=== PATIENT | female | born 1945 | race Caucasian/White ===

== ENCOUNTER 2020-08-10 08:19 | Outpatient (REF) | payer MEDICARE, SELFPAY ==
[2020-08-10 11:44] LABS: Estimated Average Glucose 143 mg/dL; Hemoglobin A1C 151.4454 umol/L; Hemoglobin A1c % 6.6 %
[2020-08-10 11:47] LABS: Hematocrit 39.2 % (37-47); Hemoglobin 12.2 g/dl (12.0-16.0); Mean Corpuscular HGB Conc 31.1 g/dl (31.0-35.0); Mean Corpuscular Hemoglobin 26.2 pg (27.0-33.0); Mean Corpuscular Volume 84.3 fL (80-98); Mean Platelet Volume 9.3 fL (9.4-12.3); Platelet Count 243 X10*3/uL (160-400); Red Blood Count 4.65 X10*6/uL (4.20-5.50); Red Cell Distribution Width 14.1 % (11.0-16.0); White Blood Count 6.3 X10*3/uL (4.8-10.8)
[2020-08-10 12:22] LABS: Alanine Aminotransferase 12 U/L (0-31); Albumin Level 4.5 g/dL (3.5-5.0); Alkaline Phosphatase 64 U/L (39-117); Anion Gap 14 (12-20); Aspartate Amino Transferase 16 U/L (5-31); Bilirubin Total 0.8 mg/dL (0.0-1.0); Blood Urea Nitrogen 15 mg/dL (9-16); Calcium 9.4 mg/dL (8.4-10.2); Carbon Dioxide 29 mmol/L (22-29); Chloride 104 mmol/L (96-108); Cholesterol 172 mg/dL; Estimated Glomerular Filt Rate 54; Glucose Fasting 119 mg/dL (60-99); HDL Cholesterol 60 mg/dL; LDL Cholesterol Calculated 86 mg/dl; Potassium 4.6 mmol/L (3.3-5.1); Sodium 142 mmol/L (135-145); Total Protein 7.4 g/dL (6.5-8.0); Triglycerides 131 mg/dL
[2020-08-10 12:34] LABS: Creatinine Urine 98.26 mg/dL; Microalbum/Creatinine Ratio Ur 7.1 ug/mg cr
== END 2020-08-10 08:20 | disposition home or self-care (01) ==
LOC: HO.HMGCLDS 08:19
PROVIDERS: PCP Internal Medicine; Visit Provider Internal Medicine
DX: R13.12 Dysphagia, oropharyngeal phase (principal); I10 Essential (primary) hypertension; E11.9 Type 2 diabetes mellitus without complications; E78.2 Mixed hyperlipidemia
CPT/HCPCS: 36415; 80053; 80061; 82043; 83036; 85027

== ENCOUNTER → 2020-10-05 12:46 | Outpatient (BNVA) | payer MEDICARE, SELFPAY | PROVIDERS: PCP Internal Medicine; Visit Provider Physician Assistant ==

== ENCOUNTER → 2020-11-16 08:50 | Outpatient (BNVA) | payer MEDICARE, SELFPAY | PROVIDERS: PCP Internal Medicine; Referring Provider Internal Medicine; Visit Provider Nurse Practitioner Family | DX: K59.00 Constipation, unspecified (principal); Z12.11 Encounter for screening for malignant neoplasm of colon | CPT/HCPCS: Q3014 ==

== ENCOUNTER 2020-11-30 12:18 | Outpatient (REF) | payer MEDICARE, SELFPAY ==
[2020-11-30 13:57] LABS: Hematocrit 36.6 % (37-47); Hemoglobin 11.4 g/dl (12.0-16.0); Mean Corpuscular HGB Conc 31.1 g/dl (31.0-35.0); Mean Corpuscular Hemoglobin 25.8 pg (27.0-33.0); Mean Corpuscular Volume 82.8 fL (80-98); Platelet Count 267 X10*3/uL (160-400); Red Blood Count 4.42 X10*6/uL (4.20-5.50); White Blood Count 8.7 X10*3/uL (4.8-10.8)
[2020-11-30 14:30] LABS: Alanine Aminotransferase 14 U/L (0-31); Albumin Level 4.4 g/dL (3.5-5.0); Alkaline Phosphatase 69 U/L (39-117); Anion Gap 12 (12-20); Aspartate Amino Transferase 17 U/L (5-31); Bilirubin Total 0.3 mg/dL (0.0-1.0); Blood Urea Nitrogen 13 mg/dL (9-16); Calcium 9.7 mg/dL (8.4-10.2); Carbon Dioxide 27 mmol/L (22-29); Chloride 106 mmol/L (96-108); Estimated Glomerular Filt Rate 55; Glucose Random 104 mg/dL (60-115); Potassium 4.1 mmol/L (3.3-5.1); Sodium 141 mmol/L (135-145); Total Protein 7.2 g/dL (6.5-8.0)
== END 2020-11-30 12:19 | disposition home or self-care (01) ==
LOC: HO.HMGCLDS 12:18
PROVIDERS: PCP Internal Medicine; Visit Provider Internal Medicine
DX: R53.83 Other fatigue (principal)
CPT/HCPCS: 36415; 80053; 85027

== ENCOUNTER → 2020-12-18 09:06 | Outpatient (BNVA) | payer MEDICARE, SELFPAY | PROVIDERS: PCP Internal Medicine; Visit Provider Nurse Practitioner Family | DX: Z13.89 Encounter for screening for other disorder (principal) | CPT/HCPCS: Q3014 ==

== ENCOUNTER 2021-01-01 08:56 | Outpatient (REF) | payer MEDICARE, SELFPAY ==
[2021-01-01 11:40] LABS: Hematocrit 39.5 % (37-47); Hemoglobin 12.4 g/dl (12.0-16.0); Mean Corpuscular HGB Conc 31.4 g/dl (31.0-35.0); Mean Corpuscular Hemoglobin 26.3 pg (27.0-33.0); Mean Corpuscular Volume 83.7 fL (80-98); Mean Platelet Volume 9.1 fL (9.4-12.3); Platelet Count 258 X10*3/uL (160-400); Red Blood Count 4.72 X10*6/uL (4.20-5.50); Red Cell Distribution Width 14.2 % (11.0-16.0); White Blood Count 6.7 X10*3/uL (4.8-10.8)
[2021-01-01 12:15] LABS: Iron 57 mcg/dL (30-160); Percent Iron Saturation 17 % (15-50); Total Iron Binding Capacity 341 mcg/dL (228-428); Unsaturated Iron Binding 284 ug/dL
[2021-01-01 12:44] LABS: Vitamin B12 986 pg/mL (200-900)
== END 2021-01-01 08:57 | disposition home or self-care (01) ==
LOC: HO.HMGCLDS 08:56
PROVIDERS: PCP Internal Medicine; Visit Provider Internal Medicine
DX: R53.83 Other fatigue (principal); D64.9 Anemia, unspecified
CPT/HCPCS: 36415; 82607; 83540; 85027

== ENCOUNTER 2021-01-18 10:50 | Day surgery (SDC) | payer MEDICARE, SELFPAY ==
[2021-01-11 14:44] VITALS: BMI 29.9
--- NOTE | 2021-01-15 08:32 | P.CONAN_ITS ---
Documented by User: Trudi Graciela 01/15/21 08:33 HPI - Anesthesia Eval Consult details Narrative: 75yo F for Colonoscopy PMFSH Active Problems Active Problems: All Active Problems (Updated 12/01/20 @ 15:09 by Kayla Diego MD) Anemia (Acute) Fatigue (Acute) Type 2 diabetes mellitus (Acute) Hyperlipidemia (Acute) HTN (hypertension) (Acute) GERD (gastroesophageal reflux disease) (Acute) Normal colonoscopy (Acute) Past Medical History Medical History Anemia Chronic lower back pain Fatigue GERD (gastroesophageal reflux disease) HTN (hypertension) Hyperlipidemia Left shoulder tendinitis Normal colonoscopy Type 2 diabetes mellitus Family History Family History Father No problems noted. 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 Meds Allergies Allergy/AdvReac Type Severity Reaction Status Date / Time Erythromycin Allergy Intermediate abd pain Verified 01/11/21 14:31 Home Medications Medication Instructions Recorded Confirmed Last Taken Type cholecalciferol (vitamin D3) 50 50 mcg PO DAILY 10/05/20 01/11/21 Unknown History mcg (2,000 unit) capsule Exam Exam Date and Time: January 15, 2021 0832 Height,Weight and Vital Signs: Height 5 ft 2 in Weight 74.389 kg Pertinent Lab Results Pertinent Lab Results: Laboratory Tests 11/30/20 01/01/21 12:25 09:02 WBC 6.7 Hgb 12.4 Hct 39.5 Plt Count 258 Sodium 141 Potassium 4.1 Chloride 106 Carbon Dioxide 27 BUN 13 Creatinine 0.99 Assessment and Plan Assessment Anesthesia Assessment: Chart Reviewed Documented by User: Gneesis Quiñones MD 01/18/21 12:36 PMFSH Past Medical History Medical History Anemia Chronic lower back pain Fatigue GERD (gastroesophageal reflux disease) HTN (hypertension) Hyperlipidemia Left shoulder tendinitis Normal colonoscopy Type 2 diabetes mellitus Family History Family History Father No problems noted. 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 Meds Allergies Allergy/AdvReac Type Severity Reaction Status Date / Time Erythromycin Allergy Intermediate abd pain Verified 01/11/21 14:31 Home Medications Medication Instructions Recorded Confirmed Last Taken Type cholecalciferol (vitamin D3) 50 50 mcg PO DAILY 10/05/20 01/11/21 Unknown History mcg (2,000 unit) capsule Exam Airway Mallampati Class: II Neck ROM: Full Loose/Missing/Broken Teeth: No Heart: RRR Lungs: CTA Assessment and Plan Assessment Anesthesia Assessment: Anesthesia Plan Discussed Final Anesthetic Review History of Problems with Anesthesia: No NPO: Yes ASA Class: II Final Preanesthetic Review: Meds/Allgs Chart Reviewed, Consent Obtained/Reviewed and Anes Risks/Benef Reviewed Patient Risk: Low Procedure Risk: Low Anesthetic Plan Anesthetic Plan: MAC: Disposition: Standard PACU
[2021-01-18 11:06] VITALS: BP 150/72; PULSE 69; RESP 16; TEMP 36.5; O2SAT 96
[2021-01-18 11:12] LABS: Glucose, Whole Blood 107 mg/dL (60-115)
[2021-01-18] MEDS: Lactated Ringers 1,000 ML 100 ML IVCONT (11:21)
--- NOTE | 2021-01-18 12:16 | MHC.SHP ---
Pre-Procedural Eval Section A Date of Service: 01/18/21 The patient is an INPATIENT: No The History & Physical has been completed within 30 days and I have reviewed it.: No Section B Chief Complaint: Screening, Constipation Details of Present Illness: Colon cancer screening, family history of colon cancer Relevant Family History (Specify if Yes): Yes Relevant Social History: None Present Medications: see Short Stay Collaborative assessment Medical History: Significant History (Anemia Chronic lower back pain Fatigue GERD (gastroesophageal reflux disease) HTN (hypertension) Hyperlipidemia Left shoulder tendinitis Normal colonoscopy Type 2 diabetes mellitus) History of Previous Operations: Relevant previous surgery/procedure and date(s) (hx of colonoscopy) Allergies: Allergies Allergy/AdvReac Type Severity Reaction Status Date / Time Erythromycin Allergy Intermediate abd pain Verified 01/11/21 14:31 Review of Systems Sugical H&P ROS: Negative: Constitution, Cardiovascular, Respiratory and Gastrointestinal Exam Surgical H&P Exam: Normal: Heart, Normal: Lungs, Normal: Extremities and Normal: Abdomen Plan Diagnosis/Plan: Unchanged I have reviewed the history and physical and performed a pertinent physical examination on my patient. No changes have occurred unless specified.
--- NOTE | 2021-01-18 12:21 | P.BOP_ITS ---
Brief Operative Note Date of Service: 01/18/21 Pre-op diagnosis: Colon cancer screening, chronic constipation, family history of colon cancer (sister at age 58 yrs) Post-op diagnosis: other (Colon polyp, diverticulosis) Procedure: COLONOSCOPY TILL CECUM WITH THE SNARE POLYPECTOMY Consent: Indications for the procedure and potential complications of bleeding, perforation, reaction to medications and missed diagnosis were discussed with the patient and informed consent was obtained. Instrument: Olympus PCF H 190 L variable stiffness pediatric colonoscope Monitoring: Vital signs and clinical assessment, intermittent blood pressure monitoring, continuous EKG monitoring, Pulse oximetry and Carbon Dioxide monitoring were done throughout the procedure. Colon withdrawl time was 15 minutes. Procedure: The patient was placed in the left lateral decubitis position and pre-procedure medications were administered. After a digital rectal examination of the ano-rectum, the video colonoscope was inserted into the rectum and advanced through the colon to the cecum. The colonoscope was slowly withdrawn in a retrograde panoramic fashion and the colon mucosa was carefully examined including a retroflexed view of the rectum. Findings and interventions are described below. Procedure Difficulty: Without difficulty Findings: Terminal Ileum: Not evaluated Cecum: Normal Ascending Colon: Moderate diverticulosis Transverse Colon: Moderate diverticulosis Descending Colon: Moderate diverticulosis Sigmoid Colon: Moderate diverticulosis Rectum: A 10 mm sessile polyp removed with a cold snare Ano-rectum: Normal Colon preparation: Good after some irrigation Impression and Post Procedure Diagnosis: Colonoscopy Findings: One medium sized polyp removed Moderate diverticulosis seen in the entire colon Moderate hemorrhoids on retroflexed exam. Plan: Await pathology results Patient has an appointment on 02/09/21 in the [facility] with Althea Meredith FNP-BC . Repeat Colonoscopy interval based on path results - in 3-5 years if polyp is adenomatous and due to positive FH of colon cancer. Above findings were reviewed with the patient and colon polyps and diverticulosis handouts were given in the discharge area Surgeon: Abbi Reyes MD Anesthesia: MAC (Dr Quiñones) Was an Negative Developer used for this Procedure?: Yes Negative Developer: Jignesh Ellis Estimated blood loss (mL): 0 Pathology: other (A. RECTAL POLYP) Condition: stable Disposition: PACU
[2021-01-18 12:56] VITALS: BP 105/44; PULSE 69; RESP 18; TEMP 36.4; O2SAT 99
[2021-01-18 13:11] VITALS: BP 125/58; PULSE 60; RESP 16; O2SAT 97
--- NOTE | 2021-01-24 18:08 | P.OP_ITS ---
Operative Note Operative Note Date of Service: 01/18/21 Narrative: Pre-op diagnosis:?Colon cancer screening, chronic constipation, family history of colon cancer (sister at age 58 yrs) Post-op diagnosis:?other (Colon polyp, diverticulosis) Procedure:? COLONOSCOPY TILL CECUM WITH THE SNARE POLYPECTOMY Consent: Indications for the procedure and potential complications of bleeding, perforation, reaction to medications and missed diagnosis were discussed with the patient and informed consent was obtained. Instrument: Olympus PCF H 190 L variable stiffness pediatric colonoscope Monitoring: Vital signs and clinical assessment, intermittent blood pressure monitoring, continuous EKG monitoring, Pulse oximetry and Carbon Dioxide monitoring were done throughout the procedure. Colon withdrawl time was 15 minutes. Procedure: The patient was placed in the left lateral decubitis position and pre-procedure medications were administered. After a digital rectal examination of the ano-rectum, the video colonoscope was inserted into the rectum and advanced through the colon to the cecum. The colonoscope was slowly withdrawn in a retrograde panoramic fashion and the colon mucosa was carefully examined including a retroflexed view of the rectum. Findings and interventions are described below. Procedure Difficulty: Without difficulty Findings: Terminal Ileum: Not evaluated Cecum:? Normal Ascending Colon:? Moderate diverticulosis Transverse Colon:? Moderate diverticulosis Descending Colon:? Moderate diverticulosis Sigmoid Colon:? Moderate diverticulosis Rectum:? A 10 mm sessile polyp removed with a cold snare Ano-rectum:? Normal Colon preparation:? Good? after some irrigation Impression and Post Procedure Diagnosis: Colonoscopy Findings: One medium sized polyp removed Moderate diverticulosis seen in the entire colon Moderate hemorrhoids on retroflexed exam. Plan: Await pathology results Patient has an appointment on 02/09/21 in the GI Clinic with Althea Meredith FNP- BC . Repeat Colonoscopy interval based on path results - in 3-5 years if polyp is adenomatous and due to positive FH of colon cancer. Above findings were reviewed with the patient and colon polyps and diverticulosis handouts were given in the discharge area Surgeon:?Abbi Reyes MD Anesthesia:?MAC (Dr Quiñones) Was an Lace Roller Operator used for this Procedure?:?Yes Lace Roller Operator:?Jignesh Ellis Estimated blood loss (mL):?0 Pathology:?other (A. RECTAL POLYP) Condition:?stable Disposition:?PACU
== END 2021-01-18 14:00 | disposition home or self-care (01) ==
PROVIDERS: PCP Internal Medicine; Visit Provider Internal Medicine Gastroenterology
PROC: 0DJD8ZZ Inspection of Lower Intestinal Tract, Via Natural or Artificial Opening Endoscopic (ICD-10-PCS; CPT 45378; principal; 2021-01-18 12:00)
DX: Z12.11 Encounter for screening for malignant neoplasm of colon (principal); Z80.0 Family history of malignant neoplasm of digestive organs; K62.1 Rectal polyp; K57.30 Diverticulosis of large intestine without perforation or abscess without bleeding; K59.09 Other constipation; K21.9 Gastro-esophageal reflux disease without esophagitis; D64.9 Anemia, unspecified; R53.83 Other fatigue; I10 Essential (primary) hypertension; E11.9 Type 2 diabetes mellitus without complications; Z79.84 Long term (current) use of oral hypoglycemic drugs; Z79.899 Other long term (current) drug therapy
CPT/HCPCS: 45385; 82947; 88305

== ENCOUNTER → 2021-02-09 12:14 | Outpatient (BNVA) | payer MEDICARE, SELFPAY | PROVIDERS: PCP Internal Medicine; Visit Provider Nurse Practitioner Family | CPT/HCPCS: Q3014 ==

== ENCOUNTER 2021-02-22 09:28 | Outpatient (REF) | payer MEDICARE, SELFPAY ==
[2021-02-22 11:35] LABS: Hematocrit 37.2 % (37-47); Hemoglobin 11.7 g/dl (12.0-16.0); Mean Corpuscular HGB Conc 31.5 g/dl (31.0-35.0); Mean Corpuscular Hemoglobin 26.2 pg (27.0-33.0); Mean Corpuscular Volume 83.2 fL (80-98); Mean Platelet Volume 9.2 fL (9.4-12.3); Platelet Count 228 X10*3/uL (160-400); Red Blood Count 4.47 X10*6/uL (4.20-5.50); Red Cell Distribution Width 13.8 % (11.0-16.0); White Blood Count 6.6 X10*3/uL (4.8-10.8)
[2021-02-22 11:45] LABS: Alanine Aminotransferase 13 U/L (0-31); Albumin Level 4.4 g/dL (3.5-5.0); Alkaline Phosphatase 61 U/L (39-117); Anion Gap 14 (12-20); Aspartate Amino Transferase 19 U/L (5-31); Bilirubin Total 0.6 mg/dL (0.0-1.0); Blood Urea Nitrogen 11 mg/dL (9-16); Calcium 9.7 mg/dL (8.4-10.2); Carbon Dioxide 24 mmol/L (22-29); Chloride 107 mmol/L (96-108); Cholesterol 169 mg/dL; Estimated Glomerular Filt Rate 60; Glucose Fasting 107 mg/dL (60-99); HDL Cholesterol 55 mg/dL; LDL Cholesterol Calculated 88 mg/dl; Potassium 4.5 mmol/L (3.3-5.1); Sodium 140 mmol/L (135-145); Total Protein 7.4 g/dL (6.5-8.0); Triglycerides 133 mg/dL
[2021-02-22 11:54] LABS: Estimated Average Glucose 134 mg/dL; Hemoglobin A1c % 6.3 %
[2021-02-22 12:22] LABS: Microalbum/Creatinine Ratio Ur 10.9 ug/mg cr
== END 2021-02-22 09:29 | disposition home or self-care (01) ==
LOC: HO.HMGCLDS 09:28
PROVIDERS: PCP Internal Medicine; Visit Provider Internal Medicine
DX: E11.9 Type 2 diabetes mellitus without complications (principal); E78.5 Hyperlipidemia, unspecified; I10 Essential (primary) hypertension
CPT/HCPCS: 36415; 80053; 80061; 82043; 83036; 85027

== ENCOUNTER 2021-04-22 10:09 | Emergency (ER) | payer MEDICARE, SELFPAY ==
--- NOTE | ~2021-04-22 | US_ITS ---
EXAMINATION: US VENOUS ULTRASOUND WITH DOPPLER LOWER EXTREMITY, BILATERAL CLINICAL INFORMATION: Bilateral lower extremity edema/swelling. COMPARISON: None TECHNIQUE: Ultrasound of the deep veins is performed from the hip to the calf with compression sonography and color and pulse Doppler assessment. Spectral analysis with color-flow imaging is performed. FINDINGS: RIGHT: There is normal venous compression and respiratory variation and augmented flow. The visualized common femoral vein, superficial femoral vein, profunda femoral vein, popliteal vein, and the trifurcation region shows no evidence of deep venous thrombosis. There is no significant popliteal fossa cyst. LEFT: There is normal venous compression and respiratory variation and augmented flow. The visualized common femoral vein, superficial femoral vein, profunda femoral vein, popliteal vein, and the trifurcation region shows no evidence of deep venous thrombosis. There is no significant popliteal fossa cyst. If the patient's symptoms persist, followup ultrasound in 5 days 7 days might be of value to exclude proximal propagation from a non-visualized calf vein. US/US venous duplex LE BI IMPRESSION: No DVT demonstrated in the bilateral lower extremity.
[2021-04-22 10:17] VITALS: BP 176/67; PULSE 65; RESP 19; TEMP 36.1; O2SAT 99; BMI 29.2
[2021-04-22 12:00] LABS: Alanine Aminotransferase 16 U/L (0-31); Albumin Level 4.6 g/dL (3.5-5.0); Alkaline Phosphatase 71 U/L (39-117); Anion Gap 13 (12-20); Aspartate Amino Transferase 19 U/L (5-31); Bilirubin Total 0.6 mg/dL (0.0-1.0); Blood Urea Nitrogen 16 mg/dL (9-16); Calcium 9.6 mg/dL (8.4-10.2); Carbon Dioxide 24 mmol/L (22-29); Chloride 105 mmol/L (96-108); Estimated Glomerular Filt Rate 60; Glucose Random 107 mg/dL (60-115); Potassium 3.9 mmol/L (3.3-5.1); Sodium 138 mmol/L (135-145); Total Protein 7.7 g/dL (6.5-8.0)
--- NOTE | 2021-04-22 12:25 | ED_ITS ---
HPI - General Adult General Chief complaint: General Medical Stated complaint: swollen legs Time Seen by Provider: 04/22/21 12:25 Source: patient Mode of arrival: ambulatory Limitations: no limitations History of Present Illness HPI narrative: 5 days prior patient had right leg and left leg pain. New swelling since Monday to both legs, normally has no edema. No liver or kidney issues. Patient is a diabetic. There is a family history of blood clots. No new medications. No COVID, no recent travel Onset (ago): day(s) Associated symptoms: denies other symptoms Related Data Home Medications Medication Instructions Recorded Confirmed cholecalciferol (vitamin D3) 50 50 mcg PO DAILY 10/05/20 02/23/21 mcg (2,000 unit) capsule Previous Rx's Medication Instructions Recorded metformin 1,000 mg tablet 1,000 mg PO DAILY #90 tab 04/20/20 omeprazole 20 mg capsule,delayed 20 mg PO DAILY #90 cap 08/31/20 release irbesartan 150 mg tablet 150 mg PO DAILY #90 tab 10/01/20 methylcellulose (laxative) 500 mg 500 mg PO DAILY #30 tab 11/16/20 tablet (Citrucel) pravastatin 10 mg tablet 10 mg PO BEDTIME #90 tab 12/25/20 sertraline 50 mg tablet 50 mg PO DAILY #90 tab 02/23/21 furosemide 20 mg tablet (Lasix) 10 mg PO QAM #20 tab 04/22/21 Allergies Allergy/AdvReac Type Severity Reaction Status Date / Time Erythromycin Allergy Intermediate abd pain Verified 02/23/21 10:32 Review of Systems Constitutional: Constitutional: Reports no additional constitutional complaints Eyes: Eyes: Reports no additional eye complaints ENT: Denies dizziness Cardiovascular: Cardiovascular: Reports no additional cardiovascular complaints Respiratory: Respiratory: Reports as per HPI Gastrointestinal: Gastrointestinal: Reports no additional gastrointestinal complaints Genitourinary: Genitourinary: Reports no additional female genitourinary complaints Musculoskeletal: Musculoskeletal: Reports no additional musculoskeletal complaints Integumentary/Breasts: Skin/Breast: Denies rash Neurologic: Reports system reviewed and no additional complaints, except as documented, Denies dizziness and Denies Sensory deficit (Neuro) Psychiatric: Psychiatric: Denies anxiety [facility] Past Medical History Medical History (Updated 04/22/21 @ 13:46 by Angelo Lyons MD) Anemia Chronic lower back pain Diverticulosis Fatigue GERD (gastroesophageal reflux disease) HTN (hypertension) Hyperlipidemia Left shoulder tendinitis Normal colonoscopy Sciatica Type 2 diabetes mellitus Surgical History H/O colonoscopy Family History Family History Father No problems noted. 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 Physical Exam Vital Signs: Vital Signs: Last Vital Signs Temp 97 F 04/22/21 10:17 Pulse 65 04/22/21 10:17 Resp 19 04/22/21 10:17 BP 176/67 H 04/22/21 10:17 Pulse Ox 99 04/22/21 10:17 Body Mass Index 29.2 Const: General: healthy appearing Nutritional Appearance: average body habitus Orientation/consciousness: oriented to person and patient oriented x3 Limitations: no limitations HENMT: Head: Yes normal to inspection Ears: external ears normal General nose exam: Normal external nose present Mouth: Normal oral and palatal mucosa present and oropharynx normal Throat: Yes posterior oropharynx normal Eyes: General: appearance normal, both eyes and all related structures Neck: Other: supple Neck: Yes normal visual inspection Chest: Chest palpation & inspection: normal inspection of the chest Resp: Auscultation: clear to auscultation bilaterally Cardio: Jugular venous distension: no JVD Rate: regular rate Rhythm: regular rhythm Heart sounds: S1 normal heart sound present and S2 normal heart sound present GI: Inspection: Yes normal to inspection Palpation (GI): Soft to palpation, nontender and No hepatosplenomegaly present Auscultation: normal bowel sounds : General: Yes no CVA tenderness Back/Spine/Pelvis: Back: no CVA tenderness Skin: General skin exam: no rashes or lesions noted Neuro: General: oriented to person and patient oriented x3 Cranial nerves: Yes CN's II-XII intact bilaterally Motor exam (neuro): 5/5 motor strength present throughout Sensory Exam: No Sensory deficit (Neuro) Extrem: Other: Bilateral 2+ edema Psych: Appearance: grossly normal Course Reevaluation(s) Reevaluation #1: labs and duplex normal will dc on low dose lasix Time: 13:45 Medical Decision Making Lab Data Result diagrams: 04/22/21 13:30 04/22/21 11:38 Labs: Lab Results 04/22/21 04/22/21 Range/Units 11:38 13:30 WBC 7.7 (4.8-10.8) X10*3/uL RBC 4.50 (4.20-5.50) X10*6/uL Hgb 11.9 L (12.0-16.0) g/dl Hct 38.0 (37.0-47.0) % MCV 84.4 (80.0-98.0) fL MCH 26.4 L (27.0-33.0) pg MCHC 31.3 (31.0-35.0) g/dl RDW 13.9 (11.0-16.0) % Plt Count 229 (160-400) X10*3/uL MPV 8.7 L (9.4-12.3) fL Immature Gran % (Auto) 0.4 (0.0-0.4) % Neut % (Auto) 58.2 (45-73) % Lymph % (Auto) 33.1 (20-40) % Cole % (Auto) 6.1 (2-11) % Eos % (Auto) 1.8 (0-4) % Baso % (Auto) 0.4 (0-2) % Lymph # (Auto) 2.6 (1.2-4.9) X10*3/uL Cole # (Auto) 0.5 (0.1-1.2) X10*3/uL Eos # (Auto) 0.1 (0.0-0.4) X10*3/uL Baso # (Auto) 0.0 (0.0-0.2) X10*3/uL Abs Immat Gran (auto) 0.03 (0.00-0.03) X10*3/uL Absolute Neuts (auto) 4.5 (2.0-8.3) x10*3/uL Absolute Nucleated RBC 0.000 (0.0-0.012) X10*3/uL Nucleated RBC % (auto) 0.0 (0.0-0.2) /100WBC Sodium 138 (135-145) mmol/L Potassium 3.9 (3.3-5.1) mmol/L Chloride 105 (96-108) mmol/L Carbon Dioxide 24 (22-29) mmol/L Anion Gap 13 (12-20) BUN 16 (9-16) mg/dL Creatinine 0.92 (0.5-1.4) mg/dL Estim Creat Clear Calc 50.0 Estimated GFR 60 Random Glucose 107 (60-115) mg/dL Calcium 9.6 (8.4-10.2) mg/dL Total Bilirubin 0.6 (0.0-1.0) mg/dL AST 19 (5-31) U/L ALT 16 (0-31) U/L Alkaline Phosphatase 71 (39-117) U/L Total Protein 7.7 (6.5-8.0) g/dL Albumin 4.6 (3.5-5.0) g/dL Imaging Data bilateral duplex: Radiologist's impression: IMPRESSION: No DVT demonstrated in the bilateral lower extremity. Discharge Plan Discharge Clinical Impression: Edema leg Patient Disposition: Home, Self-Care Instructions: Leg Edema (ED) Additional Instructions: wear compression socks when legs are not elevated Prescriptions: New furosemide [Lasix] 20 mg tablet 10 mg PO QAM Qty: 20 RF: 0 No Action metformin 1,000 mg tablet 1,000 mg PO DAILY Qty: 90 RF: 3 omeprazole 20 mg capsule,delayed release(DR/EC) 20 mg PO DAILY Qty: 90 RF: 3 irbesartan 150 mg tablet 150 mg PO DAILY Qty: 90 RF: 3 pravastatin 10 mg tablet 10 mg PO BEDTIME Qty: 90 RF: 3 sertraline 50 mg tablet 50 mg PO DAILY Qty: 90 RF: 3 cholecalciferol (vitamin D3) 50 mcg (2,000 unit) capsule 50 mcg PO DAILY RF: 0 Citrucel 500 mg tablet 500 mg PO DAILY Qty: 30 RF: 2 Referrals: Kayla Diego MD [Primary Care Provider] - 1 week
[2021-04-22 13:39] LABS: MANUAL DIFF FLAG NO
[2021-04-22 13:41] LABS: Basophils Percent Auto 0.4 % (0-2); Eosinophils Absolute Auto 0.1 X10*3/uL (0.0-0.4); Eosinophils Percent Auto 1.8 % (0-4); Hemoglobin 11.9 g/dl (12.0-16.0); Imm Gran Abs Auto 0.03 X10*3/uL (0.00-0.03); Imm Gran Pct Auto 0.4 % (0.0-0.4); Lymphocytes Absolute Auto 2.6 X10*3/uL (1.2-4.9); Lymphocytes Percent Auto 33.1 % (20-40); Mean Corpuscular HGB Conc 31.3 g/dl (31.0-35.0); Mean Corpuscular Hemoglobin 26.4 pg (27.0-33.0); Mean Corpuscular Volume 84.4 fL (80.0-98.0); Mean Platelet Volume 8.7 fL (9.4-12.3); Monocytes Absolute Auto 0.5 X10*3/uL (0.1-1.2); Monocytes Percent Auto 6.1 % (2-11); Neutrophils Absolute Auto 4.5 x10*3/uL (2.0-8.3); Neutrophils Percent Auto 58.2 % (45-73); Platelet Count 229 X10*3/uL (160-400); Red Cell Distribution Width 13.9 % (11.0-16.0); White Blood Count 7.7 X10*3/uL (4.8-10.8)
[2021-04-22 14:06] LABS: B Type Natriuretic Peptide 66 pg/mL (<100)
== END 2021-04-22 14:05 | disposition home or self-care (01) ==
PROVIDERS: Emergency Provider Emergency Medicine; PCP Internal Medicine
DX: R60.0 Localized edema (principal); I10 Essential (primary) hypertension; E11.9 Type 2 diabetes mellitus without complications
CPT/HCPCS: 36415; 80053; 83880; 85025; 93970; 99282; 99284

== ENCOUNTER 2021-05-07 11:11 | Emergency (ER) | payer MEDICARE, SELFPAY ==
--- NOTE | ~2021-05-07 | XR_ITS ---
EXAMINATION: XR CHEST CLINICAL INFORMATION: Shortness of breath COMPARISON: Chest radiographs 03/05/2019 TECHNIQUE: Portable upright AP view of the chest was obtained. FINDINGS: The heart is normal in size and the vascularity is normal. There is no vascular congestion. No lobar or segmental airspace consolidation. Fine linear scar again suggested lateral left base. There is borderline blunting right costophrenic angle which may suggest small effusion or subsegmental atelectasis. The hilar and mediastinal contours are normal. No visible acute bony abnormality. XR/XR chest 1V IMPRESSION: 1. Blunting right lateral costophrenic angle which may suggest small effusion or subsegmental atelectasis. 2. No vascular congestion or airspace consolidation.
--- NOTE | ~2021-05-07 | US_ITS ---
EXAMINATION: BILATERAL LOWER EXTREMITY DEEP VENOUS ULTRASOUND CLINICAL INFORMATION: Bilateral lower extremity pain and swelling. COMPARISON: Bilateral lower extremity DVT study 04/22/2021 TECHNIQUE: Duplex Doppler imaging with compression maneuvers were performed of the bilateral lower extremity deep venous systems. FINDINGS: The bilateral visualized common femoral, femoral and popliteal veins demonstrate normal compressibility and color flow without evidence of venous thrombosis. Visualized portions of the bilateral calf veins demonstrate normal color fill-in suggesting patency. There is no evidence of a Skinner's cyst. US/US venous duplex LE BI IMPRESSION: No evidence of deep venous thrombosis involving the bilateral lower extremities.
[2021-05-07 11:13] VITALS: BP 117/60; PULSE 64; RESP 18; TEMP 36.6; O2SAT 100; BMI 30.2
--- NOTE | 2021-05-07 16:08 | ECG_ITS ---
Test Reason : EDEMA Blood Pressure : / mmHG Vent. Rate : 063 BPM Atrial Rate : 063 BPM P-R Int : 144 ms QRS Dur : 072 ms QT Int : 406 ms P-R-T Axes : 008 018 021 degrees QTc Int : 415 ms Normal sinus rhythm Normal ECG No previous ECGs available Referred By: Elza Cook Electronically Signed By:RISHI CARDENAS MD
--- NOTE | 2021-05-07 16:12 | ED_ITS ---
HPI - General Adult General Chief complaint: General Medical Stated complaint: swollen legs Time Seen by Provider: 05/07/21 15:58 Source: patient Mode of arrival: ambulatory Limitations: no limitations History of Present Illness HPI narrative: 76-year-old female with a history of type 2 diabetes, HTN, HLD, GERD, sciatica presents to the ER with leg swelling for the last 2 and half weeks. Patient was seen here on April 22 for similar presentation. She had negative lower extremity Dopplers the normal BNP. She went back to an urgent care today for worsening edema, they advised her to come to the emergency room for further evaluation with concern of heart failure. Patient admits to some mild shortness of breath when she is lying flat. She has no shortness of breath at rest or with exertion. She admits to a high salt diet. She has not been wearing compression stockings and she rarely elevates her legs. She has known venous insufficiency and varicose veins of her bilateral lower extremities. She states while in the waiting room with her legs dependent her ?kankles? have gotten bigger. No fever, chills, calf pain, chest pain. MD complaint: Lower extremity edema Onset (ago): week(s) (2-3) Location: left, right and lower extremity Radiation: proximal Severity: moderate Severity scale (1-10): 5 Quality: aching Pain Consistency: constant Relieving factors: none Exacerbating factors: movement Associated symptoms: other (Mild orthopnea) Treatments prior to arrival: none Related Data Home Medications Medication Instructions Recorded Confirmed cholecalciferol (vitamin D3) 50 50 mcg PO DAILY 10/05/20 05/05/21 mcg (2,000 unit) capsule Previous Rx's Medication Instructions Recorded metformin 1,000 mg tablet 1,000 mg PO DAILY #90 tab 04/20/20 omeprazole 20 mg capsule,delayed 20 mg PO DAILY #90 cap 08/31/20 release irbesartan 150 mg tablet 150 mg PO DAILY #90 tab 10/01/20 methylcellulose (laxative) 500 mg 500 mg PO DAILY #30 tab 11/16/20 tablet (Citrucel) pravastatin 10 mg tablet 10 mg PO BEDTIME #90 tab 12/25/20 sertraline 50 mg tablet 50 mg PO DAILY #90 tab 02/23/21 furosemide 20 mg tablet (Lasix) 10 mg PO QAM #20 tab 04/22/21 doxycycline hyclate 100 mg capsule 200 mg PO ONCE #2 cap 05/01/21 permethrin 5 % topical cream 1 appl TOPICAL Q14D #60 g 05/01/21 furosemide 20 mg tablet (Lasix) 20 mg PO QAM #5 tab 05/07/21 Allergies Allergy/AdvReac Type Severity Reaction Status Date / Time Erythromycin Allergy Intermediate abd pain Verified 05/07/21 11:13 Review of Systems Review of Systems: Constitutional: No Fever, No Chills ENT/Mouth: No sore throat, No Rhinorrhea, No Swallowing Difficulty Cardiovascular: No Chest Pain, No SOB, + Orthopnea, + Edema Respiratory: No Cough, No Sputum, No Wheezing, No dyspnea Gastrointestinal: No Nausea, No Vomiting, No Diarrhea, No abdominal Pain Genitourinary: No Dysuria, No Urinary Frequency, No Hematuria Musculoskeletal: No joint pain, No Myalgias Skin: No Skin Lesions, No rash Neuro: No Weakness, No Numbness, No Dizziness, No Headache Psych: + Anxiety/Panic, No Depression Heme/Lymph: No Bruising, No Lymphadenopathy Endocrine: No Polyuria, No Polydipsia PMFSH Past Medical History Medical History Anemia Chronic lower back pain Diverticulosis Fatigue GERD (gastroesophageal reflux disease) HTN (hypertension) Hyperlipidemia Left shoulder tendinitis Normal colonoscopy Sciatica Type 2 diabetes mellitus Venous insufficiency Surgical History H/O colonoscopy Family History Family History Father No problems noted. 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 Oriented X3. No acute distress. Eyes: Pupils equal, round and reactive to light. ENT: Pharynx normal. Neck: Normal inspection. Neck supple. CVS: Normal heart rate and rhythm. Pulses normal. Respiratory: No respiratory distress. Breath sounds normal. Abdomen: Soft and nontender. +BS x4 Skin: Skin warm and dry. Normal skin color. Normal skin turgor. No rashes. Extremities: 2+ pitting lower extremity edema from feet to just below the knee. warm and well perfused. Superficial varicose veins present on the distal aspect of both lower extremities. Neuro: Oriented X 3. No motor deficit. No sensory deficit. Course Course Course Narrative: 76-year-old female presenting with worsening lower extremity edema for the last 2 or 3 weeks. She endorses some mild orthopnea and states the lower extremity swelling is getting worse. She has no history of CHF and is not on any diuretics. She admits to a high salt diet. She has not been weighing herself so does not know if she has gained weight. She had recent negative workup on 04/22. Will repeat workup including repeat lower extremity Dopplers to rule out distal DVT that may have propagated. Patient agreeable with plan. Her exam is reassuring with normal vital signs and clear lungs. Reevaluation(s) Reevaluation #1: May use more. Normal kidney function. Electrolytes are within normal limits. Troponin not concerning for ACS. EKG is normal. Chest x-ray s howed question of some atelectasis at the right lower lobe versus a trace pleural effusion. She is saturating 99% on room air and has no respiratory distress. Her lower extremity Dopplers are negative for DVT. At this time will give low-dose Lasix to help her excrete some extra water. We discussed the importance of restricting her salt and lifestyle modifications with leg elevation and compression stockings. Patient expressed understanding all follow-up with her primary care doctor. Medical Decision Making Lab Data Result diagrams: 05/07/21 16:32 05/07/21 16:32 Labs: Lab Results 05/07/21 05/07/21 05/07/21 Range/Units 16:32 16:32 16:32 WBC 9.0 (4.8-10.8) X10*3/uL RBC 4.23 (4.20-5.50) X10*6/uL Hgb 11.1 L (12.0-16.0) g/dl Hct 35.8 L (37.0-47.0) % MCV 84.6 (80.0-98.0) fL MCH 26.2 L (27.0-33.0) pg MCHC 31.0 (31.0-35.0) g/dl RDW 14.0 (11.0-16.0) % Plt Count TNP MPV 9.7 (9.4-12.3) fL Immature Gran % (Auto) 0.6 H (0.0-0.4) % Neut % (Auto) 56.3 (45-73) % Lymph % (Auto) 34.4 (20-40) % [place] % (Auto) 6.0 (2-11) % Eos % (Auto) 2.0 (0-4) % Baso % (Auto) 0.7 (0-2) % Lymph # (Auto) 3.1 (1.2-4.9) X10*3/uL [place] # (Auto) 0.5 (0.1-1.2) X10*3/uL Eos # (Auto) 0.2 (0.0-0.4) X10*3/uL Baso # (Auto) 0.1 (0.0-0.2) X10*3/uL Abs Immat Gran (auto) 0.05 H (0.00-0.03) X10*3/uL Absolute Neuts (auto) 5.1 (2.0-8.3) x10*3/uL Absolute Nucleated RBC 0.000 (0.0-0.012) X10*3/uL Nucleated RBC % (auto) 0.0 (0.0-0.2) /100WBC Smear Tech's Comments VERIFIED Sodium 139 (135-145) mmol/L Potassium 3.7 (3.3-5.1) mmol/L Chloride 104 (96-108) mmol/L Carbon Dioxide 23 (22-29) mmol/L Anion Gap 16 (12-20) BUN 13 (9-16) mg/dL Creatinine 0.94 (0.5-1.4) mg/dL Estim Creat Clear Calc 49.7 Estimated GFR 58 Random Glucose 108 (60-115) mg/dL Calcium 9.8 (8.4-10.2) mg/dL Magnesium 2.1 (1.6-2.6) mg/dL Total Bilirubin 0.4 (0.0-1.0) mg/dL Direct Bilirubin 0.2 (0.0-0.5) mg/dL AST 20 (5-31) U/L ALT 17 (0-31) U/L Alkaline Phosphatase 78 (39-117) U/L Troponin I High Sens 6.9 (<3.5-17.0) ng/L B-Natriuretic Peptide 52 (<100) pg/mL Total Protein 7.6 (6.5-8.0) g/dL Albumin 4.4 (3.5-5.0) g/dL Urine Color Urine Appearance Urine pH (5.0-8.0) Ur Specific [place] (1.005-1.025) Urine Protein (NEG-TRACE) MG/DL Urine Glucose (UA) (NEG) MG/DL Urine Ketones (NEG) MG/DL Urine Blood (NEG) Urine Nitrite (NEG) Ur Leukocyte Esterase (NEG) Urine RBC (0) /HPF Urine WBC (0-4) /HPF Ur Squamous Epith Cells /LPF Urine Bacteria /LPF 05/07/21 Range/Units 16:32 WBC (4.8-10.8) X10*3/uL RBC (4.20-5.50) X10*6/uL Hgb (12.0-16.0) g/dl Hct (37.0-47.0) % MCV (80.0-98.0) fL MCH (27.0-33.0) pg MCHC (31.0-35.0) g/dl RDW (11.0-16.0) % Plt Count MPV (9.4-12.3) fL Immature Gran % (Auto) (0.0-0.4) % Neut % (Auto) (45-73) % Lymph % (Auto) (20-40) % [place] % (Auto) (2-11) % Eos % (Auto) (0-4) % Baso % (Auto) (0-2) % Lymph # (Auto) (1.2-4.9) X10*3/uL [place] # (Auto) (0.1-1.2) X10*3/uL Eos # (Auto) (0.0-0.4) X10*3/uL Baso # (Auto) (0.0-0.2) X10*3/uL Abs Immat Gran (auto) (0.00-0.03) X10*3/uL Absolute Neuts (auto) (2.0-8.3) x10*3/uL Absolute Nucleated RBC (0.0-0.012) X10*3/uL Nucleated RBC % (auto) (0.0-0.2) /100WBC Smear Tech's Comments Sodium (135-145) mmol/L Potassium (3.3-5.1) mmol/L Chloride (96-108) mmol/L Carbon Dioxide (22-29) mmol/L Anion Gap (12-20) BUN (9-16) mg/dL Creatinine (0.5-1.4) mg/dL Estim Creat Clear Calc Estimated GFR Random Glucose (60-115) mg/dL Calcium (8.4-10.2) mg/dL Magnesium (1.6-2.6) mg/dL Total Bilirubin (0.0-1.0) mg/dL Direct Bilirubin (0.0-0.5) mg/dL AST (5-31) U/L ALT (0-31) U/L Alkaline Phosphatase (39-117) U/L Troponin I High Sens (<3.5-17.0) ng/L B-Natriuretic Peptide (<100) pg/mL Total Protein (6.5-8.0) g/dL Albumin (3.5-5.0) g/dL Urine Color YELLOW Urine Appearance CLEAR Urine pH 7.0 (5.0-8.0) Ur Specific [place] <= 1.005 (1.005-1.025) Urine Protein NEG (NEG-TRACE) MG/DL Urine Glucose (UA) NEG (NEG) MG/DL Urine Ketones NEG (NEG) MG/DL Urine Blood NEG (NEG) Urine Nitrite NEG (NEG) Ur Leukocyte Esterase TRACE H (NEG) Urine RBC 0-2 (0) /HPF Urine WBC 5-9 H (0-4) /HPF Ur Squamous Epith Cells TRACE /LPF Urine Bacteria TRACE /LPF ECG Data Attestation: I personally reviewed and interpreted this ECG as follows: Interpretation: Normal sinus rhythm, heart rate 63 beats per minute, normal NE interval 144 MS, no ST segment elevations or depressions, no ischemic findings. Critical Care Time Critical Care Time Critical Care Time: No Discharge Plan Discharge Clinical Impression: Edema Qualifiers: Edema type: unspecified Qualified Code(s): R60.9 - Edema, unspecified Patient Disposition: Home, Self-Care Instructions: Leg Edema (ED) Additional Instructions: Your lab workup today was unremarkable an your leg ultrasound did not show any blood clots. For your leg swelling and edema recommend taking the prescribed water pill to help you excrete extra water. You must decrease her salt intake, recommend 1.5 g or less. Do your best to elevate her legs whenever possible. Recommend getting compression stockings to help with the swelling as well. He was follow-up with your doctor for further management. If you develop new or worsening symptoms call 911 or come back to the ER for further evaluation. Prescriptions: New furosemide [Lasix] 20 mg tablet 20 mg PO QAM Qty: 5 RF: 0 No Action metformin 1,000 mg tablet 1,000 mg PO DAILY Qty: 90 RF: 3 omeprazole 20 mg capsule,delayed release(DR/EC) 20 mg PO DAILY Qty: 90 RF: 3 irbesartan 150 mg tablet 150 mg PO DAILY Qty: 90 RF: 3 pravastatin 10 mg tablet 10 mg PO BEDTIME Qty: 90 RF: 3 sertraline 50 mg tablet 50 mg PO DAILY Qty: 90 RF: 3 furosemide [Lasix] 20 mg tablet 10 mg PO QAM Qty: 20 RF: 0 permethrin 5 % cream 1 appl topical Q14D Qty: 60 RF: 0 doxycycline hyclate 100 mg capsule 200 mg PO ONCE Qty: 2 RF: 0 cholecalciferol (vitamin D3) 50 mcg (2,000 unit) capsule 50 mcg PO DAILY RF: 0 Citrucel 500 mg tablet 500 mg PO DAILY Qty: 30 RF: 2 Referrals: Kayla Diego MD [Primary Care Provider] - 1 week
[2021-05-07 16:41] LABS: Appearance Urine CLEAR; Color Urine YELLOW; Glucose Urine UA NEG (NEG); Leukocyte Esterase Urine TRACE (NEG); Nitrite Urine NEG (NEG); Specific Gravity - Urine <= 1.005 (1.005-1.025); UACC Culture Trigger YES; Urine Blood NEG (NEG); Urine Ketones NEG (NEG); Urine Protein NEG (NEG-TRACE)
[2021-05-07 16:44] LABS: Basophils Absolute Auto 0.1 X10*3/uL (0.0-0.2); Basophils Percent Auto 0.7 % (0-2); Eosinophils Absolute Auto 0.2 X10*3/uL (0.0-0.4); Hematocrit 35.8 % (37.0-47.0); Hemoglobin 11.1 g/dl (12.0-16.0); Imm Gran Abs Auto 0.05 X10*3/uL (0.00-0.03); Imm Gran Pct Auto 0.6 % (0.0-0.4); Lymphocytes Absolute Auto 3.1 X10*3/uL (1.2-4.9); Lymphocytes Percent Auto 34.4 % (20-40); MANUAL DIFF FLAG SCAN; Mean Corpuscular Hemoglobin 26.2 pg (27.0-33.0); Mean Corpuscular Volume 84.6 fL (80.0-98.0); Mean Platelet Volume 9.7 fL (9.4-12.3); Monocytes Absolute Auto 0.5 X10*3/uL (0.1-1.2); Neutrophils Absolute Auto 5.1 x10*3/uL (2.0-8.3); Neutrophils Percent Auto 56.3 % (45-73); PLT CLUMP 1; Red Blood Count 4.23 X10*6/uL (4.20-5.50); SCAN SMEAR FLAG 1
[2021-05-07 16:56] LABS: Alanine Aminotransferase 17 U/L (0-31); Albumin Level 4.4 g/dL (3.5-5.0); Alkaline Phosphatase 78 U/L (39-117); Anion Gap 16 (12-20); Aspartate Amino Transferase 20 U/L (5-31); Bilirubin Direct 0.2 mg/dL (0.0-0.5); Bilirubin Total 0.4 mg/dL (0.0-1.0); Blood Urea Nitrogen 13 mg/dL (9-16); Calcium 9.8 mg/dL (8.4-10.2); Carbon Dioxide 23 mmol/L (22-29); Chloride 104 mmol/L (96-108); Creatinine Clr Calc Pharmacy 49.7; Estimated Glomerular Filt Rate 58; Glucose Random 108 mg/dL (60-115); Magnesium 2.1 mg/dL (1.6-2.6); Potassium 3.7 mmol/L (3.3-5.1); Sodium 139 mmol/L (135-145); Total Protein 7.6 g/dL (6.5-8.0)
[2021-05-07 17:04] LABS: Troponin-I High Sensitivity 6.9 ng/L (<3.5-17.0)
[2021-05-07 17:09] LABS: RBC Urine 0-2 /HPF (0)
[2021-05-07 17:10] LABS: Bacteria Urine TRACE /LPF; Squamous Epithelial Cell Urine TRACE /LPF
[2021-05-07 17:13] LABS: B Type Natriuretic Peptide 52 pg/mL (<100)
[2021-05-07 17:16] LABS: SLIDE REVIEW VERIFIED
== END 2021-05-07 18:28 | disposition home or self-care (01) ==
PROVIDERS: Physician Assistant; Emergency Provider Emergency Medicine; PCP Internal Medicine
DX: R60.0 Localized edema (principal); R06.02 Shortness of breath; E11.9 Type 2 diabetes mellitus without complications; I10 Essential (primary) hypertension; E78.5 Hyperlipidemia, unspecified; Z79.02 Long term (current) use of antithrombotics/antiplatelets; Z79.899 Other long term (current) drug therapy
CPT/HCPCS: 36415; 71045; 80048; 80076; 81001; 83735; 83880; 84484; 85025; 87086; 93005; 93970; 99283; 99284

== ENCOUNTER 2021-06-09 08:31 | Outpatient (REF) | payer MEDICARE, SELFPAY ==
--- NOTE | ~2021-06-09 | US_ITS ---
EXAMINATION: US ABDOMEN COMPLETE CLINICAL INFORMATION: Abdominal distention. COMPARISON: No similar priors. TECHNIQUE: Real-time imaging of the abdominal viscera. FINDINGS: PANCREAS: Tail is obscured by overlying bowel gas. The visualized segments of the proximal pancreas are within normal limits. ABDOMINAL AORTA: The proximal, mid, and distal segments are normal in caliber. INFERIOR VENA CAVA: Visualized portions are normal. LIVER: Normal. The liver is normal in size. The liver contour is normal. Parenchymal echogenicity is normal. No focal hepatic lesion. There is no intrahepatic biliary duct dilatation seen. GALLBLADDER: Normal. The gallbladder is physiologically distended without evidence of stones, sludge, polyps, wall thickening or pericholecystic fluid. COMMON BILE DUCT: Normal in caliber measuring 0.6 cm in diameter. RIGHT KIDNEY: Normal. No hydronephrosis. No renal calculi or focal parenchymal lesions. The kidney measures 9.7 cm in maximum dimension. LEFT KIDNEY: Normal. No hydronephrosis. No renal calculi or focal parenchymal lesions. The kidney measures 9.6 cm in maximum dimension. SPLEEN: Normal. The spleen measures 9.9 cm in maximum dimension. FREE FLUID: None. US/US abdomen complete IMPRESSION: No acute sonographic findings. Specifically, no evidence of ascites.
--- NOTE | ~2021-06-09 | US_ITS ---
EXAMINATION: US PELVIS CLINICAL INFORMATION: Pelvic distention. Evaluate for ascites and masses. Postmenopausal. COMPARISON: No similar priors. TECHNIQUE: Ultrasound of the pelvis is performed using both transabdominal and transvaginal transducers along with Doppler. Transvaginal imaging is performed due to inadequate visualization transabdominally. FINDINGS: Uterus: The uterus is anteverted and measures 5.9 x 2.4 x 3.6 cm. The endometrial thickness is 3 mm. The uterus is smooth in contour and has normal myometrial echogenicity. No visible fibroid. There are indeterminate hyperechoic foci in the cervix, likely related with calcifications and of uncertain significance. Adnexa: Both ovaries are identified although the left ovary is only visualized in transabdominal images. There is normal color flow to the adnexa. There is no pelvic ascites or fluid collection. Right ovary measures 1.9 x 1.7 x 1.6 cm. Left ovary measures 2.8 x 1.1 x 1.3 cm. US/US pelvic and transvaginal IMPRESSION: No acute sonographic abnormalities. Specifically, no evidence of pelvic masses or ascites. Of note, evaluation was somewhat limited due to overlying shadowing from bowel gas and therefore if symptoms persists, consider correlation with a CT or MR.
== END 2021-06-09 08:32 | disposition home or self-care (01) ==
LOC: HO.HMGCX 08:31
PROVIDERS: PCP Internal Medicine; Visit Provider Internal Medicine
DX: R60.9 Edema, unspecified (principal); R19.00 Intra-abdominal and pelvic swelling, mass and lump, unspecified site; R18.8 Other ascites; I87.2 Venous insufficiency (chronic) (peripheral)
CPT/HCPCS: 76700; 76830; 76856

== ENCOUNTER → 2021-07-13 08:26 | Outpatient (REF) | payer MEDICARE, SELFPAY ==
--- NOTE | 2021-07-13 08:29 | CA_ITS ---
Transthoracic Echocardiogram Patient (Last, First, Middle): Aysha Wadsworth, Gender: Female Date of : 1945 Age: 76 Procedure Date: 07/13/2021 Procedure Type: Transthoracic Echocardiogram Location: OP Height: 157.48 cm Weight: 78.47 kg BSA: 1.80 m2 Heart Rate: bpm BP: 130 / 60 mmHg District [employer] Service Agent: Referring MD: Kayla Diego MD Symptoms: R60.9 - Edema, unspecified Study Quality: Fair ECG Rhythm: Sinus Conclusions: - The left ventricular systolic function is hyperdynamic. The calculated ejection fraction is 71% by biplane method. - There is mild tricuspid valve regurgitation. Findings Left Ventricle Normal left ventricular cavity size. There is mildly increased left ventricular wall thickness. The left ventricular systolic function is hyperdynamic. The calculated ejection fraction is 71% by biplane method. There is no evidence of regional wall motion abnormalities. Diastolic function is normal for age. Right Ventricle Normal right ventricular cavity size and systolic function. Atria Both atria are normal in size. Aortic Valve There is a normal trileaflet aortic valve. There is no aortic valve stenosis. There is no aortic valve regurgitation. Mitral Valve The mitral valve appears normal. There is no mitral valve regurgitation. There is no mitral valve stenosis. Pulmonic Valve The pulmonic valve was not well visualized. Tricuspid Valve Normal tricuspid valve structure. There is mild tricuspid valve regurgitation. The pulmonary artery systolic pressure is normal. Great Vessels The aortic annulus, sinuses of valsalva, and asc aorta are normal in size. Venous The inferior vena cava is normal in size and collapses greater than 50% with inspiration. Pericardium/Pleural There is no evidence of pericardial effusion. Prior Study Comparison No prior study available for comparison. Measurements 2D Linear Measurements IVSd: 1.24 0.6-0.9/0.6-1.0 cm LVIDd: 4.13 3.9-5.3/4.2-5.9 cm LVIDd Index: 2.29 2.4-3.2/2.2-3.1 cm/m2 LVIDs: 2.62 2.0-3.6 cm LVPWd: 1.21 0.7-1.1 cm Ao Root: 3.00 2.1-3.5 cm LA Diam: 3.30 2.7-3.8/3.0-4.0 cm LAIDs Index: 1.83 1.5-2.3 cm/m2 LV Mass: 223.02 67-162/88-224 g LV Mass Index: 123.90 43-95/49-115 g/m2 LVOT Diam: 2.10 3.0+(-)1.3 cm 2D Systolic Function EF 4C: 71.30 >55% EF 2C: 69.70 >55% EF BiP: 71.20 >55% Mitral Valve MV Pk E: 0.80 MV PK A: 0.99 MV Decel Time: 196.00 E/A: 0.80 E'Lateral: 10.40 E'Medial: 6.96 E/E' Med: 11.50 E/E' Lat: 7.70 PHT: 57.00 MVA PHT: 3.86 Decel Piatt: 4.09 Aortic Valve AoV Pk Quinton: 1.67 AoV Mn Quinton: 1.05 AoV VTI: 0.36 AoV Pk Grad: 11.00 Aov Mn Grad: 6.00 MARCIN Cont.VTI: 2.40 LVOT LVOT Pk [place]: 0.99 LVOT Mn [place]: 0.73 LVOT VTI: 0.25 LVOT Pk Grad: 4.00 LVOT Mn Grad: 2.00 LVOT Diam: 2.10 LVOT Area: 3.46 Diastolic Function MV Pk E: 0.80 MV Pk A: 0.99 E/A: 0.80 E'Medial: 6.96 E/E' Med: 11.50 E' Laterial: 10.40 E/E' Lat: 7.70 Right Ventricle TAPSE (mm): 27.00 TVS' Quinton: 13.00 Tricuspid Valve TR Pk Quinton: 2.30 TR Pk Grad: 21.00 Great Vessels Aorta Ao Root-2D: 3.00 2.0-3.7 cm Ao Asc: 3.20 2.1-3.4 cm Pulmonary Valve PV Pk [place]: 1.09 Peak PV Grad: 5.00 Updated in Other Vendor System with Status of Final Polo Del Real MD electronically signed on 07/13/2021 3:01:09 PM with status of Final
== END ==
LOC: HO.CARD 08:26
PROVIDERS: PCP Internal Medicine; Visit Provider Internal Medicine
DX: I10 Essential (primary) hypertension (principal); I60.9 Nontraumatic subarachnoid hemorrhage, unspecified
CPT/HCPCS: 93306

== ENCOUNTER → 2021-08-09 12:39 | Outpatient (BNVA) | payer MEDICARE, SELFPAY | PROVIDERS: PCP Internal Medicine; Visit Provider Nurse Practitioner Family | DX: K57.30 Diverticulosis of large intestine without perforation or abscess without bleeding (principal); R60.0 Localized edema; K21.9 Gastro-esophageal reflux disease without esophagitis | CPT/HCPCS: 99212 ==

== ENCOUNTER 2021-08-10 10:30 | Outpatient (REF) | payer MEDICARE, SELFPAY ==
[2021-08-10 11:46] LABS: Hematocrit 33.3 % (37.0-47.0); Hemoglobin 10.2 g/dl (12.0-16.0); Mean Corpuscular HGB Conc 30.6 g/dl (31.0-35.0); Mean Corpuscular Hemoglobin 25.8 pg (27.0-33.0); Mean Corpuscular Volume 84.3 fL (80.0-98.0); Mean Platelet Volume 8.7 fL (9.4-12.3); Platelet Count 238 X10*3/uL (160-400); Red Blood Count 3.95 X10*6/uL (4.20-5.50)
[2021-08-10 11:53] LABS: Estimated Average Glucose 180 mg/dL; Hemoglobin A1c % 7.9 %
[2021-08-10 12:33] LABS: Creatinine Urine 17.37 mg/dL; Microalbumin Urine < 5.0 mg/L
[2021-08-10 12:35] LABS: B Type Natriuretic Peptide 33 pg/mL (<100)
[2021-08-10 12:48] LABS: Alanine Aminotransferase 14 U/L (0-31); Albumin Level 4.2 g/dL (3.5-5.0); Alkaline Phosphatase 72 U/L (39-117); Anion Gap 12 (12-20); Aspartate Amino Transferase 16 U/L (5-31); Bilirubin Total 0.6 mg/dL (0.0-1.0); Blood Urea Nitrogen 14 mg/dL (9-16); Calcium 9.6 mg/dL (8.4-10.2); Carbon Dioxide 32 mmol/L (22-29); Chloride 100 mmol/L (96-108); Cholesterol 166 mg/dL; Estimated Glomerular Filt Rate 50; Glucose Fasting 149 mg/dL (60-99); HDL Cholesterol 55 mg/dL; LDL Cholesterol Calculated 89 mg/dl; Potassium 3.9 mmol/L (3.3-5.1); Sodium 140 mmol/L (135-145); Total Protein 7.3 g/dL (6.5-8.0); Triglycerides 114 mg/dL
== END 2021-08-10 10:31 | disposition home or self-care (01) ==
LOC: HO.HMGCLDS 10:30
PROVIDERS: Visit Provider Internal Medicine
DX: E11.9 Type 2 diabetes mellitus without complications (principal); E78.5 Hyperlipidemia, unspecified; I10 Essential (primary) hypertension; R60.9 Edema, unspecified
CPT/HCPCS: 36415; 80048; 80053; 80061; 82043; 83036; 83880; 85027

== ENCOUNTER 2021-08-25 12:48 | Outpatient (REF) | payer MEDICARE, SELFPAY ==
--- NOTE | ~2021-08-25 | XR_ITS ---
EXAMINATION: XR CHEST CLINICAL INFORMATION: Shortness of breath COMPARISON: None TECHNIQUE: 2 views of the chest were obtained. FINDINGS: The lungs are well-expanded and clear. The heart size and progress clarities normal. There is mild dextroscoliosis. There is mild dextroscoliosis of dorsal spine. No lytic process. XR/XR chest 2V IMPRESSION: Unremarkable chest exam.
== END 2021-08-25 12:49 | disposition home or self-care (01) ==
LOC: HO.HMGCX 12:48
PROVIDERS: PCP Internal Medicine; Visit Provider Internal Medicine
DX: R06.02 Shortness of breath (principal)
CPT/HCPCS: 71046

== ENCOUNTER 2021-09-02 10:51 | Outpatient (REF) | payer MEDICARE, SELFPAY ==
[2021-09-02 14:09] LABS: Anion Gap 15 (12-20); Blood Urea Nitrogen 17 mg/dL (9-16); Calcium 10.5 mg/dL (8.4-10.2); Carbon Dioxide 33 mmol/L (22-29); Chloride 98 mmol/L (96-108); Estimated Glomerular Filt Rate 47; Glucose Random 107 mg/dL (60-115); Iron 46 mcg/dL (30-160); Lactate Dehydrogenase 217 U/L (122-220); Percent Iron Saturation 13 % (15-50); Potassium 3.8 mmol/L (3.3-5.1); Sodium 142 mmol/L (135-145); Total Iron Binding Capacity 368 mcg/dL (228-428); Unsaturated Iron Binding 322 ug/dL
[2021-09-02 14:20] LABS: TSH reflex Free T4 2.93 uIU/mL (0.32-4.0)
[2021-09-02 14:35] LABS: B Type Natriuretic Peptide 36 pg/mL (<100); Vitamin B12 360 pg/mL (200-900)
== END 2021-09-02 10:52 | disposition home or self-care (01) ==
LOC: HO.HMGCLDS 10:51
PROVIDERS: PCP Internal Medicine; Visit Provider Internal Medicine
DX: R60.9 Edema, unspecified (principal); D64.9 Anemia, unspecified; R53.83 Other fatigue
CPT/HCPCS: 36415; 80048; 82607; 82746; 83540; 83615; 83880; 84443

== ENCOUNTER 2021-09-30 06:25 | Outpatient (REF) | payer MEDICARE, SELFPAY ==
[2021-09-30 11:33] LABS: Appearance Urine CLEAR; Color Urine STRAW; Glucose Urine UA NEG (NEG); Leukocyte Esterase Urine NEG (NEG); Nitrite Urine NEG (NEG); PH 6.5 (5.0-8.0); Urine Blood NEG (NEG); Urine Ketones NEG (NEG); Urine Protein NEG (NEG-TRACE)
[2021-09-30 12:19] LABS: Squamous Epithelial Cell Urine 1+ /LPF
[2021-09-30 12:20] LABS: Bacteria Urine 1+ /LPF; RBC Urine 0 /HPF (0); Renal Epithelial Cells Urine TRACE /LPF; WBC Urine 0-2 /HPF (0-4)
== END 2021-09-30 06:26 | disposition home or self-care (01) ==
LOC: HO.HMGCLDS 06:25
PROVIDERS: Visit Provider Internal Medicine
DX: I10 Essential (primary) hypertension (principal)
CPT/HCPCS: 81001

== ENCOUNTER 2021-10-01 09:32 | Outpatient (REF) | payer MEDICARE, SELFPAY ==
[2021-10-01 11:36] LABS: Hematocrit 32.2 % (37.0-47.0); Hemoglobin 10.1 g/dl (12.0-16.0); Mean Corpuscular HGB Conc 31.4 g/dl (31.0-35.0); Mean Corpuscular Hemoglobin 26.4 pg (27.0-33.0); Mean Corpuscular Volume 84.1 fL (80.0-98.0); Mean Platelet Volume 9.1 fL (9.4-12.3); Platelet Count 248 X10*3/uL (160-400); Red Blood Count 3.83 X10*6/uL (4.20-5.50); Red Cell Distribution Width 14.4 % (11.0-16.0); White Blood Count 6.4 X10*3/uL (4.8-10.8)
[2021-10-01 12:00] LABS: Anion Gap 12 (12-20); Blood Urea Nitrogen 18 mg/dL (9-16); Carbon Dioxide 35 mmol/L (22-29); Chloride 99 mmol/L (96-108); Estimated Glomerular Filt Rate 39; Glucose Random 268 mg/dL (60-115); Potassium 3.5 mmol/L (3.3-5.1); Sodium 142 mmol/L (135-145)
[2021-10-05 11:57] LABS: IgA 212 mg/dL (70-320); IgG 1290 mg/dL (600-1540); IgM 151 mg/dL (50-300)
== END 2021-10-01 09:33 | disposition home or self-care (01) ==
LOC: HO.HMGCLDS 09:32
PROVIDERS: PCP Internal Medicine; Visit Provider Internal Medicine
DX: R60.9 Edema, unspecified (principal); D64.9 Anemia, unspecified
CPT/HCPCS: 36415; 80048; 82784; 85027; 86334

== ENCOUNTER 2021-10-13 07:36 | Outpatient (REF) | payer MEDICARE, SELFPAY ==
[2021-10-13 11:30] LABS: Hematocrit 31.7 % (37.0-47.0); Hemoglobin 9.9 g/dl (12.0-16.0); Mean Corpuscular HGB Conc 31.2 g/dl (31.0-35.0); Mean Corpuscular Volume 83.2 fL (80.0-98.0); Mean Platelet Volume 9.1 fL (9.4-12.3); Platelet Count 291 X10*3/uL (160-400); Red Blood Count 3.81 X10*6/uL (4.20-5.50); Red Cell Distribution Width 14.1 % (11.0-16.0); White Blood Count 7.3 X10*3/uL (4.8-10.8)
[2021-10-13 11:46] LABS: Anion Gap 16 (12-20); Blood Urea Nitrogen 39 mg/dL (9-16); Calcium 10.3 mg/dL (8.4-10.2); Carbon Dioxide 36 mmol/L (22-29); Chloride 89 mmol/L (96-108); Estimated Glomerular Filt Rate 29; Glucose Random 181 mg/dL (60-115); Potassium 3.1 mmol/L (3.3-5.1); Sodium 138 mmol/L (135-145)
== END 2021-10-13 07:37 | disposition home or self-care (01) ==
LOC: HO.HMGCLDS 07:36
PROVIDERS: Visit Provider Internal Medicine
DX: R60.9 Edema, unspecified (principal); D64.9 Anemia, unspecified
CPT/HCPCS: 36415; 80048; 85027

== ENCOUNTER 2021-10-20 10:27 | Outpatient (REF) | payer MEDICARE, SELFPAY ==
[2021-10-20 11:28] LABS: MANUAL DIFF FLAG NO
[2021-10-20 11:44] LABS: Basophils Percent Auto 0.4 % (0-2); Eosinophils Absolute Auto 0.2 X10*3/uL (0.0-0.4); Eosinophils Percent Auto 2.8 % (0-4); Hemoglobin 9.4 g/dl (12.0-16.0); Imm Gran Abs Auto 0.04 X10*3/uL (0.00-0.03); Imm Gran Pct Auto 0.5 % (0.0-0.4); Lymphocytes Absolute Auto 2.7 X10*3/uL (1.2-4.9); Lymphocytes Percent Auto 32.4 % (20-40); Mean Corpuscular HGB Conc 31.3 g/dl (31.0-35.0); Mean Corpuscular Volume 83.1 fL (80.0-98.0); Monocytes Absolute Auto 0.6 X10*3/uL (0.1-1.2); Monocytes Percent Auto 7.2 % (2-11); Neutrophils Absolute Auto 4.7 x10*3/uL (2.0-8.3); Neutrophils Percent Auto 56.7 % (45-73); Platelet Count 248 X10*3/uL (160-400); Red Blood Count 3.61 X10*6/uL (4.20-5.50); Red Cell Distribution Width 14.2 % (11.0-16.0); White Blood Count 8.3 X10*3/uL (4.8-10.8)
[2021-10-20 11:59] LABS: Estimated Average Glucose 174 mg/dL; Hemoglobin A1c % 7.7 %
[2021-10-20 12:13] LABS: Alanine Aminotransferase 16 U/L (0-31); Albumin Level 4.4 g/dL (3.5-5.0); Alkaline Phosphatase 65 U/L (39-117); Anion Gap 16 (12-20); Aspartate Amino Transferase 18 U/L (5-31); Bilirubin Total 0.4 mg/dL (0.0-1.0); Blood Urea Nitrogen 35 mg/dL (9-16); Calcium 10.6 mg/dL (8.4-10.2); Carbon Dioxide 35 mmol/L (22-29); Chloride 92 mmol/L (96-108); Cholesterol 173 mg/dL; Estimated Glomerular Filt Rate 32; Glucose Fasting 102 mg/dL (60-99); HDL Cholesterol 53 mg/dL; LDL Cholesterol Calculated 82 mg/dl; Magnesium 1.9 mg/dL (1.6-2.6); Potassium 3.4 mmol/L (3.3-5.1); Sodium 140 mmol/L (135-145); Total Protein 7.7 g/dL (6.5-8.0); Triglycerides 190 mg/dL
== END 2021-10-20 10:28 | disposition home or self-care (01) ==
LOC: HO.HMGCLDS 10:27
PROVIDERS: PCP Internal Medicine; Visit Provider Internal Medicine
DX: I12.9 Hypertensive chronic kidney disease with stage 1 through stage 4 chronic kidney disease, or unspecified chronic kidney disease (principal); N18.30 Chronic kidney disease, stage 3 unspecified; E11.22 Type 2 diabetes mellitus with diabetic chronic kidney disease; E87.6 Hypokalemia; E78.5 Hyperlipidemia, unspecified
CPT/HCPCS: 36415; 80048; 80053; 80061; 83036; 83735; 85025

== ENCOUNTER → 2021-10-21 09:30 | Outpatient (BNVA) | payer MEDICARE, SELFPAY | PROVIDERS: PCP Internal Medicine; Visit Provider Surgery Vascular Surgery | DX: I83.11 Varicose veins of right lower extremity with inflammation (principal) | CPT/HCPCS: 99202 ==

== ENCOUNTER 2021-12-06 07:53 | Outpatient (REF) | payer MEDICARE, SELFPAY ==
--- NOTE | ~2021-12-06 | US_ITS ---
EXAMINATION: US VENOUS DUPLEX LOWER EXTREMITY, BILATERAL CLINICAL INFORMATION: Lower extremity varicose veins. COMPARISON: Bilateral lower extremity DVT ultrasound on 05/07/2021. TECHNIQUE: Color-flow triplex imaging and compression Doppler were performed to evaluate both the deep and the superficial systems bilaterally. To evaluate the superficial system, the examination was performed in the upright position. Color-flow Doppler ultrasound and compression ultrasound were utilized. In addition, maneuvers were utilized to demonstrate reflux. FINDINGS: SUPERFICIAL ULTRASOUND WITH DOPPLER OF RIGHT LOWER EXTREMITY GREAT SAPHENOUS VEIN: Saphenofemoral Junction: 9 mm Maximum Diameter: 9 mm Minimum Diameter: 2 mm Reflux: There is reflux above the knee measuring up to 2.9 seconds and reflux from below the knee to the ankle measuring up to 1.1 seconds. DUPLICATED MEDIAL GREAT SAPHENOUS VEIN: Maximum Diameter: None imaged Reflux: NA DUPLICATED LATERAL GREAT SAPHENOUS VEIN: Diameter: 4 mm at the junction Reflux: None SMALL SAPHENOUS VEIN: Proximal Calf: 3 mm Distal Calf: 2 mm Reflux: No evidence of reflux VEIN OF GIACOMINI: None imaged PERFORATORS: Location: Proximal calf measuring 3 mm Reflux: None VARICOSITIES: Location: Mid thigh, distal thigh and distal calf measuring between 2 mm and 4 mm. Reflux: All varicosities demonstrate reflux greater than 0.9 seconds. DEEP VENOUS ULTRASOUND OF THE RIGHT LOWER EXTREMITY: Common Femoral Vein: Compressible, normal respiratory variation and augmented flow. Femoral Vein: Compressible, normal color flow and augmentation. Popliteal Vein: Compressible, normal augmentation. Deep Reflux: There is no evidence of reflux in the deep system in either the common femoral vein or the popliteal vein. Skinner's Cyst: There is no evidence of a Skinner's cyst. SUPERFICIAL ULTRASOUND WITH DOPPLER OF LEFT LOWER EXTREMITY GREAT SAPHENOUS VEIN: Saphenofemoral Junction: 8 mm Maximum Diameter: 8 mm Minimum Diameter: 2 mm Reflux: There is segmental reflux below the knee measuring up to 3 seconds. Additional: The great saphenous vein is not seen at the mid calf. DUPLICATED MEDIAL GREAT SAPHENOUS VEIN: Max Diameter: None imaged Reflux: NA DUPLICATED LATERAL GREAT SAPHENOUS VEIN: Diameter: None imaged Reflux: NA SMALL SAPHENOUS VEIN: Proximal Calf: 3 mm Distal Calf: 2 mm Reflux: There is greater than 2.7 seconds of reflux at the proximal calf. VEIN OF GIACOMINI: None Imaged PERFORATORS: Location: Distal calf measuring 6 mm Reflux: None VARICOSITIES: Location: Proximal calf measuring 4 mm Reflux: Greater than 1.9 seconds of reflux DEEP VENOUS ULTRASOUND OF THE LEFT LOWER EXTREMITY: Common Femoral Vein: Compressible, normal respiratory variation and augmented flow. Femoral Vein: Compressible, normal color flow and augmentation. Popliteal Vein: Compressible, normal augmentation. Deep Reflux: There is no evidence of reflux in the deep system in either the common femoral vein or the popliteal vein. Skinner's Cyst: There is no evidence of a Skinner's cyst. Note is made of minimally enlarged bilateral inguinal lymph nodes. US/US venous duplex LE BI IMPRESSION: 1. Segmental reflux involving the right great saphenous vein above the knee and from the mid calf to the ankle. 2. Segmental reflux involving the left great saphenous vein below the knee. 3. Left small saphenous venous insufficiency beginning at the proximal calf. 4. Bilateral refluxing varicosities. 5. No evidence of DVT or deep venous insufficiency. 6. Mildly enlarged bilateral inguinal lymph nodes.
== END 2021-12-06 07:54 | disposition home or self-care (01) ==
LOC: HO.US 07:53
PROVIDERS: Visit Provider Surgery Vascular Surgery
DX: I83.11 Varicose veins of right lower extremity with inflammation (principal)
CPT/HCPCS: 93970

== ENCOUNTER → 2021-12-09 08:43 | Outpatient (BNVA) | payer MEDICARE, SELFPAY | PROVIDERS: PCP Internal Medicine; Visit Provider Surgery Vascular Surgery | DX: I83.11 Varicose veins of right lower extremity with inflammation (principal) | CPT/HCPCS: 99212 ==

== ENCOUNTER 2021-12-16 08:06 | Outpatient (REF) | payer MEDICARE, SELFPAY ==
[2021-12-16 11:27] LABS: MANUAL DIFF FLAG NO
[2021-12-16 11:32] LABS: Basophils Percent Auto 0.3 % (0-2); Eosinophils Absolute Auto 0.2 X10*3/uL (0.0-0.4); Eosinophils Percent Auto 3.1 % (0-4); Hematocrit 28.7 % (37.0-47.0); Hemoglobin 8.9 g/dl (12.0-16.0); Imm Gran Abs Auto 0.04 X10*3/uL (0.00-0.03); Imm Gran Pct Auto 0.5 % (0.0-0.4); Lymphocytes Absolute Auto 2.2 X10*3/uL (1.2-4.9); Mean Corpuscular Hemoglobin 26.3 pg (27.0-33.0); Mean Corpuscular Volume 84.9 fL (80.0-98.0); Monocytes Absolute Auto 0.5 X10*3/uL (0.1-1.2); Neutrophils Absolute Auto 4.6 x10*3/uL (2.0-8.3); Neutrophils Percent Auto 60.1 % (45-73); Platelet Count 248 X10*3/uL (160-400); Red Blood Count 3.38 X10*6/uL (4.20-5.50); Red Cell Distribution Width 14.6 % (11.0-16.0); White Blood Count 7.6 X10*3/uL (4.8-10.8)
[2021-12-16 11:39] LABS: Estimated Average Glucose 146 mg/dL; Hemoglobin A1c % 6.7 %
[2021-12-16 12:07] LABS: Alanine Aminotransferase 16 U/L (0-31); Albumin Level 4.5 g/dL (3.5-5.0); Alkaline Phosphatase 64 U/L (39-117); Anion Gap 14 (12-20); Aspartate Amino Transferase 18 U/L (5-31); Bilirubin Total 0.7 mg/dL (0.0-1.0); Blood Urea Nitrogen 19 mg/dL (9-16); Calcium 9.6 mg/dL (8.4-10.2); Carbon Dioxide 30 mmol/L (22-29); Chloride 101 mmol/L (96-108); Cholesterol 176 mg/dL; Estimated Glomerular Filt Rate 35; Glucose Fasting 127 mg/dL (60-99); HDL Cholesterol 51 mg/dL; LDL Cholesterol Calculated 102 mg/dl; Potassium 3.9 mmol/L (3.3-5.1); Sodium 141 mmol/L (135-145); Total Protein 7.6 g/dL (6.5-8.0); Triglycerides 119 mg/dL
[2021-12-16 12:25] LABS: Creatinine Urine 35.81 mg/dL; Microalbumin Urine < 5.0 mg/L
== END 2021-12-16 08:07 | disposition home or self-care (01) ==
LOC: HO.HMGCLDS 08:06
PROVIDERS: PCP Internal Medicine; Visit Provider Internal Medicine
DX: N18.30 Chronic kidney disease, stage 3 unspecified (principal); E78.5 Hyperlipidemia, unspecified; E11.9 Type 2 diabetes mellitus without complications
CPT/HCPCS: 36415; 80053; 80061; 82043; 83036; 85025

== ENCOUNTER 2021-12-17 11:51 | Outpatient (REF) | payer MEDICARE, SELFPAY ==
[2021-12-17 14:01] LABS: Immature Retic Fraction 14.6 % (3.0-15.9); Retic HGB Equivalent 29.6 pg (30.0-35.0); Reticulocyte Percent 1.8 % (0.5-1.8); Reticulocytes Absolute 0.061 X10*6/uL (0.026-0.095)
[2021-12-17 14:12] LABS: Iron 34 mcg/dL (30-160); Percent Iron Saturation 10 % (15-50); Total Iron Binding Capacity 336 mcg/dL (228-428); Unsaturated Iron Binding 302 ug/dL
[2021-12-17 14:50] LABS: Folate 14.5 ng/mL (> or = 4.0); Vitamin B12 312 pg/mL (200-900)
[2021-12-20 14:32] LABS: Haptoglobin 178 mg/dL (43-212)
== END 2021-12-17 11:52 | disposition home or self-care (01) ==
LOC: HO.HMGCLDS 11:51
PROVIDERS: PCP Internal Medicine; Visit Provider Internal Medicine
DX: D64.9 Anemia, unspecified (principal)
CPT/HCPCS: 36415; 82607; 82746; 83010; 83540; 85045

== ENCOUNTER 2022-01-18 07:12 | Outpatient (REF) | payer MEDICARE, SELFPAY ==
[2022-01-18 11:32] LABS: Baso%MD 0.5 %; Eos%MD 4.6 %; Hematocrit 28.8 % (37.0-47.0); Hemoglobin 8.9 g/dl (12.0-16.0); IG%MD 0.6 %; Lymph%MD 36.5 %; Mean Corpuscular HGB Conc 30.9 g/dl (31.0-35.0); Mean Corpuscular Hemoglobin 26.2 pg (27.0-33.0); Mean Corpuscular Volume 84.7 fL (80.0-98.0); Mean Platelet Volume 9.1 fL (9.4-12.3); Mono%MD 7.1 %; Neut%MD 50.7 %; Platelet Count 234 X10*3/uL (160-400); Red Cell Distribution Width 14.2 % (11.0-16.0); White Blood Count 6.5 X10*3/uL (4.8-10.8)
[2022-01-18 11:47] LABS: Alanine Aminotransferase 15 U/L (0-31); Albumin Level 4.3 g/dL (3.5-5.0); Alkaline Phosphatase 53 U/L (39-117); Anion Gap 17 (12-20); Aspartate Amino Transferase 18 U/L (5-31); Bilirubin Total 0.5 mg/dL (0.0-1.0); Blood Urea Nitrogen 19 mg/dL (9-16); Calcium 9.6 mg/dL (8.4-10.2); Carbon Dioxide 29 mmol/L (22-29); Chloride 101 mmol/L (96-108); Estimated Glomerular Filt Rate 37; Glucose Fasting 124 mg/dL (60-99); Potassium 3.9 mmol/L (3.3-5.1); Sodium 143 mmol/L (135-145); Total Protein 7.2 g/dL (6.5-8.0)
[2022-01-18 12:10] LABS: Eosinophils Absolute Manual 0.2 X10*3/uL (0.0-0.4); Eosinophils Percent Manual 3 % (0-4); Lymphocytes Absolute Manual 2.6 X10*3/uL (1.2-4.9); Lymphocytes Percent Manual 40 % (20-40); Monocytes Absolute Manual 0.1 X10*3/uL (0.1-1.2); Monocytes Percent Manual 1 % (2-11); Neutrophils Percent Manual 56 % (45-73)
[2022-01-18 12:14] LABS: Hypochromasia 1+ (5-14) /OIF; Microcytosis 1+ (5-14) /OIF; Platelet Estimate NORMAL (NORMAL); Platelet Morphology Comment NORMAL; RBC Morphology NOTED
[2022-01-18 12:44] LABS: Band Neutrophils Percent 0 % (3-5); Neutrophils Absolute Manual 3.6 X10*3/uL (2.0-8.3)
== END 2022-01-18 07:13 | disposition home or self-care (01) ==
LOC: HO.HMGCLDS 07:12
PROVIDERS: PCP Internal Medicine; Visit Provider Internal Medicine
DX: N18.30 Chronic kidney disease, stage 3 unspecified (principal)
CPT/HCPCS: 36415; 80053; 85007; 85027

== ENCOUNTER 2022-03-15 11:30 | Outpatient (REF) | payer MEDICARE, SELFPAY ==
[2022-03-15 14:00] LABS: MANUAL DIFF FLAG NO
[2022-03-15 14:09] LABS: Basophils Percent Auto 0.4 % (0-2); Eosinophils Absolute Auto 0.2 X10*3/uL (0.0-0.4); Eosinophils Percent Auto 2.5 % (0-4); Hematocrit 31.3 % (37.0-47.0); Hemoglobin 9.9 g/dl (12.0-16.0); Imm Gran Abs Auto 0.04 X10*3/uL (0.00-0.03); Imm Gran Pct Auto 0.5 % (0.0-0.4); Lymphocytes Absolute Auto 3.1 X10*3/uL (1.2-4.9); Lymphocytes Percent Auto 38.9 % (20-40); Mean Corpuscular HGB Conc 31.6 g/dl (31.0-35.0); Mean Corpuscular Hemoglobin 26.3 pg (27.0-33.0); Mean Corpuscular Volume 83.2 fL (80.0-98.0); Mean Platelet Volume 9.1 fL (9.4-12.3); Monocytes Absolute Auto 0.5 X10*3/uL (0.1-1.2); Monocytes Percent Auto 6.7 % (2-11); Platelet Count 253 X10*3/uL (160-400); Red Blood Count 3.76 X10*6/uL (4.20-5.50); Red Cell Distribution Width 14.3 % (11.0-16.0); White Blood Count 7.9 X10*3/uL (4.8-10.8)
[2022-03-15 14:18] LABS: Estimated Average Glucose 146 mg/dL; Hemoglobin A1c % 6.7 %
[2022-03-15 14:22] LABS: Alanine Aminotransferase 19 U/L (0-31); Albumin Level 4.7 g/dL (3.5-5.0); Alkaline Phosphatase 59 U/L (39-117); Anion Gap 16 (12-20); Aspartate Amino Transferase 21 U/L (5-31); Bilirubin Total 0.6 mg/dL (0.0-1.0); Blood Urea Nitrogen 26 mg/dL (9-16); Carbon Dioxide 30 mmol/L (22-29); Chloride 97 mmol/L (96-108); Cholesterol 175 mg/dL; Estimated Glomerular Filt Rate 35; Glucose Fasting 98 mg/dL (60-99); HDL Cholesterol 51 mg/dL; LDL Cholesterol Calculated 93 mg/dl; Potassium 3.8 mmol/L (3.3-5.1); Sodium 139 mmol/L (135-145); Total Protein 7.9 g/dL (6.5-8.0); Triglycerides 158 mg/dL
[2022-03-15 15:15] LABS: Creatinine Urine 127.58 mg/dL
== END 2022-03-15 11:31 | disposition home or self-care (01) ==
LOC: HO.HMGCLDS 11:30
PROVIDERS: PCP Internal Medicine; Visit Provider Internal Medicine
DX: E78.5 Hyperlipidemia, unspecified (principal); I12.9 Hypertensive chronic kidney disease with stage 1 through stage 4 chronic kidney disease, or unspecified chronic kidney disease; E11.22 Type 2 diabetes mellitus with diabetic chronic kidney disease; N18.30 Chronic kidney disease, stage 3 unspecified
CPT/HCPCS: 36415; 80053; 80061; 82043; 83036; 85025

== ENCOUNTER 2022-03-31 15:16 | Outpatient (REF) | payer MEDICARE, SELFPAY ==
[2022-03-31 17:12] LABS: Anion Gap 17 (12-20); Blood Urea Nitrogen 21 mg/dL (9-16); Calcium 9.5 mg/dL (8.4-10.2); Carbon Dioxide 30 mmol/L (22-29); Chloride 101 mmol/L (96-108); Estimated Glomerular Filt Rate 36; Glucose Random 157 mg/dL (60-115); Iron 39 mcg/dL (30-160); Percent Iron Saturation 12 % (15-50); Potassium 3.9 mmol/L (3.3-5.1); Sodium 144 mmol/L (135-145); Total Iron Binding Capacity 338 mcg/dL (228-428); Unsaturated Iron Binding 299 ug/dL
[2022-03-31 17:32] LABS: TSH reflex Free T4 1.86 uIU/mL (0.32-4.0)
== END 2022-03-31 15:17 | disposition home or self-care (01) ==
LOC: HO.HMGCLDS 15:16
PROVIDERS: PCP Internal Medicine; Visit Provider Internal Medicine
DX: N18.30 Chronic kidney disease, stage 3 unspecified (principal); I87.2 Venous insufficiency (chronic) (peripheral); D64.9 Anemia, unspecified
CPT/HCPCS: 36415; 80048; 83540; 84443

== ENCOUNTER 2022-04-13 09:51 | Outpatient (REF) | payer MEDICARE, SELFPAY ==
--- NOTE | ~2022-04-13 | US_ITS ---
EXAMINATION: US RETROPERITONEAL LIMITED (RENAL ONLY) CLINICAL INFORMATION: Chronic kidney disease, stage III, unspecified. COMPARISON: Ultrasound abdomen complete 06/09/2021. TECHNIQUE: Real-time imaging of the kidneys. FINDINGS: RIGHT KIDNEY: 9.3 x 4.2 x 4.9 cm (SAG x AP x TRV). The kidney is normal in size, contour, and echogenicity. Renal cortical thickness is normal. No calculi or focal parenchymal lesions. No hydronephrosis. LEFT KIDNEY: 9.6 x 4.4 x 4.7 cm (SAG x AP x TRV). The kidney is normal in size, contour, and echogenicity. Renal cortical thickness is normal. No calculi or focal parenchymal lesions. No hydronephrosis. US/US renal BI IMPRESSION: Normal kidneys bilaterally.
--- NOTE | ~2022-04-13 | US_ITS ---
EXAMINATION: US THYROID CLINICAL INFORMATION: Nontoxic goiter, unspecified. COMPARISON: None TECHNIQUE: Linear transducer grayscale and color Doppler examination with attention to the region of the thyroid. FINDINGS: SIZE: Measurements of the thyroid lobes and nodules are given in sagittal, anteroposterior and transverse dimensions respectively. Right Thyroid Lobe: 4.3 x 1.6 x 1.2 cm, volume 4.4 mL. Parenchyma: The gland echotexture is homogeneous. Thyroid vascularity is increased. Left Thyroid Lobe: 5.0 x 1.4 x 1.4 cm, volume 5.4 mL. Parenchyma: The gland echotexture is homogeneous. Thyroid vascularity is increased. Isthmus: 0.5 cm in maximum AP dimension. No focal thyroid nodule is seen. NODES: No lymphadenopathy is seen in the tissue surrounding the thyroid gland. US/US thyroid IMPRESSION: Both lobes of the thyroid are heterogeneous and hypervascular consistent with thyroiditis. No thyroid nodules or masses seen.
== END 2022-04-13 09:52 | disposition home or self-care (01) ==
LOC: HO.HMGCX 09:51
PROVIDERS: PCP Internal Medicine; Visit Provider Internal Medicine
DX: E04.9 Nontoxic goiter, unspecified (principal); N18.30 Chronic kidney disease, stage 3 unspecified
CPT/HCPCS: 76536; 76775

== ENCOUNTER 2022-05-31 11:15 | Outpatient (REF) | payer MEDICARE, SELFPAY ==
[2022-05-31 12:39] LABS: Influenza A PCR NEGATIVE (Negative); Influenza B PCR NEGATIVE (Negative); Resp Syncy Virus RNA Qual PCR NEGATIVE (Negative); SARS COV2 PCR INHOUSE POSITIVE (Negative)
== END 2022-05-31 11:16 | disposition home or self-care (01) ==
LOC: HO.LNP 11:15
PROVIDERS: Visit Provider Nurse Practitioner Family
DX: R09.89 Other specified symptoms and signs involving the circulatory and respiratory systems (principal); Z20.822 Contact with and (suspected) exposure to COVID-19
CPT/HCPCS: 0241U

== ENCOUNTER 2022-06-20 08:37 | Outpatient (REF) | payer MEDICARE, SELFPAY ==
[2022-06-20 11:16] LABS: MANUAL DIFF FLAG NO
[2022-06-20 11:30] LABS: Basophils Percent Auto 0.6 % (0-2); Eosinophils Absolute Auto 0.3 X10*3/uL (0.0-0.4); Eosinophils Percent Auto 4.6 % (0-4); Hematocrit 34.6 % (37.0-47.0); Hemoglobin 10.4 g/dl (12.0-16.0); Imm Gran Abs Auto 0.02 X10*3/uL (0.00-0.03); Imm Gran Pct Auto 0.3 % (0.0-0.4); Lymphocytes Absolute Auto 2.3 X10*3/uL (1.2-4.9); Lymphocytes Percent Auto 35.7 % (20-40); Mean Corpuscular HGB Conc 30.1 g/dl (31.0-35.0); Mean Corpuscular Hemoglobin 25.6 pg (27.0-33.0); Mean Corpuscular Volume 85.2 fL (80.0-98.0); Monocytes Absolute Auto 0.4 X10*3/uL (0.1-1.2); Neutrophils Absolute Auto 3.4 x10*3/uL (2.0-8.3); Neutrophils Percent Auto 52.8 % (45-73); Platelet Count 269 X10*3/uL (160-400); Red Blood Count 4.06 X10*6/uL (4.20-5.50); Red Cell Distribution Width 14.5 % (11.0-16.0); White Blood Count 6.5 X10*3/uL (4.8-10.8)
[2022-06-20 11:41] LABS: Estimated Average Glucose 163 mg/dL; Hemoglobin A1c % 7.3 %
[2022-06-20 11:43] LABS: Appearance Urine Clear; Color Urine Yellow; Glucose Urine UA Negative (Negative); Leukocyte Esterase Urine Trace (Negative); Nitrite Urine Negative (Negative); PH 5.5 (5.0-9.0); Specific Gravity - Urine 1.015 (1.005-1.025); UMIC TRIGGER UA YES; Urine Blood Negative (Negative); Urine Ketones Negative (Negative); Urine Protein Negative (Neg-Trace)
[2022-06-20 11:45] LABS: Alanine Aminotransferase 12 U/L (0-31); Albumin Level 4.4 g/dL (3.5-5.0); Alkaline Phosphatase 57 U/L (39-117); Anion Gap 13 (12-20); Aspartate Amino Transferase 18 U/L (5-31); Bilirubin Total 0.5 mg/dL (0.0-1.0); Blood Urea Nitrogen 19 mg/dL (9-16); Calcium 9.5 mg/dL (8.4-10.2); Carbon Dioxide 28 mmol/L (22-29); Chloride 103 mmol/L (96-108); Estimated Glomerular Filt Rate 36; Glucose Fasting 130 mg/dL (60-99); Potassium 4.2 mmol/L (3.3-5.1); Sodium 140 mmol/L (135-145); Total Protein 7.5 g/dL (6.5-8.0)
[2022-06-20 11:47] LABS: Bacteria Urine None Seen (None Seen); Hyaline Casts Urine 0-2 /LPF (0-2); RBC Urine 0-2 /HPF (0-2); Squamous Epithelial Cell Urine 0-2 /HPF (0-2)
[2022-06-20 12:16] LABS: Creatinine Urine 79.55 mg/dL; Microalbum/Creatinine Ratio Ur 6.2 ug/mg cr
== END 2022-06-20 08:38 | disposition home or self-care (01) ==
LOC: HO.HMGCLDS 08:37
PROVIDERS: PCP Internal Medicine; Visit Provider Internal Medicine
DX: R53.83 Other fatigue (principal); E11.9 Type 2 diabetes mellitus without complications; E78.5 Hyperlipidemia, unspecified
CPT/HCPCS: 36415; 80053; 81001; 82043; 83036; 85025

== ENCOUNTER 2022-09-16 10:28 | Outpatient (REF) | payer MEDICARE, SELFPAY ==
[2022-09-16 11:30] LABS: MANUAL DIFF FLAG NO
[2022-09-16 11:53] LABS: Basophils Absolute Auto 0.1 X10*3/uL (0.0-0.2); Basophils Percent Auto 0.6 % (0-2); Eosinophils Absolute Auto 0.3 X10*3/uL (0.0-0.4); Eosinophils Percent Auto 3.8 % (0-4); Hematocrit 37.3 % (37.0-47.0); Hemoglobin 11.5 g/dl (12.0-16.0); Imm Gran Abs Auto 0.02 X10*3/uL (0.00-0.03); Imm Gran Pct Auto 0.2 % (0.0-0.4); Lymphocytes Absolute Auto 2.8 X10*3/uL (1.2-4.9); Lymphocytes Percent Auto 33.9 % (20-40); Mean Corpuscular HGB Conc 30.8 g/dl (31.0-35.0); Mean Corpuscular Hemoglobin 25.6 pg (27.0-33.0); Mean Corpuscular Volume 82.9 fL (80.0-98.0); Monocytes Absolute Auto 0.5 X10*3/uL (0.1-1.2); Monocytes Percent Auto 6.3 % (2-11); Neutrophils Absolute Auto 4.5 x10*3/uL (2.0-8.3); Neutrophils Percent Auto 55.2 % (45-73); Platelet Count 246 X10*3/uL (160-400); Red Cell Distribution Width 14.3 % (11.0-16.0); White Blood Count 8.2 X10*3/uL (4.8-10.8)
[2022-09-16 12:06] LABS: Estimated Average Glucose 140 mg/dL; Hemoglobin A1c % 6.5 %
[2022-09-16 12:23] LABS: Alanine Aminotransferase 12 U/L (0-31); Albumin Level 4.5 g/dL (3.5-5.0); Alkaline Phosphatase 66 U/L (39-117); Anion Gap 14 (12-20); Aspartate Amino Transferase 17 U/L (5-31); Bilirubin Total 0.6 mg/dL (0.0-1.0); Blood Urea Nitrogen 16 mg/dL (9-16); Calcium 9.5 mg/dL (8.4-10.2); Carbon Dioxide 30 mmol/L (22-29); Chloride 104 mmol/L (96-108); Cholesterol 184 mg/dL; Estimated Glomerular Filt Rate 43; Glucose Fasting 96 mg/dL (60-99); HDL Cholesterol 57 mg/dL; LDL Cholesterol Calculated 104 mg/dl; Potassium 3.6 mmol/L (3.3-5.1); Sodium 144 mmol/L (135-145); Total Protein 7.4 g/dL (6.5-8.0); Triglycerides 117 mg/dL
[2022-09-16 12:40] LABS: Creatinine Urine 23.05 mg/dL; Microalbumin Urine < 5.0 mg/L
== END 2022-09-16 10:29 | disposition home or self-care (01) ==
LOC: HO.HMGCLDS 10:28
PROVIDERS: PCP Internal Medicine; Visit Provider Internal Medicine
DX: E78.5 Hyperlipidemia, unspecified (principal); D64.9 Anemia, unspecified; I12.9 Hypertensive chronic kidney disease with stage 1 through stage 4 chronic kidney disease, or unspecified chronic kidney disease; E11.22 Type 2 diabetes mellitus with diabetic chronic kidney disease; N18.30 Chronic kidney disease, stage 3 unspecified
CPT/HCPCS: 36415; 80053; 80061; 82043; 83036; 85025

== ENCOUNTER 2022-12-26 08:31 | Outpatient (REF) | payer MEDICARE, SELFPAY ==
[2022-12-26 11:30] LABS: MANUAL DIFF FLAG NO
[2022-12-26 12:07] LABS: Basophils Percent Auto 0.6 % (0-2); Eosinophils Absolute Auto 0.2 X10*3/uL (0.0-0.4); Eosinophils Percent Auto 3.3 % (0-4); Hematocrit 35.4 % (37.0-47.0); Hemoglobin 10.8 g/dl (12.0-16.0); Imm Gran Abs Auto 0.05 X10*3/uL (0.00-0.03); Imm Gran Pct Auto 0.8 % (0.0-0.4); Lymphocytes Absolute Auto 2.6 X10*3/uL (1.2-4.9); Lymphocytes Percent Auto 40.5 % (20-40); Mean Corpuscular HGB Conc 30.5 g/dl (31.0-35.0); Mean Corpuscular Hemoglobin 25.8 pg (27.0-33.0); Mean Corpuscular Volume 84.5 fL (80.0-98.0); Monocytes Absolute Auto 0.4 X10*3/uL (0.1-1.2); Monocytes Percent Auto 6.2 % (2-11); Neutrophils Absolute Auto 3.1 x10*3/uL (2.0-8.3); Neutrophils Percent Auto 48.6 % (45-73); Platelet Count 232 X10*3/uL (160-400); Red Blood Count 4.19 X10*6/uL (4.20-5.50); Red Cell Distribution Width 15.1 % (11.0-16.0); White Blood Count 6.3 X10*3/uL (4.8-10.8)
[2022-12-26 12:26] LABS: Estimated Average Glucose 128 mg/dL; Hemoglobin A1c % 6.1 %
[2022-12-26 12:43] LABS: Alanine Aminotransferase 9 U/L (0-31); Albumin Level 4.1 g/dL (3.5-5.0); Alkaline Phosphatase 60 U/L (39-117); Anion Gap 12 (12-20); Aspartate Amino Transferase 16 U/L (5-31); Bilirubin Total 0.5 mg/dL (0.0-1.0); Blood Urea Nitrogen 11 mg/dL (9-16); Calcium 9.8 mg/dL (8.4-10.2); Carbon Dioxide 27 mmol/L (22-29); Chloride 109 mmol/L (96-108); Cholesterol 180 mg/dL; Estimated Glomerular Filt Rate 48; Glucose Fasting 92 mg/dL (60-99); HDL Cholesterol 51 mg/dL; LDL Cholesterol Calculated 103 mg/dl; Sodium 144 mmol/L (135-145); Total Protein 7.1 g/dL (6.5-8.0); Triglycerides 130 mg/dL
[2022-12-26 13:04] LABS: TSH reflex Free T4 2.19 uIU/mL (0.32-4.0)
[2022-12-26 13:39] LABS: Creatinine Urine 108.59 mg/dL; Microalbum/Creatinine Ratio Ur 19.3 ug/mg cr
== END 2022-12-26 08:32 | disposition home or self-care (01) ==
LOC: HO.HMGCLDS 08:31
PROVIDERS: PCP Internal Medicine; Visit Provider Internal Medicine
DX: E11.9 Type 2 diabetes mellitus without complications (principal); E78.5 Hyperlipidemia, unspecified
CPT/HCPCS: 36415; 80053; 80061; 82043; 83036; 84443; 85025

== ENCOUNTER 2022-12-28 08:33 | Outpatient (AMB) | payer MEDICARE, SELFPAY ==
--- NOTE | 2022-12-28 08:52 | A.OFFPC_ITS ---
Vital Signs 12/28/22 08:53 Height 5 ft 2 in Weight 149 lb BMI 27.2 BP 120/70 Blood Pressure Location Lt brachial Position Sitting Pulse 55 Pulse Source Pulse Oximeter Pulse Oximetry (%) 98 Oxygen Delivery Method Room Air Intake Visit Reasons: 3m follow up Intake Note: Pt is here today for 3 months follow up visit. Allergies erythromycin base Allergy (Intermediate, Verified 12/28/22 08:54) Abdominal Pain potassium chloride Adverse Reaction (Intermediate, Verified 12/28/22 08:54) Abdominal Pain Medication List - Last Reconciled 12/28/22 by Kayla Diego MD albuterol sulfate 90 mcg/actuation 2 puffs inhalation Q4-6H PRN cholecalciferol (vitamin D3) 50 mcg PO DAILY comp.stocking,thigh,long,x-lrg As directed compr.stocking,knee,long,x-lrg As directed dapagliflozin propanediol (Farxiga) 5 mg PO DAILY furosemide 40 mg PO DAILY irbesartan 150 mg PO DAILY metformin 1,000 mg PO BID methylcellulose (laxative) (Citrucel) 500 mg PO DAILY omeprazole 20 mg PO DAILY pravastatin 10 mg PO BEDTIME sertraline 50 mg PO DAILY Tobacco use date assessed: 12/28/22 Fall risk assessment: No Falls in past year Last assessed Fall Risk: 12/28/22 Dental Screening Dental Screen Date: 12/28/22 Did you have a dental visit in the last 12 months?: Yes Did you have a dental problem in the last 6 months where you did not have access to dental care?: No Was dental information given to patient?: Patient has dentist HPI 3m follow up HPI Details Pt presents for f/u DM 2,hyperlipid, DM 2, HTN, stable on meds. Patient has been under lot of stress related to her sister living with Parkinson's disease [facility] Medical History Anemia Chronic lower back pain CKD (chronic kidney disease) stage 3, GFR 30-59 ml/min Diverticulosis Fatigue GERD (gastroesophageal reflux disease) HTN (hypertension) Hyperlipidemia Hypokalemia Left shoulder tendinitis Normal colonoscopy Sciatica SOB (shortness of breath) Type 2 diabetes mellitus Venous insufficiency Surgical History H/O colonoscopy Family History Father No problems noted. 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 How often do you have a drink containing alcohol?: Never 3. How often do you have six or more drinks on one occasion?: Never Total Score: 0 JACK-7 AMB Questionnaire JACK-7 Date JACK - 7 assessed: 08/25/21 Source: Developed by Drs. Tate Alarcon, Leigh Tang, Shaggy Barcenas and colleagues, with an educational kayla from [employer]. Review of Systems Const All systems reviewed & are unremarkable except as noted in HPI and below Reports no additional complaints Eyes Reports no additional complaints ENT Reports no additional complaints Card Reports no additional complaints Resp Reports no additional complaints GI Reports no additional complaints Reports no additional complaints Physical exam (Primary Care) Vital Signs: Last Vital Signs Pulse 55 12/28/22 08:53 BP 120/70 12/28/22 08:53 Pulse Ox 98 12/28/22 08:53 Oxygen Delivery Method Room Air 12/28/22 08:53 BMI result Body Mass Index 27.2 Tobacco/Smoking Status: Tobacco use Status Tobacco use date assessed 12/28/22 12/28/22 08:56 Patient Tobacco Use Status Never used Tobacco 12/28/22 08:56 e-Cigarette/Vaping Use Never Used 12/28/22 08:56 Thrive Assessment: Date of Thrive Assessment Date Thrive assessed 08/25/21 12/28/22 08:56 Const General: no acute distress HENMT Head: Yes normal to inspection Ears: hearing grossly normal bilaterally Mouth: Normal oral and palatal mucosa present Throat: Yes posterior oropharynx normal Eyes General: appearance normal, both eyes and all related structures Neck Neck: Yes supple Resp Effort & Inspection: normal respiratory effort Auscultation: clear to auscultation bilaterally Cardio Rhythm: regular rhythm Heart sounds: S1 normal heart sound present and S2 normal heart sound present GI Inspection: Yes normal to inspection Palpation (GI): Soft to palpation Percussion: Yes normal to percussion Auscultation: normal bowel sounds Assessment and Plan Assessment & Plan (1) CKD (chronic kidney disease) stage 3, GFR 30-59 ml/min: Code(s): N18.30 - Chronic kidney disease, stage 3 unspecified Plan: Monitor renal function avoid NSAID (2) Type 2 diabetes mellitus: Code(s): E11.9 - Type 2 diabetes mellitus without complications Plan: A1c is down to 6.1, continue ADA diet regular exercise Farxiga and decrease metformin to 500 mg a day follow-up in 4 months with a fasting labs before (3) Hyperlipidemia: Code(s): E78.5 - Hyperlipidemia, unspecified Plan: Continue statin (4) HTN (hypertension): Code(s): I10 - Essential (primary) hypertension Plan: Continue current medications Orders: Orders Vitamin B12 and Folate 4 Months D64.9 - Anemia, unspecified, E11.9 - Type 2 diabetes mellitus without complications, E78.5 - Hyperlipidemia, unspecified, I10 - Essential (primary) hypertension, N18.30 - Chronic kidney disease, stage 3 unspecified Comprehensive [place]. Panel Fast 4 Months D64.9 - Anemia, unspecified, E11.9 - Type 2 diabetes mellitus without complications, E78.5 - Hyperlipidemia, unspecified, I10 - Essential (primary) hypertension, N18.30 - Chronic kidney disease, stage 3 unspecified Hemoglobin A1c 4 Months D64.9 - Anemia, unspecified, E11.9 - Type 2 diabetes mellitus without complications, E78.5 - Hyperlipidemia, unspecified, I10 - Essential (primary) hypertension, N18.30 - Chronic kidney disease, stage 3 unspecified IRON PROFILE 4 Months D64.9 - Anemia, unspecified, E11.9 - Type 2 diabetes mellitus without complications, E78.5 - Hyperlipidemia, unspecified, I10 - Essential (primary) hypertension, N18.30 - Chronic kidney disease, stage 3 unspecified Microalbumin, Random (w Creat) 4 Months D64.9 - Anemia, unspecified, E11.9 - Type 2 diabetes mellitus without complications, E78.5 - Hyperlipidemia, unspecified, I10 - Essential (primary) hypertension, N18.30 - Chronic kidney disease, stage 3 unspecified Complete Blood Count Auto Diff 4 Months D64.9 - Anemia, unspecified, E11.9 - Type 2 diabetes mellitus without complications, E78.5 - Hyperlipidemia, unspecified, I10 - Essential (primary) hypertension, N18.30 - Chronic kidney disease, stage 3 unspecified Medications: Changed From metformin 1,000 mg PO BID 180 tabs 3RF To metformin 500 mg (1/2 x 1,000 mg) PO DAILY 90 tabs 3RF Coding Level of Care Code Est Pt Level 4 (03298) Diagnoses CKD (chronic kidney disease) stage 3, GFR 30-59 ml/min N18.30 Type 2 diabetes mellitus E11.9 Hyperlipidemia E78.5 HTN (hypertension) I10
[2022-12-28 08:53] VITALS: BP 120/70; PULSE 55; O2SAT 98; BMI 27.2
== END 2022-12-28 09:41 | disposition home or self-care (01) ==
PROVIDERS: Visit Provider Internal Medicine
DX: E11.22 Type 2 diabetes mellitus with diabetic chronic kidney disease (principal); I12.9 Hypertensive chronic kidney disease with stage 1 through stage 4 chronic kidney disease, or unspecified chronic kidney disease; N18.30 Chronic kidney disease, stage 3 unspecified; E78.5 Hyperlipidemia, unspecified
CPT/HCPCS: 99214

== ENCOUNTER 2023-04-22 07:22 | Outpatient (REF) | payer MEDICARE, SELFPAY ==
[2023-04-22 12:02] LABS: MANUAL DIFF FLAG NO
[2023-04-22 12:13] LABS: Basophils Percent Auto 0.5 % (0-2); Eosinophils Absolute Auto 0.1 X10*3/uL (0.0-0.4); Eosinophils Percent Auto 2.4 % (0-4); Hematocrit 38.9 % (37.0-47.0); Hemoglobin 12.2 g/dl (12.0-16.0); Imm Gran Abs Auto 0.01 X10*3/uL (0.00-0.03); Imm Gran Pct Auto 0.2 % (0.0-0.4); Lymphocytes Absolute Auto 2.3 X10*3/uL (1.2-4.9); Lymphocytes Percent Auto 38.7 % (20-40); Mean Corpuscular HGB Conc 31.4 g/dl (31.0-35.0); Mean Corpuscular Volume 82.8 fL (80.0-98.0); Mean Platelet Volume 8.8 fL (9.4-12.3); Monocytes Absolute Auto 0.4 X10*3/uL (0.1-1.2); Monocytes Percent Auto 5.9 % (2-11); Neutrophils Absolute Auto 3.1 x10*3/uL (2.0-8.3); Neutrophils Percent Auto 52.3 % (45-73); Platelet Count 219 X10*3/uL (160-400); Red Cell Distribution Width 14.1 % (11.0-16.0); White Blood Count 5.9 X10*3/uL (4.8-10.8)
[2023-04-22 12:21] LABS: Estimated Average Glucose 131 mg/dL; Hemoglobin A1c % 6.2 % (<6.0)
[2023-04-22 12:25] LABS: Alanine Aminotransferase 8 U/L (0-31); Albumin Level 4.2 g/dL (3.5-5.0); Alkaline Phosphatase 62 U/L (39-117); Anion Gap 11 (12-20); Aspartate Amino Transferase 18 U/L (5-31); Bilirubin Total 0.5 mg/dL (0.0-1.0); Blood Urea Nitrogen 18 mg/dL (9-16); Calcium 10.2 mg/dL (8.4-10.2); Carbon Dioxide 29 mmol/L (22-29); Chloride 105 mmol/L (96-108); Estimated Glomerular Filt Rate 52; Glucose Fasting 102 mg/dL (60-99); Iron 56 mcg/dL (30-160); Percent Iron Saturation 22 % (15-50); Sodium 141 mmol/L (135-145); Total Iron Binding Capacity 256 mcg/dL (228-428); Total Protein 7.5 g/dL (6.5-8.0); Unsaturated Iron Binding 200 ug/dL
[2023-04-22 12:53] LABS: Folate 9.5 ng/mL (> or = 4.0); Vitamin B12 267 pg/mL (200-900)
[2023-04-22 13:33] LABS: Creatinine Urine 82.92 mg/dL; Microalbum/Creatinine Ratio Ur 10.8 ug/mg cr (<30)
== END 2023-04-22 07:23 | disposition home or self-care (01) ==
LOC: HO.HMGCLDS 07:22
PROVIDERS: PCP Internal Medicine; Visit Provider Internal Medicine
DX: E11.22 Type 2 diabetes mellitus with diabetic chronic kidney disease (principal); I12.9 Hypertensive chronic kidney disease with stage 1 through stage 4 chronic kidney disease, or unspecified chronic kidney disease; N18.30 Chronic kidney disease, stage 3 unspecified; E78.5 Hyperlipidemia, unspecified; D64.9 Anemia, unspecified
CPT/HCPCS: 36415; 80053; 82043; 82570; 82607; 82746; 83036; 83540; 85025

== ENCOUNTER 2023-04-25 07:28 | Outpatient (AMB) | payer MEDICARE, SELFPAY ==
--- NOTE | 2023-04-25 07:40 | A.OFFPC_ITS ---
Vital Signs 04/25/23 07:44 Height 5 ft 2 in Weight 150 lb BMI 27.4 BP 112/58 L Blood Pressure Location Rt brachial Position Sitting Pulse 66 Pulse Source Pulse Oximeter Pulse Oximetry (%) 97 Oxygen Delivery Method Room Air Intake Visit Reasons: 4m follow up Allergies erythromycin base Allergy (Intermediate, Verified 04/25/23 07:44) Abdominal Pain potassium chloride Adverse Reaction (Intermediate, Verified 04/25/23 07:44) Abdominal Pain Medication List - Last Reconciled 04/25/23 by Kayla Diego MD albuterol sulfate 90 mcg/actuation 2 puffs inhalation Q4-6H PRN cholecalciferol (vitamin D3) 50 mcg PO DAILY comp.stocking,thigh,long,x-lrg As directed compr.stocking,knee,long,x-lrg As directed irbesartan 150 mg PO DAILY metformin 500 mg PO DAILY methylcellulose (laxative) (Citrucel) 500 mg PO DAILY pravastatin 10 mg PO BEDTIME sertraline 50 mg PO DAILY Tobacco use date assessed: 12/28/22 HPI 4m follow up HPI Details Pt presents for f/u HTN, DM 2, hyperlipid, stable on meds. Patient stop taking Farxiga a month ago because her insurance increased co-pay at the end of the year. [facility] Medical History CKD (chronic kidney disease) stage 3, GFR 30-59 ml/min Hypokalemia SOB (shortness of breath) Venous insufficiency Sciatica Diverticulosis Anemia Fatigue GERD (gastroesophageal reflux disease) Normal colonoscopy Chronic lower back pain Hyperlipidemia Left shoulder tendinitis HTN (hypertension) Type 2 diabetes mellitus Surgical History H/O colonoscopy Family History Father No problems noted. 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 Tate Alarcon, Leigh Tang, Shaggy Barcenas and colleagues, with an educational kayla from [employer]. Review of Systems Const All systems reviewed & are unremarkable except as noted in HPI and below Reports no additional complaints Eyes Reports no additional complaints ENT Reports no additional complaints Card Reports no additional complaints Resp Reports no additional complaints GI Reports no additional complaints Reports no additional complaints Musc Reports no additional complaints Physical exam (Primary Care) Vital Signs: Last Vital Signs Pulse 66 04/25/23 07:44 BP 112/58 L 04/25/23 07:44 Pulse Ox 97 04/25/23 07:44 Oxygen Delivery Method Room Air 04/25/23 07:44 BMI result Body Mass Index 27.4 Tobacco/Smoking Status: Tobacco use Status Tobacco use date assessed 12/28/22 04/25/23 07:41 Patient Tobacco Use Status Never used Tobacco 04/25/23 07:41 e-Cigarette/Vaping Use Never Used 04/25/23 07:41 Thrive Assessment: Date of Thrive Assessment Date Thrive assessed 08/25/21 04/25/23 07:41 Const General: no acute distress HENMT Head: Yes normal to inspection Ears: hearing grossly normal bilaterally Face and sinus: Yes normal facial exam Eyes General: appearance normal, both eyes and all related structures Neck Neck: Yes supple Resp Effort & Inspection: normal respiratory effort Auscultation: clear to auscultation bilaterally Cardio Rhythm: regular rhythm Heart sounds: S1 normal heart sound present and S2 normal heart sound present GI Inspection: Yes normal to inspection Palpation (GI): Soft to palpation Percussion: Yes normal to percussion Auscultation: normal bowel sounds Assessment and Plan Assessment & Plan (1) CKD (chronic kidney disease) stage 3, GFR 30-59 ml/min: Code(s): N18.30 - Chronic kidney disease, stage 3 unspecified Plan: Monitor renal function avoid NSAIDs, patient will restart Farxiga in June (2) Type 2 diabetes mellitus: Code(s): E11.9 - Type 2 diabetes mellitus without complications Plan: A1c is 6.2, continue ADA diet regular exercise, return in 6 months with a fasting labs before (3) Hyperlipidemia: Code(s): E78.5 - Hyperlipidemia, unspecified Plan: Continue statin (4) HTN (hypertension): Code(s): I10 - Essential (primary) hypertension Plan: Continue current medications Orders: Orders Lipid Panel 6 Months E11.9 - Type 2 diabetes mellitus without complications, E78.5 - Hyperlipidemia, unspecified, I10 - Essential (primary) hypertension, N18.30 - Chronic kidney disease, stage 3 unspecified Comprehensive [place]. Panel Fast 6 Months E11.9 - Type 2 diabetes mellitus without complications, E78.5 - Hyperlipidemia, unspecified, I10 - Essential (primary) hypertension, N18.30 - Chronic kidney disease, stage 3 unspecified Hemoglobin A1c 6 Months E11.9 - Type 2 diabetes mellitus without complications, E78.5 - Hyperlipidemia, unspecified, I10 - Essential (primary) hypertension, N18.30 - Chronic kidney disease, stage 3 unspecified Complete Blood Count Auto Diff 6 Months E11.9 - Type 2 diabetes mellitus without complications, E78.5 - Hyperlipidemia, unspecified, I10 - Essential (primary) hypertension, N18.30 - Chronic kidney disease, stage 3 unspecified Microalbumin, Random (w Creat) 6 Months E11.9 - Type 2 diabetes mellitus without complications, E78.5 - Hyperlipidemia, unspecified, I10 - Essential (primary) hypertension, N18.30 - Chronic kidney disease, stage 3 unspecified Coding Level of Care Code Est Pt Level 4 (81193) Diagnoses CKD (chronic kidney disease) stage 3, GFR 30-59 ml/min N18.30 Type 2 diabetes mellitus E11.9 Hyperlipidemia E78.5 HTN (hypertension) I10
[2023-04-25 07:44] VITALS: BP 112/58; PULSE 66; O2SAT 97; BMI 27.4
== END 2023-04-25 09:34 | disposition home or self-care (01) ==
PROVIDERS: PCP Internal Medicine; Visit Provider Internal Medicine
DX: E11.22 Type 2 diabetes mellitus with diabetic chronic kidney disease (principal); N18.30 Chronic kidney disease, stage 3 unspecified; E78.5 Hyperlipidemia, unspecified; I12.9 Hypertensive chronic kidney disease with stage 1 through stage 4 chronic kidney disease, or unspecified chronic kidney disease
CPT/HCPCS: 99214

== ENCOUNTER 2025-05-13 18:13 | Inpatient (IN) | payer MEDICARE, SELFPAY ==
[2025-05-13] VITALS (8 sets, daily range): BP systolic 101–155; BP diastolic 50–74; PULSE 101–116; RESP 17–20; TEMP 36.8–39.2; O2SAT 92–97; BMI 22.3
--- NOTE | ~2025-05-13 | XR_ITS ---
CLINICAL HISTORY: sepsis 1 view chest x-ray Comparison: None provided Findings: The lungs are clear. Heart size is normal. No acute fracture. IMPRESSION: 1. No acute findings. This document has been electronically signed by: Chelo Merritt MD on 05/13/2025 19:39:07
--- NOTE | ~2025-05-13 | FL_ITS ---
EXAMINATION: FL GUIDANCE ONLY HISTORY: STENT COMPARISON: Correlation is made with a CT of the abdomen with contrast dated 05/13/2025. TECHNIQUE: Fluoroscopy time: 32 seconds. Cumulative Dose: 11.00 mGy. DAP: 2291.60 mGycm2 Images: 2. FINDINGS: Fluoroscopic spot films of the left abdomen demonstrate placement of a nephroureteral stent. FL/FL guidance in OR IMPRESSION: Fluoroscopy during procedure. Please see procedure report for additional information. Electronically signed by: Tate Hagan MD 05/14/2025 02:42 PM [facility]
--- NOTE | ~2025-05-13 | CT_ITS ---
CLINICAL HISTORY: pain, fever CT abdomen and pelvis with contrast Comparison: None provided Findings: No consolidation or effusion. Spleen, liver, gallbladder, pancreas and right kidney are unremarkable. Left kidney demonstrates mild hydronephrosis. There is dilatation of the left ureter and at the left ureterovesical junction there is a 5 mm stone. There is uroepithelial enhancement of the distal left ureter.Normal enhancement of both kidneys. No bowel obstruction, pneumoperitoneum, or pneumatosis. There are scattered colonic diverticula, however no evidence of diverticulitis. Appendix not definitively identified. Uterus and adnexa are unremarkable. No ascites. No acute fracture. No lytic or blastic bone lesions. IMPRESSION: Mild left hydroureteronephrosis secondary to 5 mm stone of the left ureterovesical junction. Uroepithelial enhancement of the distal left ureter could indicate upper tract infection. This document has been electronically signed by: Vinicius Lala MD on 05/13/2025 20:52:59
--- NOTE | 2025-05-13 18:45 | ECG_ITS ---
Test Reason : SEPSIS Blood Pressure : */* mmHG Vent. Rate : 121 BPM Atrial Rate : 121 BPM P-R Int : 152 ms QRS Dur : 68 ms QT Int : 322 ms P-R-T Axes : 54 41 49 degrees QTcB Int : 457 ms Sinus tachycardia with occasional Premature ventricular complexes Nonspecific ST abnormality Abnormal ECG When compared with ECG of 07-May-2021 16:54, Premature ventricular complexes are now Present Vent. rate has increased by 58 bpm T wave amplitude has decreased in Lateral leads Referred By: Chandler Espinosa Electronically Signed By: MONTSE VERDUGO
--- NOTE | 2025-05-13 18:58 | ED.GENADULT ---
HPI - General Adult General Chief complaint: Weakness Stated complaint: General Medical Time Seen by Provider: 05/13/25 18:45 Source: patient, family, RN notes reviewed and old records reviewed Mode of arrival: EMS Limitations: no limitations History of Present Illness ED Provider: Jesús GRISSOM narrative: 80-year-old female with a past medical history significant for chronic kidney disease, eczema on Dupixent, type 2 diabetes, hyperlipidemia, hypertension, GERD presents for evaluation of weakness. The patient was visiting her sister at a local rehab facility where she has been for 3 weeks. The patient has apparently been visiting in the same facility every day Today the patient had a sudden onset of dizziness, lethargy. She has been worked up for anemia. She complains of a dry cough. She has some lower abdominal pain in the right denies any nausea vomiting, diarrhea. Denies any black or bloody stool Denies any rashes Denies any difficulty urinating She arrives to the ED with a temp of a 102.6? Related Data Home Medications ?Medication ?Instructions ?Recorded ?Confirmed cholecalciferol (vitamin D3) 50 50 mcg PO DAILY 10/05/20 04/25/23 mcg (2,000 unit) capsule Previous Rx's ?Medication ?Instructions ?Recorded methylcellulose (laxative) 500 mg 500 mg PO DAILY #90 tabs 08/09/21 tablet (Citrucel) comp.stocking,thigh,long,x-lrg #2 ea 03/17/22 compr.stocking,knee,long,x-lrg #2 ea 03/17/22 albuterol sulfate 90 mcg/actuation 2 puff inhalation Q4-6H PRN 05/31/22 aerosol inhaler shortness of breath or wheezing #8.5 grams metformin 500 mg tablet 500 mg PO DAILY #90 tabs 12/28/22 pravastatin 10 mg tablet 10 mg PO BEDTIME #90 tabs 04/19/23 sertraline 50 mg tablet 50 mg PO DAILY #90 tabs 05/12/23 irbesartan 150 mg tablet 150 mg PO DAILY #90 tabs 12/29/23 Allergies Allergy/AdvReac Type Severity Reaction Status Date / Time erythromycin base Allergy Intermediate Abdominal Verified 05/13/25 18:42 Pain potassium chloride AdvReac Intermediate Abdominal Verified 05/13/25 18:42 Pain Review of Systems Constitutional: Constitutional: Reports body ache(s), Reports chills, Reports fatigue, Reports fever(s), Denies headache(s) and Reports weakness ENT: Denies vertigo, Reports dizziness and Denies headache(s) Cardiovascular: Cardiovascular: Denies chest pain, Denies dyspnea and Denies dyspnea on exertion Respiratory: Respiratory: Denies change in phlegm color, Denies chest congestion, Reports cough, Denies pain with cough, Denies dyspnea and Denies dyspnea on exertion Gastrointestinal: Gastrointestinal: Reports abdominal pain, Denies melena, Denies hematochezia, Denies nausea and Denies vomiting Musculoskeletal: Musculoskeletal: Denies back pain Integumentary/Breasts: Skin/Breast: Denies rash Neurologic: Denies vertigo, Reports dizziness, Denies headache(s) and Reports weakness Endocrine: Endocrine: Reports fatigue PMFSH Past Medical History Medical History CKD (chronic kidney disease) stage 3, GFR 30-59 ml/min Hypokalemia SOB (shortness of breath) Venous insufficiency Sciatica Diverticulosis Anemia Fatigue GERD (gastroesophageal reflux disease) Normal colonoscopy Chronic lower back pain Hyperlipidemia Left shoulder tendinitis HTN (hypertension) Type 2 diabetes mellitus Surgical History H/O colonoscopy Family History Family History Father No problems noted. 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 Cognitive needs: No Hearing needs: No Vision needs: Yes Physical Exam ED Vital Signs: Vital Signs - 24 hr 05/13/25 18:40 05/13/25 20:10 05/13/25 20:53 Temperature 102.5 F H 98.4 F 100.6 F H Pulse Rate 109 H 116 H 115 H Respiratory Rate 18 20 17 Blood Pressure 131/52 L 115/58 L 101/50 L Pulse Oximetry 97 93 Oxygen Delivery Method Room Air Room Air 05/13/25 21:02 05/13/25 21:13 05/13/25 21:17 Temperature 98.2 F Pulse Rate 101 H Respiratory Rate 20 Blood Pressure 107/56 L 108/57 L 108/57 L Pulse Oximetry Oxygen Delivery Method BMI result Body Mass Index 22.3 Const General: healthy appearing, comfortable, no acute distress, alert and awake Nutritional Appearance: well nourished Orientation/consciousness: patient oriented x3 HENMT Head: Yes normocephalic and Yes atraumatic Eyes Eyelids: Yes eyelids normal Conjunctivae: conjunctivae normal Sclerae: sclerae normal Corneas: corneas normal Pupils: Equal, round and reactive pupils present EOM: EOMs intact bilaterally Neck Neck: Yes full ROM Resp Effort & Inspection: normal respiratory effort, able to speak in complete sentences, no audible wheezes and not labored Auscultation: clear to auscultation bilaterally Cardio Rate: regular rate Rhythm: regular rhythm GI Inspection: No distended Palpation (GI): Soft to palpation, not firm, nontender, no guarding and not rigid Rectal Exam - Female: visual inspection normal, normal sphincter tone and No hemorrhoids Skin Other: Skin in his pain General skin exam: no rashes or lesions noted and elasticity normal Neuro General: patient oriented x3 Cranial nerves: Yes CN's II-XII intact bilaterally, Yes Equal, round and reactive pupils present and Yes Bilaterally intact EOM present Cognition (Neuro): normal cognition Extrem Other: Moving all extremities well without any obvious deformities Course Reevaluation(s) Reevaluation #1: The patient arrived and her initial vital signs were abnormal with a fever, tachycardia. I was asked to see the patient, she appeared well but does meet sepsis criteria with suspected infection. She reports a dry cough. At this time a pneumonia or viral respiratory issue is the most likely diagnosis, we will cover with ceftriaxone, IV fluids. She does not meet severe sepsis as she is not hypotensive. All lactic acid is pending. Time: 18:58 Medications Administered Generic Name Dose Route Start Last Admin Trade Name Freq PRN Reason Stop Dose Admin Heparin Sodium (Porcine) 5,000 unit 05/13/25 23:00 05/13/25 22:42 Heparin Sodium,Porcine 5,000 Unit/Ml Vial SUBCUT 5,000 unit Q8H CHELY Administration Lactated Ringer's 1,000 mls @ 100 mls/hr 05/13/25 22:15 05/13/25 22:42 Lr IVCONT 100 mls/hr .Q10H CHELY Administration Discontinued Medications Generic Name Dose Route Start Last Admin Trade Name Na PRN Reason Stop Dose Admin Acetaminophen 975 mg 05/13/25 18:47 05/13/25 19:03 Acetaminophen 325 Mg Tablet PO 05/13/25 18:48 975 mg ONCE ONE Administration Ceftriaxone Sodium 1 gm/ 50 mls @ 100 mls/hr 05/13/25 18:56 05/13/25 20:08 Sodium Chloride IV 05/13/25 19:25 Infused ONCE ONE Infusion Lactated Ringer's 1,000 mls @ 999 mls/hr 05/13/25 19:00 05/13/25 20:48 Lr IV 05/13/25 20:00 Infused .Q1H1M CHELY Infusion Iohexol 100 ml 05/13/25 19:57 05/13/25 20:02 Iohexol 350 Mg/Ml 100 Ml Infus..Btl IV 05/13/25 19:58 85 ml ONCE ONE Administration Medical Decision Making Medical Decision Making MDM Narrative: 80-year-old female presents for evaluation of multiple complaints including weakness, lethargy. She is found to be febrile. She complains of abdominal pain. She has a dry cough. Given her fever and tachycardia she was made a sepsis alert on arrival. I ordered a chest x-ray, urinalysis. Her lactic acid was elevated 2.6 and was treated with IV fluids. She is not meet criteria for severe sepsis at this time. She was given ceftriaxone for broad-spectrum antibiotic coverage. She does not have the flu, COVID-19, or RSV. We will order a CT scan of the abdomen pelvis to help determine the source of her fever. She was also found to be anemic with a hemoglobin of 7.2. This represents a significant drop from her most recent hemoglobin of 12.2 which was about 3 weeks ago. A rectal exam was performed for guaiac testing. No gross or bright red blood was noted on exam. Given the significant drop a blood transfusion was ordered. The patient did sign consent Differential Diagnosis Differential Diagnoses: The differential diagnosis associated with the presentation includes Sepsis UTI Acute appendicitis Diverticulitis Colitis Influenza COVID-19 Pneumonia Cellulitis Admission/Observation Consideration of admission/observation: Escalation of care including admission/observation considered Consult Healthcare Provider Management of the patient was discussed with: Hospitalist and Sales Floor Team Leader (urology, Dr Green) Lab Data MDM Lab Attestation statement: I reviewed the patient's lab results. Mild leukopenia and a fairly significant anemia compared to her baseline with a hemoglobin is 7.2 and a hematocrit 24.0. The patient is on Dupixent which could lead to decreased production of but was red and white cells. However the patient does have a fever of 102.6 in his could be related to sepsis as well. No significant chemistry abnormalities warranting dimension. 05/13/25 18:56 05/13/25 18:56 Labs: Lab Results 05/13/25 05/13/25 05/13/25 Range/Units 18:56 18:59 19:17 WBC 3.1 L (4.8-10.8) X10*3/uL RBC 2.99 L D (4.20-5.50) X10*6/uL Hgb 7.2 L D (12.0-16.0) g/dl Hct 24.0 L D (37.0-47.0) % MCV 80.3 (80.0-98.0) fL MCH 24.1 L (27.0-33.0) pg MCHC 30.0 L (31.0-35.0) g/dl RDW 15.9 (11.0-16.0) % Plt Count 191 (160-400) X10*3/uL MPV 7.8 L (9.4-12.3) fL Immature Gran % (Auto) 0.6 H (0.0-0.4) % Neut % (Auto) 88.2 H (45-73) % Lymph % (Auto) 10.3 L (20-40) % [place] % (Auto) 0.3 L (2-11) % Eos % (Auto) 0.3 (0-4) % Baso % (Auto) 0.3 (0-2) % Lymph # (Auto) 0.3 L (1.2-4.9) X10*3/uL [place] # (Auto) 0.0 L (0.1-1.2) X10*3/uL Eos # (Auto) 0.0 (0.0-0.4) X10*3/uL Baso # (Auto) 0.0 (0.0-0.2) X10*3/uL Abs Immat Gran (auto) 0.02 (0.00-0.03) X10*3/uL Absolute Neuts (auto) 2.8 (2.0-8.3) x10*3/uL Absolute Nucleated RBC 0.000 (0.0-0.012) X10*3/uL Nucleated RBC % (auto) 0.0 (0.0-0.2) /100WBC Sodium 142 (135-145) mmol/L Potassium 4.1 (3.3-5.1) mmol/L Chloride 107 (96-108) mmol/L Carbon Dioxide 25 (22-29) mmol/L Anion Gap 14 (12-20) BUN 20 H (9-16) mg/dL Creatinine 1.14 (0.5-1.4) mg/dL Estim Creat Clear Calc 32.1 Estimated GFR 46 Random Glucose 129 H (60-115) mg/dL Lactic Acid 2.6 H* (0.5-2.0) mmol/L Lactic Acid F/U @ 2Hr (0.5-2.0) mmol/L Calcium 9.4 D (8.4-10.2) mg/dL Total Bilirubin 0.5 (0.0-1.0) mg/dL AST 35 H (5-31) U/L ALT 12 (0-31) U/L Alkaline Phosphatase 68 (39-117) U/L Total Protein 7.4 (6.5-8.0) g/dL Albumin 3.5 (3.5-5.0) g/dL Lipase 47 (8-78) U/L Urine Color Urine Appearance Urine pH (5.0-9.0) Ur Specific [place] (1.005-1.025) Urine Protein (Neg-Trace) mg/dL Urine Glucose (UA) (Negative) mg/dL Urine Ketones (Negative) mg/dL Urine Blood (Negative) Urine Nitrite (Negative) Ur Leukocyte Esterase (Negative) Urine RBC (0-2) /HPF Urine WBC (0-5) /HPF Ur Squamous Epith Cells (0-2) /HPF Urine Bacteria (None Seen) Hyaline Casts (0-2) /LPF Stool Occult Blood (NEGATIVE) Influenza Type A (PCR) NEGATIVE (Negative) Influenza Type B (PCR) NEGATIVE (Negative) RSV RNA Qual (PCR) NEGATIVE (Negative) SARS-CoV-2 RNA (RT-PCR) NEGATIVE (Negative) Blood Type B Positive Antibody Screen NEGATIVE Crossmatch See Detail 05/13/25 05/13/25 05/13/25 Range/Units 20:10 20:12 21:12 WBC (4.8-10.8) X10*3/uL RBC (4.20-5.50) X10*6/uL Hgb (12.0-16.0) g/dl Hct (37.0-47.0) % MCV (80.0-98.0) fL MCH (27.0-33.0) pg MCHC (31.0-35.0) g/dl RDW (11.0-16.0) % Plt Count (160-400) X10*3/uL MPV (9.4-12.3) fL Immature Gran % (Auto) (0.0-0.4) % Neut % (Auto) (45-73) % Lymph % (Auto) (20-40) % [place] % (Auto) (2-11) % Eos % (Auto) (0-4) % Baso % (Auto) (0-2) % Lymph # (Auto) (1.2-4.9) X10*3/uL [place] # (Auto) (0.1-1.2) X10*3/uL Eos # (Auto) (0.0-0.4) X10*3/uL Baso # (Auto) (0.0-0.2) X10*3/uL Abs Immat Gran (auto) (0.00-0.03) X10*3/uL Absolute Neuts (auto) (2.0-8.3) x10*3/uL Absolute Nucleated RBC (0.0-0.012) X10*3/uL Nucleated RBC % (auto) (0.0-0.2) /100WBC Sodium (135-145) mmol/L Potassium (3.3-5.1) mmol/L Chloride (96-108) mmol/L Carbon Dioxide (22-29) mmol/L Anion Gap (12-20) BUN (9-16) mg/dL Creatinine (0.5-1.4) mg/dL Estim Creat Clear Calc Estimated GFR Random Glucose (60-115) mg/dL Lactic Acid (0.5-2.0) mmol/L Lactic Acid F/U @ 2Hr 2.1 H* (0.5-2.0) mmol/L Calcium (8.4-10.2) mg/dL Total Bilirubin (0.0-1.0) mg/dL AST (5-31) U/L ALT (0-31) U/L Alkaline Phosphatase (39-117) U/L Total Protein (6.5-8.0) g/dL Albumin (3.5-5.0) g/dL Lipase (8-78) U/L Urine Color Yellow Urine Appearance Clear Urine pH 7.0 (5.0-9.0) Ur Specific [place] 1.010 (1.005-1.025) Urine Protein Trace (Neg-Trace) mg/dL Urine Glucose (UA) Negative (Negative) mg/dL Urine Ketones Negative (Negative) mg/dL Urine Blood Small (1+) H (Negative) Urine Nitrite Positive H (Negative) Ur Leukocyte Esterase Large (3+) H (Negative) Urine RBC 6-10 H (0-2) /HPF Urine WBC 21-50 H (0-5) /HPF Ur Squamous Epith Cells 0-2 (0-2) /HPF Urine Bacteria 1+ (None Seen) Hyaline Casts 0-2 (0-2) /LPF Stool Occult Blood NEGATIVE (NEGATIVE) Influenza Type A (PCR) (Negative) Influenza Type B (PCR) (Negative) RSV RNA Qual (PCR) (Negative) SARS-CoV-2 RNA (RT-PCR) (Negative) Blood Type Antibody Screen Crossmatch Critical Care Time Critical Care Time Critical Care Time: Yes Total Critical Care Time: 50 Attestation: 80-year-old female presents for evaluation of lethargy she was found to be febrile and septic from an obstructive ureteral list and urosepsis. The patient was also found to have a significant anemia with a hemoglobin dropping from 12.2-7.2 in 3 weeks' time. She was given a blood transfusion. She ultimately required IV fluids, antibiotics, admission and specialist consultation. Discharge Plan Discharge Clinical Impression: Sepsis, Acute unilateral obstructive uropathy Anemia Qualifiers: Anemia type: other cause Other causes of anemia: other cause, not classified Qualified Code(s): D64.89 - Other specified anemias Patient Disposition: Admitted As Inpatient
[2025-05-13] MEDS: Lactated Ringers 1,000 ML 999 ML IV (19:00)
[2025-05-13 19:01] LABS: MANUAL DIFF FLAG NO
[2025-05-13 19:02] LABS: Hematocrit 24.0 % (37.0-47.0); Hemoglobin 7.2 g/dl (12.0-16.0); Imm Gran Abs Auto 0.02 X10*3/uL (0.00-0.03); Imm Gran Pct Auto 0.6 % (0.0-0.4); Lymphocytes Absolute Auto 0.3 X10*3/uL (1.2-4.9); Mean Corpuscular HGB Conc 30.0 g/dl (31.0-35.0); Mean Corpuscular Hemoglobin 24.1 pg (27.0-33.0); Mean Corpuscular Volume 80.3 fL (80.0-98.0); NRBC Abs Auto 0.000 X10*3/uL (0.0-0.012); NRBC Pct Auto 0.0 /100WBC (0.0-0.2); Platelet Count 191 X10*3/uL (160-400); Red Blood Count 2.99 X10*6/uL (4.20-5.50); White Blood Count 3.1 X10*3/uL (4.8-10.8)
[2025-05-13 19:16] LABS: Alanine Aminotransferase 12 U/L (0-31); Albumin Level 3.5 g/dL (3.5-5.0); Alkaline Phosphatase 68 U/L (39-117); Anion Gap 14 (12-20); Aspartate Amino Transferase 35 U/L (5-31); Blood Urea Nitrogen 20 mg/dL (9-16); Calcium 9.4 mg/dL (8.4-10.2); Carbon Dioxide 25 mmol/L (22-29); Chloride 107 mmol/L (96-108); Creatinine Clr Calc Pharmacy 32.1; Estimated Glomerular Filt Rate 46; Lipase 47 U/L (8-78); Potassium 4.1 mmol/L (3.3-5.1); Sodium 142 mmol/L (135-145); Total Protein 7.4 g/dL (6.5-8.0)
--- NOTE | 2025-05-13 19:32 | MHC.EDTECH ---
EKG delayed due to patient getting blood work, xrays and provider in the room after
--- OUTSIDE RECORDS SUMMARY | 2025-05-13 19:46 | XMS_ITS | Encounter Summary ---
Author Organization [facility] Address [address] [place] [id number] Phone Care Team Providers Care Resolution Agent Name Role Phone Kayla Diego MD Primary Care Provider [phone] Encounter Details Date Type Department Care Team (Latest Contact Info) Description 05/15/2020 Transcribe Orders [address] [place] [address] Leopoldo Morales NP [address] [place] [id number] Pre-employment health screening examination (Primary Dx); History of measles, mumps, rubella (MMR) vaccination unknown Social History Tobacco Use Types Packs/Day Years Used Date Smoking Tobacco: Never Assessed Comments Unknown Sex and Gender Information Value Date Recorded Sex Assigned at Not on file Legal Sex Female 11:48 AM EST Gender Identity Not on file Sexual Orientation Not on file documented as of this encounter Plan of Treatment Not on file documented as of this encounter Results * Hepatitis B surface antigen (05/15/2020 12:11 PM EST) HBV SURFACE ANTIGEN NON-REACTI VE NON-REACTI VE [facility] Blood 05/15/2020 12:1 1 PM EST 05/15/2020 12:13 PM EST Leopoldo Morales NP LAB BLOOD BKR ORDERABLES Final R esult [facility] [address] [place] [address] * Hepatitis B surface antibody (05/15/2020 12:11 PM EST) HBV SURFACE ANTIBODY Negative [facility] Comment: Unvaccinated: Negative Vaccinated: Positive Blood 05/15/2020 12:1 1 PM EST 05/15/2020 12:13 PM EST us Leopoldo Andrew NIGHT TIME NANNY LAB BLOOD BKR ORDERABLES Final R esult [facility] [address] [place] [address] documented in this encounter Visit Diagnoses Diagnosis Pre-employment health screening examination- Primary Health examination of defined subpopulation History of measles, mumps, rubella (MMR) vaccination unknown documented in this encounter Care Teams Resolution Agent Relationship Specialty Start Date End Date Kayla Diego MD [address] [place] [id number] PCP - General 05/15/20 documented as of this encounter Additional Source Comments The information contained in this document represents components of the legal health record. It is not the complete legal health record.[facility]
--- OUTSIDE RECORDS SUMMARY | 2025-05-13 19:46 | XMS_ITS | Clinical Summary ---
Author Organization [facility] Address [address] [place], [place] [id number] Phone Care Team Providers Care Case Preparer And Liner Name Role Phone Kayla Diego MD Primary Care Provider [phone] Social History Tobacco Use Types Packs/Day Years Used Date Smoking Tobacco: Never Assessed Education Answer Date Recorded Are you interested in more education? Not on abeba e 10/07/2022 Are you concerned about learning? Not on file 10/07/2022 No 10/07/2022 No 10/07/2022 Digital Access Answer Date Recorded No 11/08/2022 No 11/08/2022 Reliable internet access at home? Not on file 11/08/2022 Device with a working camera? Not on file Comments Unknown Sex and Gender Information Value Date Recorded Sex Assigned at Not on file Legal Sex Female 11:48 AM EST Gender Identity Not on file Sexual Orientation Not on file Plan of Treatment Not on file Medical Devices Not on file Insurance MEDICARE PART A & B [place] BLUE [place]ACEMENT MEDICARE PART A & B Member Subscriber Plan / Payer (Ef fective 2012-Present) Name:Aysha Wadsworth Member ID:[id number] Relation to Subscriber:Self Name:Aysha Wadsworth Subscriber ID:[id number] Payer ID:[id number] Group ID:Not on file Type:Medicare Address: [employer] [address] [place] [address] [place] [address] MEDICARE PPO BLUE REPLACEMENT MEDICARE PART A & B [facility] MEDICARE PPO BLUE REPLACEMENT MEDICARE PART A & [place]AC[place] MEDICARE PART A & B Member Subscriber Plan / Payer ( fective 2012-Present) Name:Aysha Wadsworth Member ID:[id number] Relation to Subscriber:Self Name:Aysha Wadsworth Subscriber ID:[id number] Payer ID:[id number] Group ID:Not on file Type:Medicare Address: [email or web address] [address] [place] [id number] [facility] MEDICARE PPO BLUE REPLACEMENT MEDICARE PART A & B [facility] MEDICARE PPO BLUE REPLACEMENT MEDICARE PART A & B [facility] MEDICARE PPO BLUE REPLACEMENT MEDICARE PART A & B [facility] MEDICARE PPO BLUE REPLACEMENT MEDICARE PART A & [place]AC[place] Care Teams Case Preparer And Liner Relationship Specialty Start Date End Date Kayla Diego MD [address] [place] [id number] PCP - General 05/15/20 Additional Source Comments The information contained in this document represents components of the legal health record. It is not the complete legal health record.[facility]
[2025-05-13 19:50] LABS: Resp Syncy Virus RNA Qual PCR NEGATIVE (Negative); SARS COV2 PCR INHOUSE NEGATIVE (Negative)
--- NOTE | 2025-05-13 19:56 | PC.NURSE ---
this rn assumed care of pt at 1900. sepsis alert called, all labs and vs obtained at this time. pt noted to be febrile and medicated per aug. pt assisted to bathroom and urine sample obtained, pt taken to ct at this time.
[2025-05-13] MEDS: iohexoL 350 MG/ML 100 ML INFUS..BTL IV (20:02)
--- NOTE | 2025-05-13 20:13 | PC.NURSE ---
Phi SNOWDEN at bedside obtaining blood consent at this time. vsjordin
[2025-05-13 20:28] LABS: OBS Int Ctl Valid YES; OBS1 NEGATIVE (NEGATIVE)
[2025-05-13 20:29] LABS: Appearance Urine Clear; Glucose Urine UA Negative (Negative); PH 7.0 (5.0-9.0); Specific Gravity - Urine 1.010 (1.005-1.025); UMIC TRIGGER UACC YES
[2025-05-13 20:34] LABS: UACC Culture Trigger YES
--- NOTE | 2025-05-13 20:59 | PC.NURSE ---
vital signs obtained prior to blood transfusion, pt noted to be febrile at 100.6, Phi SNOWDEN aware and okay to start blood at this time.
[2025-05-13 21:00] LABS: Reflex Lactate? Lactic Acid Added
--- NOTE | 2025-05-13 21:17 | PC.NURSE ---
initial 15 minute transfusion completed at this time, lung sounds clear bilaterally and vss
[2025-05-13 21:35] LABS: ~Lactic Acid-LAB USE ONLY 2.1 mmol/L (0.5-2.0)
[2025-05-13] MEDS: Lactated Ringers 1,000 ML 100 ML IVCONT (22:42)
--- NOTE | 2025-05-13 22:51 | P.HPHOSP_ITS ---
History of Present Illness Date of Service: 05/13/25 Chief Complaint: Generalized weakness 80-year-old female with a past medical history of HTN, HLD, dm, GERD, anemia, sciatica, CKD; presented to the hospital with a chief complaint of generalized weakness. Patient mentioned that for the past day she has been feeling generally weak and tired. Went to visit her sister in rehab and noted to be dizzy and exhausted. Fairly lethargic. Subsequently came to the hospital for further evaluation. Denies any fever chills. Denies any sick contacts. Denies any nausea vomiting. Denies any dysuria. Review of all other systems is negative except mentioned above ER course: Per ER team, patient on presentation noted to be afebrile; blood pressure on the soft side; urinalysis abnormal consistent with UTI. CT abdomen pelvis showed was done which showed UPJ stone with obstruction. Urology was notified who suggested admission to the medicine service and NPO after midnight for possible stenting. Patient received ceftriaxone. Patient hemoglobin also dropped from 10-7. Stool guaiac was negative. Patient denied any signs of bleeding. Patient given 1 unit of PRBC. Apparently patient being worked up for anemia as outpatient. [facility] Medical History CKD (chronic kidney disease) stage 3, GFR 30-59 ml/min Hypokalemia SOB (shortness of breath) Venous insufficiency Sciatica Diverticulosis Anemia Fatigue GERD (gastroesophageal reflux disease) Normal colonoscopy Chronic lower back pain Hyperlipidemia Left shoulder tendinitis HTN (hypertension) Type 2 diabetes mellitus Family History Father No problems noted. 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 Cognitive needs: No Hearing needs: No Vision needs: Yes Meds Allergies Allergy/AdvReac Type Severity Reaction Status Date / Time erythromycin base Allergy Intermediate Abdominal Verified 05/13/25 18:42 Pain potassium chloride AdvReac Intermediate Abdominal Verified 05/13/25 18:42 Pain Active Medications: Current Medications Acetaminophen (Acetaminophen 325 Mg Tablet) 650 mg PO Q6H PRN PRN Reason: Pain, Mild 1-3,fever,headache Calcium Carbonate (Calcium Carbonate 750 Mg Tab.Chew) 750 mg PO Q4H PRN PRN Reason: Heartburn Heparin Sodium (Porcine) (Heparin Sodium,Porcine 5,000 Unit/Ml Vial) 5,000 unit SUBCUT Q8H PENDING SALE TO [facility] Last Admin: 05/13/25 22:42 Dose: 5,000 unit Hydromorphone HCl (Hydromorphone Hcl 1 Mg/Ml Syringe) 0.5 mg IVPUSH Q4H PRN; Protocol PRN Reason: Breakthrough Pain Lactated Ringer's (Lr) 1,000 mls @ 100 mls/hr IVCONT .Q10H [facility]END[facility] S[facility] TO [facility] Last Admin: 05/13/25 22:42 Dose: 100 mls/hr Ceftriaxone Sodium 1 gm/ (Sodium Chloride) 50 mls @ 100 mls/hr IV Q24H PENDING SALE TO [facility] Magnesium Hydroxide (Milk Of Magnesia 30 Ml Oral.Susp) 30 ml PO DAILY PRN PRN Reason: Constipation Melatonin (Melatonin 3 Mg Tablet) 6 mg PO BEDTIME PRN PRN Reason: Insomnia Sodium Chloride (0.9 % Sodium Chloride Flush 3 Ml Syringe) 3 ml IVFLUSH QSHIFT PENDING SALE TO [facility] Home Medications ?Medication ?Instructions ?Recorded ?Confirmed ?Last Taken ?Type cholecalciferol (vitamin D3) 50 50 mcg PO DAILY 04/25/23 Unknown History mcg (2,000 unit) capsule Physical Exam 2 Vital Signs and Narrative: Vital Signs: Last Vital Signs Temp 98.3 F 05/13/25 22:40 Pulse 111 H 05/13/25 22:40 Resp 20 05/13/25 22:40 BP 102/50 L 05/13/25 22:40 Pulse Ox 92 05/13/25 22:40 O2 Del Method Room Air 05/13/25 22:40 BMI result Body Mass Index 22.3 Gen: Appears be in no acute distress HEENT: NCAT, Moist mucosa. Pulmonary: Vesicular breath sounds, fair air entry CVS: Normal S1-S2 Abdomen: BS+, Soft, Nontender Extremities: Warm well perfused Neuro: Alert and awake. Results Labs 05/13/25 18:56 05/13/25 18:56 Labs: Laboratory Results - last 24 hr 05/13/25 05/13/25 05/13/25 18:56 18:59 19:17 MCV 80.3 MCH 24.1 L MCHC 30.0 L RDW 15.9 Plt Count 191 MPV 7.8 L Immature Gran % (Auto) 0.6 H Neut % (Auto) 88.2 H Lymph % (Auto) 10.3 L [place] % (Auto) 0.3 L Eos % (Auto) 0.3 Baso % (Auto) 0.3 Lymph # (Auto) 0.3 L [place] # (Auto) 0.0 L Eos # (Auto) 0.0 Baso # (Auto) 0.0 Abs Immat Gran (auto) 0.02 Absolute Neuts (auto) 2.8 Absolute Nucleated RBC 0.000 Nucleated RBC % (auto) 0.0 Anion Gap 14 Estim Creat Clear Calc 32.1 Estimated GFR 46 Random Glucose 129 H Lactic Acid 2.6 H* Lactic Acid F/U @ 2Hr Calcium 9.4 D Iron TIBC % Saturation Unsat Iron Binding Total Bilirubin 0.5 AST 35 H ALT 12 Alkaline Phosphatase 68 Total Protein 7.4 Albumin 3.5 Lipase 47 Urine Color Urine Appearance Urine pH Ur Specific [place] Urine Protein Urine Glucose (UA) Urine Ketones Urine Blood Urine Nitrite Ur Leukocyte Esterase Urine RBC Urine WBC Ur Squamous Epith Cells Urine Bacteria Hyaline Casts Stool Occult Blood Influenza Type A (PCR) NEGATIVE Influenza Type B (PCR) NEGATIVE RSV RNA Qual (PCR) NEGATIVE SARS-CoV-2 RNA (RT-PCR) NEGATIVE Blood Type B Positive Antibody Screen NEGATIVE Crossmatch See Detail 05/13/25 05/13/25 05/13/25 20:10 20:12 21:12 MCV MCH MCHC RDW Plt Count MPV Immature Gran % (Auto) Neut % (Auto) Lymph % (Auto) [place] % (Auto) Eos % (Auto) Baso % (Auto) Lymph # (Auto) [place] # (Auto) Eos # (Auto) Baso # (Auto) Abs Immat Gran (auto) Absolute Neuts (auto) Absolute Nucleated RBC Nucleated RBC % (auto) Anion Gap Estim Creat Clear Calc Estimated GFR Random Glucose Lactic Acid Lactic Acid F/U @ 2Hr 2.1 H* Calcium Iron TIBC % Saturation Unsat Iron Binding Total Bilirubin AST ALT Alkaline Phosphatase Total Protein Albumin Lipase Urine Color Yellow Urine Appearance Clear Urine pH 7.0 Ur Specific [place] 1.010 Urine Protein Trace Urine Glucose (UA) Negative Urine Ketones Negative Urine Blood Small (1+) H Urine Nitrite Positive H Ur Leukocyte Esterase Large (3+) H Urine RBC 6-10 H Urine WBC 21-50 H Ur Squamous Epith Cells 0-2 Urine Bacteria 1+ Hyaline Casts 0-2 Stool Occult Blood NEGATIVE Influenza Type A (PCR) Influenza Type B (PCR) RSV RNA Qual (PCR) SARS-CoV-2 RNA (RT-PCR) Blood Type Antibody Screen Crossmatch 05/13/25 22:17 MCV MCH MCHC RDW Plt Count MPV Immature Gran % (Auto) Neut % (Auto) Lymph % (Auto) [place] % (Auto) Eos % (Auto) Baso % (Auto) Lymph # (Auto) [place] # (Auto) Eos # (Auto) Baso # (Auto) Abs Immat Gran (auto) Absolute Neuts (auto) Absolute Nucleated RBC Nucleated RBC % (auto) Anion Gap Estim Creat Clear Calc Estimated GFR Random Glucose Lactic Acid Lactic Acid F/U @ 2Hr Calcium Iron 14 L TIBC 145 L % Saturation 10 L Unsat Iron Binding 131 Total Bilirubin AST ALT Alkaline Phosphatase Total Protein Albumin Lipase Urine Color Urine Appearance Urine pH Ur Specific [place] Urine Protein Urine Glucose (UA) Urine Ketones Urine Blood Urine Nitrite Ur Leukocyte Esterase Urine RBC Urine WBC Ur Squamous Epith Cells Urine Bacteria Hyaline Casts Stool Occult Blood Influenza Type A (PCR) Influenza Type B (PCR) RSV RNA Qual (PCR) SARS-CoV-2 RNA (RT-PCR) Blood Type Antibody Screen Crossmatch Assessment and Plan (1) Anemia: Qualifiers: Anemia type: other cause Other causes of anemia: other cause, not classified Qualified Code(s): D64.89 - Other specified anemias Status: Acute 80-year-old female with a past medical history of HTN, HLD, dm, GERD, anemia, sciatica, CKD; presented to the hospital with a chief complaint of generalized weakness. Admitted for following Anemia: Stool guaiac negative in the ER Patient denies any signs of bleeding Will obtain iron studies, folate B12 Hematology-Oncology consult Patient being transfused 1 unit of PRBC Left UVJ stone/UTI: Continue ceftriaxone. Follow up with Urology. NPO after midnight. Diabetes: Insulin sliding scale Med reconciliation: Resume home medications once med rec completed by pharmacy in a.m. DVT prophylaxis: Subcu heparin Code status: Full code Quality Stroke Does the patient have a stroke diagnosis?: No VTE Prior VTE?: No VTE Risk Level:: Medical - moderate - high VTE Device Contraindication: Treatment Not Indicated VTE Drug Contraindication: N/A - Med Ordered
[2025-05-14] VITALS (15 sets, daily range): BP systolic 99–132; BP diastolic 45–62; PULSE 68–99; RESP 12–20; TEMP 36.1–37.1; O2SAT 92–100
[2025-05-14 00:01] LABS: ~Lactic Acid-LAB USE ONLY 1.3 mmol/L (0.5-2.0)
--- NOTE | 2025-05-14 04:24 | PC.NURSE ---
lab contacted romain henderson for critical labs. first set of blood cultures positive. gram - rods. MD Stokes contacted via [employer]
[2025-05-14 04:30] LABS: Hematocrit 23.6 % (37.0-47.0); Hemoglobin 7.4 g/dl (12.0-16.0); Mean Corpuscular HGB Conc 31.4 g/dl (31.0-35.0); Mean Corpuscular Hemoglobin 25.0 pg (27.0-33.0); Mean Corpuscular Volume 79.7 fL (80.0-98.0); NRBC Abs Auto 0.000 X10*3/uL (0.0-0.012); NRBC Pct Auto 0.0 /100WBC (0.0-0.2); Platelet Count 155 X10*3/uL (160-400); Red Blood Count 2.96 X10*6/uL (4.20-5.50); White Blood Count 15.6 X10*3/uL (4.8-10.8)
[2025-05-14 04:45] LABS: Alanine Aminotransferase 37 U/L (0-31); Albumin Level 2.9 g/dL (3.5-5.0); Anion Gap 13 (12-20); Aspartate Amino Transferase 82 U/L (5-31); Blood Urea Nitrogen 21 mg/dL (9-16); Calcium 8.6 mg/dL (8.4-10.2); Carbon Dioxide 24 mmol/L (22-29); Chloride 106 mmol/L (96-108); Creatinine Clr Calc Pharmacy 34.9; Estimated Glomerular Filt Rate 51; Potassium 3.8 mmol/L (3.3-5.1); Sodium 139 mmol/L (135-145); Total Protein 6.2 g/dL (6.5-8.0)
[2025-05-14 04:55] LABS: Alkaline Phosphatase 112 U/L (39-117)
[2025-05-14 04:59] LABS: Band Neutrophils Percent 19 % (3-5); Lymphocytes Absolute Manual 0.3 X10*3/uL (1.2-4.9); Lymphocytes Percent Manual 2 % (20-40); Monocytes Absolute Manual 0.2 X10*3/uL (0.1-1.2); Monocytes Percent Manual 1 % (2-11); Neutrophils Absolute Manual 15.1 X10*3/uL (2.0-8.3); Neutrophils Percent Manual 78 % (45-73)
[2025-05-14 05:01] LABS: Burr Cells 2+ (3-5) /OIF; Large Platelet PRESENT; Macrocytosis 1+ (5-14) /OIF; Ovalocytes 1+ (5-14) /OIF; RBC Morphology NOTED
[2025-05-14 05:02] LABS: Hypochromasia 1+ (5-14) /OIF
--- NOTE | 2025-05-14 08:02 | PHA.MEDREC ---
Pharmacy Consult ? Medication Reconciliation Pharmacy has completed the medication reconciliation. Spoke with pt at bedside to confirm medications. Pt confirmed last dose of Dupixent q14day, last taken 04/11. Pt is no longer on naproxen. She states she ran out of refills for irbesartan, but should still be on this.
[2025-05-14 09:04] LABS: Hematocrit 23.2 % (37.0-47.0); Hemoglobin 7.1 g/dl (12.0-16.0); Mean Corpuscular HGB Conc 30.6 g/dl (31.0-35.0); Mean Corpuscular Hemoglobin 24.4 pg (27.0-33.0); Mean Corpuscular Volume 79.7 fL (80.0-98.0); NRBC Abs Auto 0.000 X10*3/uL (0.0-0.012); NRBC Pct Auto 0.0 /100WBC (0.0-0.2); Platelet Count 171 X10*3/uL (160-400); Red Blood Count 2.91 X10*6/uL (4.20-5.50); Reticulocytes Absolute 0.035 X10*6/uL (0.026-0.095); White Blood Count 18.0 X10*3/uL (4.8-10.8)
--- NOTE | 2025-05-14 09:20 | P.CNUR_ITS ---
History of Present Illness Consult details Consult date: 05/14/25 Narrative: Left Ureteral stone. fever on admission 80-year-old female with a past medical history significant for chronic kidney disease, eczema on Dupixent, type 2 diabetes, hyperlipidemia, hypertension, GERD presented to ED for evaluation of weakness. She arrived to the ED with a temp of a 102.6? CTAP- left UVJ stone, mild left hydro, labs: FREDY, UA- nitrite positive Review of Systems 2 Review of Systems: Yes all other systems are reviewed and are negative Constitutional: Constitutional: Reports no additional constitutional complaints Eyes: Eyes: Reports no additional eye complaints ENT: Reports system reviewed and no additional complaints, except as documented Cardiovascular: Cardiovascular: Reports no additional cardiovascular complaints Respiratory: Respiratory: Reports no additional respiratory complaints Gastrointestinal: Gastrointestinal: Reports no additional gastrointestinal complaints Genitourinary: Genitourinary: Reports as per HPI Musculoskeletal: Musculoskeletal: Reports no additional musculoskeletal complaints Integumentary/Breasts: Skin/Breast: Reports system reviewed and no additional complaints, except as docu Neurologic: Reports system reviewed and no additional complaints, except as documented Psychiatric: Psychiatric: Reports no additional psychiatric complaints Endocrine: Endocrine: Reports no additional endocrine complaints Hematologic/Lymphatic: Hematologic/Lymphatic: Reports no additional hematologic/lymphatic complaints Allergic/Immunologic: Allergic/Immunologic: Reports no additional allergic/immunologic complaints PMFSH Past Medical History Medical History CKD (chronic kidney disease) stage 3, GFR 30-59 ml/min Hypokalemia SOB (shortness of breath) Venous insufficiency Sciatica Diverticulosis Anemia Fatigue GERD (gastroesophageal reflux disease) Normal colonoscopy Chronic lower back pain Hyperlipidemia Left shoulder tendinitis HTN (hypertension) Type 2 diabetes mellitus Family History Family History Father No problems noted. Mother Diabetes mellitus Sister Colorectal cancer Afib Surgical History Surgical History H/O colonoscopy Social History Social History Household Members: Family Housing: House Are you a primary dialysis patient care technician to a significant other at home: No Do you presently have visiting nurse or other home services: No Alcohol intake: never Patient Tobacco Use Status: Never used Tobacco Smoked in Last 30 Days: No e-Cigarette/Vaping Use: Never Used Second Hand Smoke Exposure: No Use of substances other than those prescribed or required for medical reasons: No Have you been hit, kicked, punched, or otherwise hurt by someone within the past year? If so, by whom?: No Do you feel safe in your current relationship?: No Current Relationship Is there a partner from a previous relationship who is making you feel unsafe now?: No Are you made to feel afraid or neglected: No Spiritual Healthcare Practices: no Gnosticist Healthcare Practices: no Cultural Healthcare Practices: no Advance Directives: No Advance Directives Information Provided: No Advance Directives on File: No Do you have a plan to hurt others: No Plan Recently lost weight without trying: No Nutrition Risks: No Nutritional Risk Patient : No : No Current occupational status: employed 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 Cognitive needs: No Hearing needs: No Vision needs: Yes Meds Allergies Allergy/AdvReac Type Severity Reaction Status Date / Time erythromycin base Allergy Intermediate Abdominal Verified 05/13/25 18:42 Pain potassium chloride AdvReac Intermediate Abdominal Verified 05/13/25 18:42 Pain Active Medications: Current Medications Acetaminophen (Acetaminophen 325 Mg Tablet) 650 mg PO Q6H PRN PRN Reason: Pain, Mild 1-3,fever,headache Calcium Carbonate (Calcium Carbonate 750 Mg Tab.Chew) 750 mg PO Q4H PRN PRN Reason: Heartburn Ferrous Sulfate (Ferrous Sulfate 324 Mg Tablet.Dr) 324 mg PO DAILY [facility] Heparin Sodium (Porcine) (Heparin Sodium,Porcine 5,000 Unit/Ml Vial) 5,000 unit SUBCUT Q8H [facility] Last Admin: 05/13/25 22:42 Dose: 5,000 unit Hydromorphone HCl (Hydromorphone Hcl 1 Mg/Ml Syringe) 0.5 mg IVPUSH Q4H PRN; Protocol PRN Reason: Breakthrough Pain Lactated Ringer's (Lr) 1,000 mls @ 100 mls/hr IVCONT .Q10H [facility] Last Admin: 05/13/25 22:42 Dose: 100 mls/hr Ceftriaxone Sodium 1 gm/ (Sodium Chloride) 50 mls @ 100 mls/hr IV Q24H [facility] Magnesium Hydroxide (Milk Of Magnesia 30 Ml Oral.Susp) 30 ml PO DAILY PRN PRN Reason: Constipation Melatonin (Melatonin 3 Mg Tablet) 6 mg PO BEDTIME PRN PRN Reason: Insomnia Sertraline HCl (Sertraline Hcl 50 Mg Tablet) 50 mg PO DAILY [facility] Sodium Chloride (0.9 % Sodium Chloride Flush 3 Ml Syringe) 3 ml IVFLUSH QSHIFT [facility] Last Admin: 05/14/25 08:38 Dose: Not Given Vitamin D (Cholecalciferol (Vitamin D3) 25 Mcg Tablet) 50 mcg PO DAILY [facility] Home Medications ?Medication ?Instructions ?Recorded ?Confirmed ?Last Taken ?Type cholecalciferol (vitamin D3) 50 50 mcg PO DAILY 05/14/25 05/13/25 History mcg (2,000 unit) capsule dupilumab 300 mg/2 mL subcutaneous 300 mg subcut Q14D 05/14/25 05/14/25 04/11/25 History pen injector (Dupixent) ferrous sulfate 325 mg (65 mg 325 mg PO DAILY 05/14/25 05/14/25 05/13/25 History iron) tablet (FeroSul) Physical Exam 2 Vital Signs: Vital Signs: Last Vital Signs Temp 98 F 05/14/25 08:00 Pulse 85 05/14/25 08:00 Resp 18 05/14/25 08:00 BP 108/59 L 05/14/25 08:00 Pulse Ox 97 05/14/25 08:00 O2 Del Method Room Air 05/14/25 08:00 BMI result Body Mass Index 22.3 Const: General: cooperative, healthy appearing and no acute distress O rientation/consciousness: patient oriented x3 HEENT: Head: Yes normal to inspection, Yes normocephalic and Yes atraumatic Eyes: Conjunctivae: conjunctivae normal Neck: Neck: Yes normal visual inspection and Yes trachea midline Chest: Chest palpation & inspection: normal inspection of the chest Resp: Effort & Inspection: normal respiratory effort GI: Inspection: Yes normal to inspection Palpation (GI): Soft to palpation and Tenderness to palpation present (GI) in the LLQ Neuro: General: patient oriented x3 Psych: Appearance: grossly normal Results Labs 05/14/25 08:52 05/14/25 04:09 Labs: Abnormal lab results 05/13/25 05/13/25 05/13/25 Range/Units 18:56 19:17 20:10 WBC 3.1 L (4.8-10.8) X10*3/uL RBC 2.99 L D (4.20-5.50) X10*6/uL Hgb 7.2 L D (12.0-16.0) g/dl Hct 24.0 L D (37.0-47.0) % MCV (80.0-98.0) fL MCH 24.1 L (27.0-33.0) pg MCHC 30.0 L (31.0-35.0) g/dl Plt Count (160-400) X10*3/uL MPV 7.8 L (9.4-12.3) fL Immature Gran % (Auto) 0.6 H (0.0-0.4) % Neut % (Auto) 88.2 H (45-73) % Lymph % (Auto) 10.3 L (20-40) % [place] % (Auto) 0.3 L (2-11) % Lymph # (Auto) 0.3 L (1.2-4.9) X10*3/uL [place] # (Auto) 0.0 L (0.1-1.2) X10*3/uL Neutrophils % (Manual) (45-73) % Band Neutrophils % (3-5) % Lymphocytes % (Manual) (20-40) % Monocytes % (Manual) (2-11) % Abs Neuts (Manual) (2.0-8.3) X10*3/uL Lymphocytes # (Manual) (1.2-4.9) X10*3/uL Retic Hgb Equivalent (30.0-35.0) pg BUN 20 H (9-16) mg/dL Random Glucose 129 H (60-115) mg/dL Lactic Acid 2.6 H* (0.5-2.0) mmol/L Lactic Acid F/U @ 2Hr (0.5-2.0) mmol/L Iron (30-160) mcg/dL TIBC (228-428) mcg/dL % Saturation (15-50) % AST 35 H (5-31) U/L ALT (0-31) U/L Lactate Dehydrogenase (122-220) U/L Total Protein (6.5-8.0) g/dL Albumin (3.5-5.0) g/dL Urine Blood Small (1+) H (Negative) Urine Nitrite Positive H (Negative) Ur Leukocyte Esterase Large (3+) H (Negative) Urine RBC 6-10 H (0-2) /HPF Urine WBC 21-50 H (0-5) /HPF Crossmatch See Detail 05/13/25 05/13/25 05/14/25 Range/Units 21:12 22:17 04:09 WBC 15.6 H (4.8-10.8) X10*3/uL RBC 2.96 L (4.20-5.50) X10*6/uL Hgb 7.4 L (12.0-16.0) g/dl Hct 23.6 L (37.0-47.0) % MCV 79.7 L (80.0-98.0) fL MCH 25.0 L (27.0-33.0) pg MCHC (31.0-35.0) g/dl Plt Count 155 L (160-400) X10*3/uL MPV 8.2 L (9.4-12.3) fL Immature Gran % (Auto) (0.0-0.4) % Neut % (Auto) (45-73) % Lymph % (Auto) (20-40) % [place] % (Auto) (2-11) % Lymph # (Auto) (1.2-4.9) X10*3/uL [place] # (Auto) (0.1-1.2) X10*3/uL Neutrophils % (Manual) 78 H (45-73) % Band Neutrophils % 19 H (3-5) % Lymphocytes % (Manual) 2 L (20-40) % Monocytes % (Manual) 1 L (2-11) % Abs Neuts (Manual) 15.1 H (2.0-8.3) X10*3/uL Lymphocytes # (Manual) 0.3 L (1.2-4.9) X10*3/uL Retic Hgb Equivalent (30.0-35.0) pg BUN 21 H (9-16) mg/dL Random Glucose (60-115) mg/dL Lactic Acid (0.5-2.0) mmol/L Lactic Acid F/U @ 2Hr 2.1 H* (0.5-2.0) mmol/L Iron 14 L (30-160) mcg/dL TIBC 145 L (228-428) mcg/dL % Saturation 10 L (15-50) % AST 82 H (5-31) U/L ALT 37 H (0-31) U/L Lactate Dehydrogenase (122-220) U/L Total Protein 6.2 L (6.5-8.0) g/dL Albumin 2.9 L (3.5-5.0) g/dL Urine Blood (Negative) Urine Nitrite (Negative) Ur Leukocyte Esterase (Negative) Urine RBC (0-2) /HPF Urine WBC (0-5) /HPF Crossmatch 05/14/25 Range/Units 08:52 WBC 18.0 H (4.8-10.8) X10*3/uL RBC 2.91 L (4.20-5.50) X10*6/uL Hgb 7.1 L (12.0-16.0) g/dl Hct 23.2 L (37.0-47.0) % MCV 79.7 L (80.0-98.0) fL MCH 24.4 L (27.0-33.0) pg MCHC 30.6 L (31.0-35.0) g/dl Plt Count (160-400) X10*3/uL MPV 8.4 L (9.4-12.3) fL Immature Gran % (Auto) (0.0-0.4) % Neut % (Auto) (45-73) % Lymph % (Auto) (20-40) % [place] % (Auto) (2-11) % Lymph # (Auto) (1.2-4.9) X10*3/uL [place] # (Auto) (0.1-1.2) X10*3/uL Neutrophils % (Manual) (45-73) % Band Neutrophils % (3-5) % Lymphocytes % (Manual) (20-40) % Monocytes % (Manual) (2-11) % Abs Neuts (Manual) (2.0-8.3) X10*3/uL Lymphocytes # (Manual) (1.2-4.9) X10*3/uL Retic Hgb Equivalent 23.7 L (30.0-35.0) pg BUN (9-16) mg/dL Random Glucose (60-115) mg/dL Lactic Acid (0.5-2.0) mmol/L Lactic Acid F/U @ 2Hr (0.5-2.0) mmol/L Iron (30-160) mcg/dL TIBC (228-428) mcg/dL % Saturation (15-50) % AST (5-31) U/L ALT (0-31) U/L Lactate Dehydrogenase 296 H (122-220) U/L Total Protein (6.5-8.0) g/dL Albumin (3.5-5.0) g/dL Urine Blood (Negative) Urine Nitrite (Negative) Ur Leukocyte Esterase (Negative) Urine RBC (0-2) /HPF Urine WBC (0-5) /HPF Crossmatch Short CBC 05/13/25 05/14/25 05/14/25 Range/Units 18:56 04:09 08:52 WBC 3.1 L 15.6 H 18.0 H (4.8-10.8) X10*3/uL Hgb 7.2 L D 7.4 L 7.1 L (12.0-16.0) g/dl Hct 24.0 L D 23.6 L 23.2 L (37.0-47.0) % Plt Count 191 155 L 171 (160-400) X10*3/uL BMP 05/13/25 05/14/25 18:56 04:09 Sodium 142 139 Potassium 4.1 3.8 Chloride 107 106 Carbon Dioxide 25 24 BUN 20 H 21 H Creatinine 1.14 1.05 Calcium 9.4 D 8.6 D Liver Function 05/13/25 05/14/25 Range/Units 18:56 04:09 Total Bilirubin 0.5 0.7 (0.0-1.0) mg/dL AST 35 H 82 H (5-31) U/L ALT 12 37 H (0-31) U/L Alkaline Phosphatase 68 112 (39-117) U/L Albumin 3.5 2.9 L (3.5-5.0) g/dL Urine 05/13/25 Range/Units 20:10 Urine Color Yellow Urine Appearance Clear Urine pH 7.0 (5.0-9.0) Ur Specific [place] 1.010 (1.005-1.025) Urine Protein Trace (Neg-Trace) mg/dL Urine Glucose (UA) Negative (Negative) mg/dL Imaging Abdomen CT scan report/results: report reviewed and image reviewed CT scan - pelvis: report reviewed and image reviewed Additional studies: Date of Service: 05/13/25 Reason for Exam: pain, fever CLINICAL HISTORY: pain, fever CT abdomen and pelvis with contrast Comparison: None provided Findings: No consolidation or effusion. Spleen, liver, gallbladder, pancreas and right kidney are unremarkable. Left kidney demonstrates mild hydronephrosis. There is dilatation of the left ureter and at the left ureterovesical junction there is a 5 mm stone. There is uroepithelial enhancement of the distal left ureter.Normal enhancement of both kidneys. No bowel obstruction, pneumoperitoneum, or pneumatosis. There are scattered colonic diverticula, however no evidence of diverticulitis. Appendix not definitively identified. Uterus and adnexa are unremarkable. No ascites. No acute fracture. No lytic or blastic bone lesions. IMPRESSION: Mild left hydroureteronephrosis secondary to 5 mm stone of the left ureterovesical junction. Uroepithelial enhancement of the distal left ureter could indicate upper tract infection. Assessment and Plan (1) UTI (urinary tract infection): Status: Acute (2) Acute unilateral obstructive uropathy: Status: Acute (3) Left ureteral stone: Status: Acute Plan Pt clinically improved, with IVF's, afebrile, pain less. Plan left ureteral stent, retrograde. Procedures Date of Service Date of Service: 05/14/25
--- NOTE | 2025-05-14 09:37 | HO.NURTONUR ---
Pt presented to ED for c/o fever and urinary frequency. bld cxs drawn and abx given. Uro consulted for 5mm left kidney stone. Pt to go to short stay for ureteral stent placement. VSS. Pt with 20g Bilat AC. LR@100ml/hr. Ambulates independently. VSS. NPO since 05/13 afternoon.
--- NOTE | 2025-05-14 09:57 | P.CONAN_ITS ---
Documented by User: Sophie Sheppard NP 05/14/25 10:05 HPI - Anesthesia Eval Consult details Narrative: 80 yr old female for left cystoscopy, stent placement Arrived to ED 05/13 with fever, sepsis 2/2 UPJ stone with obstruction. Acute anemia: currently being worked up for anemia outpt, Hgb 7.2, received 1 unit PRBCs; guaic stool neg CKD 3: was on Farxiga but stopped recently. COUNT INCLUDES [facility] Active Problems Active Problems: All Active Problems Left ureteral stone (Acute) UTI (urinary tract infection) (Acute) Acute unilateral obstructive uropathy (Acute) Anemia (Acute) Sepsis (Acute) URI (upper respiratory infection) (Acute) Enlarged thyroid (Acute) Varicose veins of right lower extremity with inflammation (Acute) CKD (chronic kidney disease) stage 3, GFR 30-59 ml/min (Acute) Hypokalemia (Acute) SOB (shortness of breath) (Acute) Edema (Acute) Bug bite (Acute) Venous insufficiency (Acute) Sciatica (Acute) Diverticulosis (Acute) Anemia (Acute) Fatigue (Acute) Type 2 diabetes mellitus (Acute) Hyperlipidemia (Acute) HTN (hypertension) (Acute) GERD (gastroesophageal reflux disease) (Acute) Normal colonoscopy (Acute) Past Medical History Medical History CKD (chronic kidney disease) stage 3, GFR 30-59 ml/min Hypokalemia SOB (shortness of breath) Venous insufficiency Sciatica Diverticulosis Anemia Fatigue GERD (gastroesophageal reflux disease) Normal colonoscopy Chronic lower back pain Hyperlipidemia Left shoulder tendinitis HTN (hypertension) Type 2 diabetes mellitus Family History Family History Father No problems noted. Mother Diabetes mellitus Sister Colorectal cancer Afib Surgical History Surgical History H/O colonoscopy History of Problems with Anesthesia: No Social History Social History Household Members: Family Housing: House Are you a primary care program resident to a significant other at home: No Do you presently have visiting nurse or other home services: No Alcohol intake: never Patient Tobacco Use Status: Never used Tobacco Smoked in Last 30 Days: No e-Cigarette/Vaping Use: Never Used Second Hand Smoke Exposure: No Use of substances other than those prescribed or required for medical reasons: No Have you been hit, kicked, punched, or otherwise hurt by someone within the past year? 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 Cognitive needs: No Hearing needs: No Vision needs: Yes Meds Allergies Allergy/AdvReac Type Severity Reaction Status Date / Time erythromycin base Allergy Intermediate Abdominal Verified 05/13/25 18:42 Pain potassium chloride AdvReac Intermediate Abdominal Verified 05/13/25 18:42 Pain Active Medications: Current Medications Acetaminophen (Acetaminophen 325 Mg Tablet) 650 mg PO Q6H PRN PRN Reason: Pain, Mild 1-3,fever,headache Calcium Carbonate (Calcium Carbonate 750 Mg Tab.Chew) 750 mg PO Q4H PRN PRN Reason: Heartburn Ferrous Sulfate (Ferrous Sulfate 324 Mg Tablet.Dr) 324 mg PO DAILY [facility] Last Admin: 05/14/25 09:54 Dose: Not Given Heparin Sodium (Porcine) (Heparin Sodium,Porcine 5,000 Unit/Ml Vial) 5,000 unit SUBCUT Q8H [facility] Last Admin: 05/14/25 09:27 Dose: Not Given Hydromorphone HCl (Hydromorphone Hcl 1 Mg/Ml Syringe) 0.5 mg IVPUSH Q4H PRN; Protocol PRN Reason: Breakthrough Pain Lactated Ringer's (Lr) 1,000 mls @ 100 mls/hr IVCONT .Q10H [facility] Last Admin: 05/14/25 09:53 Dose: Not Given Ceftriaxone Sodium 1 gm/ (Sodium Chloride) 50 mls @ 100 mls/hr IV Q24H [facility] Magnesium Hydroxide (Milk Of Magnesia 30 Ml Oral.Susp) 30 ml PO DAILY PRN PRN Reason: Constipation Melatonin (Melatonin 3 Mg Tablet) 6 mg PO BEDTIME PRN PRN Reason: Insomnia Sertraline HCl (Sertraline Hcl 50 Mg Tablet) 50 mg PO DAILY [facility] Last Admin: 05/14/25 09:54 Dose: Not Given Sodium Chloride (0.9 % Sodium Chloride Flush 3 Ml Syringe) 3 ml IVFLUSH QSHIFT [facility] Last Admin: 05/14/25 08:38 Dose: Not Given Vitamin D (Cholecalciferol (Vitamin D3) 25 Mcg Tablet) 50 mcg PO DAILY [facility] Last Admin: 05/14/25 09:54 Dose: Not Given Home Medications ?Medication ?Instructions ?Recorded ?Confirmed ?Last Taken ?Type cholecalciferol (vitamin D3) 50 50 mcg PO DAILY 05/14/25 05/13/25 History mcg (2,000 unit) capsule dupilumab 300 mg/2 mL subcutaneous 300 mg subcut Q14D 05/14/25 05/14/25 04/11/25 History pen injector (Dupixent) ferrous sulfate 325 mg (65 mg 325 mg PO DAILY 05/14/25 05/14/25 05/13/25 History iron) tablet (FeroSul) Exam Height,Weight and Vital Signs: Height 5 ft 2 in Weight 55.2 kg Last Vital Signs Temp 98 F 05/14/25 08:00 Pulse 85 05/14/25 08:00 Resp 18 05/14/25 08:00 BP 108/59 L 05/14/25 08:00 Pulse Ox 97 05/14/25 08:00 O2 Del Method Room Air 05/14/25 08:00 Pertinent Lab Results Pertinent Lab Results: Laboratory Tests 05/13/25 05/13/25 05/13/25 18:56 18:59 19:17 WBC 3.1 L RBC 2.99 L D Hgb 7.2 L D Hct 24.0 L D MCV 80.3 MCH 24.1 L MCHC 30.0 L RDW 15.9 Plt Count 191 MPV 7.8 L Immature Gran % (Auto) 0.6 H Neut % (Auto) 88.2 H Lymph % (Auto) 10.3 L [place] % (Auto) 0.3 L Eos % (Auto) 0.3 Baso % (Auto) 0.3 Lymph # (Auto) 0.3 L [place] # (Auto) 0.0 L Eos # (Auto) 0.0 Baso # (Auto) 0.0 Abs Immat Gran (auto) 0.02 Absolute Neuts (auto) 2.8 Absolute Nucleated RBC 0.000 Nucleated RBC % (auto) 0.0 Neutrophils % (Manual) Band Neutrophils % Lymphocytes % (Manual) Monocytes % (Manual) Abs Neuts (Manual) Lymphocytes # (Manual) Monocytes # (Manual) Platelet Estimate Large Platelets Plt Morphology Comment RBC Morphology Hypochromasia Macrocytosis Ovalocytes [place]aura Cells Absolute Retic Percent Retic Immature Retic Fraction Retic Hgb Equivalent Sodium 142 Potassium 4.1 Chloride 107 Carbon Dioxide 25 Anion Gap 14 BUN 20 H Creatinine 1.14 Estim Creat Clear Calc 32.1 Estimated GFR 46 Random Glucose 129 H Haptoglobin Lactic Acid 2.6 H* Lactic Acid F/U @ 2Hr Lactic Acid F/U @ 4Hr Calcium 9.4 D Iron TIBC % Saturation Unsat Iron Binding Total Bilirubin 0.5 AST 35 H ALT 12 Alkaline Phosphatase 68 Lactate Dehydrogenase Total Protein 7.4 Albumin 3.5 Lipase 47 Vitamin B12 Folate Urine Color Urine Appearance Urine pH Ur Specific [place] Urine Protein Urine Glucose (UA) Urine Ketones Urine Blood Urine Nitrite Ur Leukocyte Esterase Urine RBC Urine WBC Ur Squamous Epith Cells Urine Bacteria Hyaline Casts Stool Occult Blood Influenza Type A (PCR) NEGATIVE Influenza Type B (PCR) NEGATIVE RSV RNA Qual (PCR) NEGATIVE SARS-CoV-2 RNA (RT-PCR) NEGATIVE Blood Type B Positive Antibody Screen NEGATIVE Crossmatch See Detail 05/13/25 05/13/25 05/13/25 20:10 20:12 21:12 WBC RBC Hgb Hct MCV MCH MCHC RDW Plt Count MPV Immature Gran % (Auto) Neut % (Auto) Lymph % (Auto) [place] % (Auto) Eos % (Auto) Baso % (Auto) Lymph # (Auto) [place] # (Auto) Eos # (Auto) Baso # (Auto) Abs Immat Gran (auto) Absolute Neuts (auto) Absolute Nucleated RBC Nucleated RBC % (auto) Neutrophils % (Manual) Band Neutrophils % Lymphocytes % (Manual) Monocytes % (Manual) Abs Neuts (Manual) Lymphocytes # (Manual) Monocytes # (Manual) Platelet Estimate Large Platelets Plt Morphology Comment RBC Morphology Hypochromasia Macrocytosis Ovalocytes Rosaura Cells Absolute Retic Percent Retic Immature Retic Fraction Retic Hgb Equivalent Sodium Potassium Chloride Carbon Dioxide Anion Gap BUN Creatinine Estim Creat Clear Calc Estimated GFR Random Glucose Haptoglobin Lactic Acid Lactic Acid F/U @ 2Hr 2.1 H* Lactic Acid F/U @ 4Hr Calcium Iron TIBC % Saturation Unsat Iron Binding Total Bilirubin AST ALT Alkaline Phosphatase Lactate Dehydrogenase Total Protein Albumin Lipase Vitamin B12 Folate Urine Color Yellow Urine Appearance Clear Urine pH 7.0 Ur Specific [place] 1.010 Urine Protein Trace Urine Glucose (UA) Negative Urine Ketones Negative Urine Blood Small (1+) H Urine Nitrite Positive H Ur Leukocyte Esterase Large (3+) H Urine RBC 6-10 H Urine WBC 21-50 H Ur Squamous Epith Cells 0-2 Urine Bacteria 1+ Hyaline Casts 0-2 Stool Occult Blood NEGATIVE Influenza Type A (PCR) Influenza Type B (PCR) RSV RNA Qual (PCR) SARS-CoV-2 RNA (RT-PCR) Blood Type Antibody Screen Crossmatch 05/13/25 05/13/25 05/14/25 22:17 23:41 04:09 WBC 15.6 H RBC 2.96 L Hgb 7.4 L Hct 23.6 L MCV 79.7 L MCH 25.0 L MCHC 31.4 RDW 15.9 Plt Count 155 L MPV 8.2 L Immature Gran % (Auto) Cancelled Neut % (Auto) Cancelled Lymph % (Auto) Cancelled [place] % (Auto) Cancelled Eos % (Auto) Cancelled Baso % (Auto) Cancelled Lymph # (Auto) Cancelled [place] # (Auto) Cancelled Eos # (Auto) Cancelled Baso # (Auto) Cancelled Abs Immat Gran (auto) Cancelled Absolute Neuts (auto) Cancelled Absolute Nucleated RBC 0.000 Nucleated RBC % (auto) 0.0 Neutrophils % (Manual) 78 H Band Neutrophils % 19 H Lymphocytes % (Manual) 2 L Monocytes % (Manual) 1 L Abs Neuts (Manual) 15.1 H Lymphocytes # (Manual) 0.3 L Monocytes # (Manual) 0.2 Platelet Estimate SLIGHTLY DECREASED Large Platelets PRESENT Plt Morphology Comment NOTED RBC Morphology NOTED Hypochromasia 1+ (5-14) Macrocytosis 1+ (5-14) Ovalocytes 1+ (5-14) Rosaura Cells 2+ (3-5) Absolute Retic Percent Retic Immature Retic Fraction Retic Hgb Equivalent Sodium 139 Potassium 3.8 Chloride 106 Carbon Dioxide 24 Anion Gap 13 BUN 21 H Creatinine 1.05 Estim Creat Clear Calc 34.9 Estimated GFR 51 Random Glucose 110 Haptoglobin Lactic Acid Lactic Acid F/U @ 2Hr Lactic Acid F/U @ 4Hr 1.3 Calcium 8.6 D Iron 14 L TIBC 145 L % Saturation 10 L Unsat Iron Binding 131 Total Bilirubin 0.7 AST 82 H ALT 37 H Alkaline Phosphatase 112 Lactate Dehydrogenase Total Protein 6.2 L Albumin 2.9 L Lipase Vitamin B12 319 Folate 7.2 Urine Color Urine Appearance Urine pH Ur Specific [place] Urine Protein Urine Glucose (UA) Urine Ketones Urine Blood Urine Nitrite Ur Leukocyte Esterase Urine RBC Urine WBC Ur Squamous Epith Cells Urine Bacteria Hyaline Casts Stool Occult Blood Influenza Type A (PCR) Influenza Type B (PCR) RSV RNA Qual (PCR) SARS-CoV-2 RNA (RT-PCR) Blood Type Antibody Screen Crossmatch 05/14/25 08:52 WBC 18.0 H RBC 2.91 L Hgb 7.1 L Hct 23.2 L MCV 79.7 L MCH 24.4 L MCHC 30.6 L RDW 16.0 Plt Count 171 MPV 8.4 L Immature Gran % (Auto) Cancelled Neut % (Auto) Cancelled Lymph % (Auto) Cancelled [place] % (Auto) Cancelled Eos % (Auto) Cancelled Baso % (Auto) Cancelled Lymph # (Auto) Cancelled [place] # (Auto) Cancelled Eos # (Auto) Cancelled Baso # (Auto) Cancelled Abs Immat Gran (auto) Cancelled Absolute Neuts (auto) Cancelled Absolute Nucleated RBC 0.000 Nucleated RBC % (auto) 0.0 Neutrophils % (Manual) Band Neutrophils % Lymphocytes % (Manual) Monocytes % (Manual) Abs Neuts (Manual) Lymphocytes # (Manual) Monocytes # (Manual) Platelet Estimate Large Platelets Plt Morphology Comment RBC Morphology Hypochromasia Macrocytosis Ovalocytes [place] Cells Absolute Retic 0.035 Percent Retic 1.2 Immature Retic Fraction 14.7 Retic Hgb Equivalent 23.7 L Sodium Potassium Chloride Carbon Dioxide Anion Gap BUN Creatinine Estim Creat Clear Calc Estimated GFR Random Glucose Haptoglobin 198 Lactic Acid Lactic Acid F/U @ 2Hr Lactic Acid F/U @ 4Hr Calcium Iron TIBC % Saturation Unsat Iron Binding Total Bilirubin AST ALT Alkaline Phosphatase Lactate Dehydrogenase 296 H Total Protein Albumin Lipase Vitamin B12 Folate Urine Color Urine Appearance Urine pH Ur Specific [place] Urine Protein Urine Glucose (UA) Urine Ketones Urine Blood Urine Nitrite Ur Leukocyte Esterase Urine RBC Urine WBC Ur Squamous Epith Cells Urine Bacteria Hyaline Casts Stool Occult Blood Influenza Type A (PCR) Influenza Type B (PCR) RSV RNA Qual (PCR) SARS-CoV-2 RNA (RT-PCR) Blood Type Antibody Screen Crossmatch Narrative Narrative: EKG done Sepsis protocol Vent. Rate : 121 BPM Atrial Rate : 121 BPM P-R Int : 152 ms QRS Dur : 68 ms QT Int : 322 ms P-R-T Axes : 54 41 49 degrees QTcB Int : 457 ms Sinus tachycardia with occasional Premature ventricular complexes Nonspecific ST abnormality Abnormal ECG When compared with ECG of 07-May-2021 16:54, Premature ventricular complexes are now Present Vent. rate has increased by 58 bpm T wave amplitude has decreased in Lateral leads Chest xray 05/13/25: no acute cardiopulmonary findings CT abd/pelvis 05/13/25 IMPRESSION: Mild left hydroureteronephrosis secondary to 5 mm stone of the left ureterovesical junction. Uroepithelial enhancement of the distal left ureter could indicate upper tract infection. Assessment and Plan Final Anesthetic Review History of Problems with Anesthesia: No Documented by User: Keiry Dee MD 05/14/25 12:49 [facility] Past Medical History Medical History CKD (chronic kidney disease) stage 3, GFR 30-59 ml/min Hypokalemia SOB (shortness of breath) Venous insufficiency Sciatica Diverticulosis Anemia Fatigue GERD (gastroesophageal reflux disease) Normal colonoscopy Chronic lower back pain Hyperlipidemia Left shoulder tendinitis HTN (hypertension) Type 2 diabetes mellitus Family History Family History Father No problems noted. Mother Diabetes mellitus Sister Colorectal cancer Afib Family history of problems with anesthesia: No Surgical History Surgical History H/O colonoscopy Social History Social History Household Members: Family Housing: House Are you a primary care program resident to a significant other at home: No Do you presently have visiting nurse or other home services: No Alcohol intake: never Patient Tobacco Use Status: Never used Tobacco Smoked in Last 30 Days: No e-Cigarette/Vaping Use: Never Used Second Hand Smoke Exposure: No Use of substances other than those prescribed or required for medical reasons: No Have you been hit, kicked, punched, or otherwise hurt by someone within the past year? 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 Cognitive needs: No Hearing needs: No Vision needs: Yes Meds Allergies Allergy/AdvReac Type Severity Reaction Status Date / Time erythromycin base Allergy Intermediate Abdominal Verified 05/13/25 18:42 Pain potassium chloride AdvReac Intermediate Abdominal Verified 05/13/25 18:42 Pain Home Medications ?Medication ?Instructions ?Recorded ?Confirmed ?Last Taken ?Type cholecalciferol (vitamin D3) 50 50 mcg PO DAILY 05/14/25 05/13/25 History mcg (2,000 unit) capsule dupilumab 300 mg/2 mL subcutaneous 300 mg subcut Q14D 05/14/25 05/14/25 04/11/25 History pen injector (Dupixent) ferrous sulfate 325 mg (65 mg 325 mg PO DAILY 05/14/25 05/14/25 05/13/25 History iron) tablet (FeroSul) Exam Airway Mallampati Class: III TM Dist: >3cm Neck ROM: Limited Heart: rrr Lungs: cta Assessment and Plan Assessment Anesthesia Assessment: Anesthesia Plan Discussed and Chart Reviewed Final Anesthetic Review Family History of Problems with Anesthesia: No NPO: Yes ASA Class: III Final Preanesthetic Review: No Changes in Pt Med Stat, Meds/Allgs Chart Reviewed, Consent Obtained/Reviewed and Anes Risks/Benef Reviewed Patient Risk: Intermediate Procedure Risk: Low Anesthetic Plan Anesthetic Plan: GA and Agree w/ Assess. and Plan Disposition: Standard PACU
[2025-05-14 10:34] LABS: Band Neutrophils Percent 22 % (3-5); Lymphocytes Absolute Manual 0.7 X10*3/uL (1.2-4.9); Lymphocytes Percent Manual 4 % (20-40); Neutrophils Absolute Manual 17.3 X10*3/uL (2.0-8.3); Neutrophils Percent Manual 74 % (45-73)
[2025-05-14 10:39] LABS: Hypochromasia 1+ (5-14) /OIF; Ovalocytes 1+ (5-14) /OIF; RBC Morphology NOTED
--- NOTE | 2025-05-14 11:05 | PC.NURSE ---
Dr. Taveras aware of POC 70. patient asymptomatic. no new orders at this time. will continue to monitor.
[2025-05-14 11:07] LABS: Glucose, Whole Blood 70 mg/dL (60-115)
[2025-05-14] MEDS: Lactated Ringers 1,000 ML 80 ML IVCONT (11:08)
[2025-05-14 13:08] LABS: Glucose, Whole Blood 69 mg/dL (60-115)
[2025-05-14] MEDS: Dextrose 5 % 100 ML 200 ML IV (13:15)
--- NOTE | 2025-05-14 14:00 | P.OP_ITS ---
Operative Note Operative Note Date of Service: 05/14/25 Narrative: PreOperative Diagnosis:?? left UVJ stone Post Operative Diagnosis:?? ?Left UVJ stone, Left hydroureter Procedure: Cystoscopy, retrograde Left stent insertion, size 7fr by 24cm Surgeon:?Dr Bill Elder Anesthesia:? General Findings: Impacted left ureteral stone Procedure: After informed consent was verified the patient was brought to the operating placed on the OR table in supine position.? General Anesthesia was administered per protocol.? The patient was placed in lithotomy position, prepped and draped in the usual sterile fashion.? Safety pause time-out and side of surgery confirmed.? Antibiotics confirmed. A 22 [place] cystoscope was inserted transurethrally. The bladder was visualized.? Both ureteric orifices were in normal position. The? left ureteric orifice was cannulated,? left a retrograde examination was performed, there was a filling defect distally and dilatation proximal. There was difficulty passing the guide wire, the stone was impacted, with some manipulation the sensor guidewire was placed up to the level of the renal pelvis under fluoroscopy. A 7 fr by 24 cm ureteral stent was passed over the guide wire under fluoroscopic guidance. The guide wire was removed. The bladder was emptied.? The rigid cystoscope was removed. ? The patient tolerated the procedure well and was brought to the recovery room in stable condition. Complications: None EBL: minimal (<5 mL) Drains: Ureteral stent as dictated above
--- NOTE | 2025-05-14 14:16 | P.PNIM_ITS ---
Subjective Subjective Date of Service: 05/14/25 Interval History: weakness Physical Exam 2 Exam: Exam: General: AO X 3, frail, ill-appearing Resp: CTA bilateral, no accessory muscles used CVS: S1,S2,RRR GI: soft, non tender, non distended Neuro: motor grossly intact, alert Psych: appropriate affect, appropriate insight Vital Signs: Vital Signs: Last Vital Signs Temp 97 F 05/14/25 14:00 Pulse 91 05/14/25 14:10 Resp 16 05/14/25 14:10 BP 100/45 L 05/14/25 14:10 Pulse Ox 100 05/14/25 14:10 O2 Del Method Simple Mask 05/14/25 14:10 O2 Flow Rate 6 05/14/25 14:10 BMI result Body Mass Index 22.3 Objective Data Active Medications Acetaminophen (Acetaminophen 325 Mg Tablet) 650 mg PO Q6H PRN PRN Reason: Pain, Mild 1-3,fever,headache Calcium Carbonate (Calcium Carbonate 750 Mg Tab.Chew) 750 mg PO Q4H PRN PRN Reason: Heartburn Fentanyl (Fentanyl Citrate/Pf 100 Mcg/2 Ml Vial) 25 mcg IVPUSH Q5M PRN PRN Reason: Pain, Moderate to Severe (Pain Scale 4-10) Stop: 05/14/25 18:49 Ferrous Sulfate (Ferrous Sulfate 324 Mg Tablet.Dr) 324 mg PO DAILY [facility] Last Admin: 05/14/25 09:54 Dose: Not Given Documented By: KEVIN Non-Admin Reason: NPO Heparin Sodium (Porcine) (Heparin Sodium,Porcine 5,000 Unit/Ml Vial) 5,000 unit SUBCUT Q8H [facility] Last Admin: 05/14/25 09:27 Dose: Not Given Documented By: KEVIN Non-Admin Reason: Off Unit: Surgery Hydromorphone HCl (Hydromorphone Hcl 1 Mg/Ml Syringe) 0.5 mg IVPUSH Q4H PRN; Protocol PRN Reason: Breakthrough Pain Lactated Ringer's (Lr) 1,000 mls @ 100 mls/hr IVCONT .Q10H [facility] Last Admin: 05/14/25 09:53 Dose: Not Given Documented By: KEVIN Non-Admin Reason: IV Running Ceftriaxone Sodium 1 gm/ (Sodium Chloride) 50 mls @ 100 mls/hr IV Q24H [facility] Lactated Ringer's (Lr) 1,000 mls @ 80 mls/hr IVCONT .[id number] [facility] Last Admin: 05/14/25 11:08 Dose: 80 mls/hr Documented By: GAYE Dextrose (D5w) 100 mls @ 0 mls/hr IV .Q0M PRN PRN Reason: Per Protocol Last Admin: 05/14/25 13:15 Dose: 200 mls/hr Documented By: GAYE Magnesium Hydroxide (Milk Of Magnesia 30 Ml Oral.Susp) 30 ml PO DAILY PRN PRN Reason: Constipation Melatonin (Melatonin 3 Mg Tablet) 6 mg PO BEDTIME PRN PRN Reason: Insomnia Naloxone HCl (Naloxone Hcl 0.4 Mg/Ml Vial) 0.04 mg IVPUSH Q5M PRN PRN Reason: Excessive sedation or RR < 8 Ondansetron HCl (Ondansetron Hcl 4 Mg/2 Ml Vial) 4 mg IVPUSH ONCE PRN PRN Reason: Nausea and Vomiting Stop: 05/14/25 18:49 Sertraline HCl (Sertraline Hcl 50 Mg Tablet) 50 mg PO DAILY [facility] Last Admin: 05/14/25 09:54 Dose: Not Given Documented By: KEVIN Non-Admin Reason: NPO Sodium Chloride (0.9 % Sodium Chloride Flush 3 Ml Syringe) 3 ml IVFLUSH QSHIFT [facility] Last Admin: 05/14/25 08:38 Dose: Not Given Documented By: KEVNI Non-Admin Reason: IV Running Vitamin D (Cholecalciferol (Vitamin D3) 25 Mcg Tablet) 50 mcg PO DAILY [facility] Last Admin: 05/14/25 09:54 Dose: Not Given Documented By: KEVIN Non-Admin Reason: NPO Labs 05/14/25 08:52 05/14/25 04:09 Labs: Laboratory Results - last 24 hr 05/13/25 05/13/25 05/13/25 18:56 18:59 19:17 MCV 80.3 MCH 24.1 L MCHC 30.0 L RDW 15.9 Plt Count 191 MPV 7.8 L Immature Gran % (Auto) 0.6 H Neut % (Auto) 88.2 H Lymph % (Auto) 10.3 L [place] % (Auto) 0.3 L Eos % (Auto) 0.3 Baso % (Auto) 0.3 Lymph # (Auto) 0.3 L [place] # (Auto) 0.0 L Eos # (Auto) 0.0 Baso # (Auto) 0.0 Abs Immat Gran (auto) 0.02 Absolute Neuts (auto) 2.8 Absolute Nucleated RBC 0.000 Nucleated RBC % (auto) 0.0 Neutrophils % (Manual) Band Neutrophils % Lymphocytes % (Manual) Monocytes % (Manual) Abs Neuts (Manual) Lymphocytes # (Manual) Monocytes # (Manual) Platelet Estimate Large Platelets Plt Morphology Comment RBC Morphology Hypochromasia Macrocytosis Ovalocytes [place] Cells Absolute Retic Percent Retic Immature Retic Fraction Retic Hgb Equivalent Anion Gap 14 Estim Creat Clear Calc 32.1 Estimated GFR 46 POC Glucose Random Glucose 129 H Haptoglobin Lactic Acid 2.6 H* Lactic Acid F/U @ 2Hr Lactic Acid F/U @ 4Hr Calcium 9.4 D Iron TIBC % Saturation Unsat Iron Binding Total Bilirubin 0.5 AST 35 H ALT 12 Alkaline Phosphatase 68 Lactate Dehydrogenase Total Protein 7.4 Albumin 3.5 Lipase 47 Vitamin B12 Folate Urine Color Urine Appearance Urine pH Ur Specific [place] Urine Protein Urine Glucose (UA) Urine Ketones Urine Blood Urine Nitrite Ur Leukocyte Esterase Urine RBC Urine WBC Ur Squamous Epith Cells Urine Bacteria Hyaline Casts Stool Occult Blood Influenza Type A (PCR) NEGATIVE Influenza Type B (PCR) NEGATIVE RSV RNA Qual (PCR) NEGATIVE SARS-CoV-2 RNA (RT-PCR) NEGATIVE Blood Type B Positive Antibody Screen NEGATIVE Crossmatch See Detail 05/13/25 05/13/25 05/13/25 20:10 20:12 21:12 MCV MCH MCHC RDW Plt Count MPV Immature Gran % (Auto) Neut % (Auto) Lymph % (Auto) [place] % (Auto) Eos % (Auto) Baso % (Auto) Lymph # (Auto) [place] # (Auto) Eos # (Auto) Baso # (Auto) Abs Immat Gran (auto) Absolute Neuts (auto) Absolute Nucleated RBC Nucleated RBC % (auto) Neutrophils % (Manual) Band Neutrophils % Lymphocytes % (Manual) Monocytes % (Manual) Abs Neuts (Manual) Lymphocytes # (Manual) Monocytes # (Manual) Platelet Estimate Large Platelets Plt Morphology Comment RBC Morphology Hypochromasia Macrocytosis Ovalocytes Rosaura Cells Absolute Retic Percent Retic Immature Retic Fraction Retic Hgb Equivalent Anion Gap Estim Creat Clear Calc Estimated GFR POC Glucose Random Glucose Haptoglobin Lactic Acid Lactic Acid F/U @ 2Hr 2.1 H* Lactic Acid F/U @ 4Hr Calcium Iron TIBC % Saturation Unsat Iron Binding Total Bilirubin AST ALT Alkaline Phosphatase Lactate Dehydrogenase Total Protein Albumin Lipase Vitamin B12 Folate Urine Color Yellow Urine Appearance Clear Urine pH 7.0 Ur Specific [place] 1.010 Urine Protein Trace Urine Glucose (UA) Negative Urine Ketones Negative Urine Blood Small (1+) H Urine Nitrite Positive H Ur Leukocyte Esterase Large (3+) H Urine RBC 6-10 H Urine WBC 21-50 H Ur Squamous Epith Cells 0-2 Urine Bacteria 1+ Hyaline Casts 0-2 Stool Occult Blood NEGATIVE Influenza Type A (PCR) Influenza Type B (PCR) RSV RNA Qual (PCR) SARS-CoV-2 RNA (RT-PCR) Blood Type Antibody Screen Crossmatch 05/13/25 05/13/25 05/14/25 22:17 23:41 04:09 MCV 79.7 L MCH 25.0 L MCHC 31.4 RDW 15.9 Plt Count 155 L MPV 8.2 L Immature Gran % (Auto) Cancelled Neut % (Auto) Cancelled Lymph % (Auto) Cancelled [place] % (Auto) Cancelled Eos % (Auto) Cancelled Baso % (Auto) Cancelled Lymph # (Auto) Cancelled [place] # (Auto) Cancelled Eos # (Auto) Cancelled Baso # (Auto) Cancelled Abs Immat Gran (auto) Cancelled Absolute Neuts (auto) Cancelled Absolute Nucleated RBC 0.000 Nucleated RBC % (auto) 0.0 Neutrophils % (Manual) 78 H Band Neutrophils % 19 H Lymphocytes % (Manual) 2 L Monocytes % (Manual) 1 L Abs Neuts (Manual) 15.1 H Lymphocytes # (Manual) 0.3 L Monocytes # (Manual) 0.2 Platelet Estimate SLIGHTLY DECREASED Large Platelets PRESENT Plt Morphology Comment NOTED RBC Morphology NOTED Hypochromasia 1+ (5-14) Macrocytosis 1+ (5-14) Ovalocytes 1+ (5-14) Rosaura Cells 2+ (3-5) Absolute Retic Percent Retic Immature Retic Fraction Retic Hgb Equivalent Anion Gap 13 Estim Creat Clear Calc 34.9 Estimated GFR 51 POC Glucose Random Glucose 110 Haptoglobin Lactic Acid Lactic Acid F/U @ 2Hr Lactic Acid F/U @ 4Hr 1.3 Calcium 8.6 D Iron 14 L TIBC 145 L % Saturation 10 L Unsat Iron Binding 131 Total Bilirubin 0.7 AST 82 H ALT 37 H Alkaline Phosphatase 112 Lactate Dehydrogenase Total Protein 6.2 L Albumin 2.9 L Lipase Vitamin B12 319 Folate 7.2 Urine Color Urine Appearance Urine pH Ur Specific [place] Urine Protein Urine Glucose (UA) Urine Ketones Urine Blood Urine Nitrite Ur Leukocyte Esterase Urine RBC Urine WBC Ur Squamous Epith Cells Urine Bacteria Hyaline Casts Stool Occult Blood Influenza Type A (PCR) Influenza Type B (PCR) RSV RNA Qual (PCR) SARS-CoV-2 RNA (RT-PCR) Blood Type Antibody Screen Crossmatch 05/14/25 05/14/25 05/14/25 08:52 11:03 13:04 MCV 79.7 L MCH 24.4 L MCHC 30.6 L RDW 16.0 Plt Count 171 MPV 8.4 L Immature Gran % (Auto) Cancelled Neut % (Auto) Cancelled Lymph % (Auto) Cancelled [place] % (Auto) Cancelled Eos % (Auto) Cancelled Baso % (Auto) Cancelled Lymph # (Auto) Cancelled [place] # (Auto) Cancelled Eos # (Auto) Cancelled Baso # (Auto) Cancelled Abs Immat Gran (auto) Cancelled Absolute Neuts (auto) Cancelled Absolute Nucleated RBC 0.000 Nucleated RBC % (auto) 0.0 Neutrophils % (Manual) 74 H Band Neutrophils % 22 H Lymphocytes % (Manual) 4 L Monocytes % (Manual) Abs Neuts (Manual) 17.3 H Lymphocytes # (Manual) 0.7 L Monocytes # (Manual) Platelet Estimate NORMAL Large Platelets Plt Morphology Comment NORMAL RBC Morphology NOTED Hypochromasia 1+ (5-14) Macrocytosis Ovalocytes 1+ (5-14) [place] Cells Absolute Retic 0.035 Percent Retic 1.2 Immature Retic Fraction 14.7 Retic Hgb Equivalent 23.7 L Anion Gap Estim Creat Clear Calc Estimated GFR POC Glucose 70 69 Random Glucose Haptoglobin 198 Lactic Acid Lactic Acid F/U @ 2Hr Lactic Acid F/U @ 4Hr Calcium Iron TIBC % Saturation Unsat Iron Binding Total Bilirubin AST ALT Alkaline Phosphatase Lactate Dehydrogenase 296 H Total Protein Albumin Lipase Vitamin B12 Folate Urine Color Urine Appearance Urine pH Ur Specific [place] Urine Protein Urine Glucose (UA) Urine Ketones Urine Blood Urine Nitrite Ur Leukocyte Esterase Urine RBC Urine WBC Ur Squamous Epith Cells Urine Bacteria Hyaline Casts Stool Occult Blood Influenza Type A (PCR) Influenza Type B (PCR) RSV RNA Qual (PCR) SARS-CoV-2 RNA (RT-PCR) Blood Type Antibody Screen Crossmatch Microbiology Microbiology Results: Microbiology 05/13/25 20:35 Urine Culture - Preliminary Urine clean catch Culture too young to evaluate. 05/13/25 18:56 Blood Culture - Preliminary Blood - Venous Prelim: GNR Gram Stain only 05/13/25 18:59 Blood Culture - Preliminary Blood - Venous Prelim: GNR Gram Stain only Assessment and Plan (1) UTI (urinary tract infection): Status: Acute Plan 80F PMH HTN, DM, GERD, anemia, presented with weakness Sepsis due to acute urinary tract infection complicated by Gram-negative zelda bacteremia due to obstructing left ureteral stone Continue ceftriaxone, status post stent of the left ureter, follow up culture Diabetes Insulin sliding scale Mood disorder Sertraline DVT prophylaxis heparin subQ Full code reason for continued hospitalization: bacteremia Quality Stroke Does the patient have a stroke diagnosis?: No VTE Prior VTE?: No VTE Risk Level:: Medical - moderate - high VTE Device Contraindication: Treatment Not Indicated VTE Drug Contraindication: N/A - Med Ordered
[2025-05-14 14:33] LABS: Glucose, Whole Blood 88 mg/dL (60-115)
[2025-05-14 15:29] LABS: Glucose, Whole Blood 94 mg/dL (60-115)
--- NOTE | 2025-05-14 15:46 | MHC.CM.PN ---
IMM DELIVERED PT LIVES WITH HER SISTER WHO SHE ASSISTS (SISTER CURRENTLY AT [facility]) PT IS FUNCTIONALLY INDEPENDENT, +DRIVES. NO SERVICES/DME. + HCP ON FILE AT HER PCP OFFICE (NAMES HER NEPHEW) PCP DR. GORGE CHAMBERS DP: HOME , NO SERVICES IS THE GOAL. PT 'S NEPHEW WILL TRANSPORT HOME. CM WILL CONTINUE TO FOLLOW FOR ANY CHANGE TO DC PLAN/NEEDS.
[2025-05-14] MEDS: Lactated Ringers 1,000 ML 100 ML IVCONT (15:56)
[2025-05-14 20:10] LABS: Glucose, Whole Blood 183 mg/dL (60-115)
[2025-05-15] MEDS: Lactated Ringers 1,000 ML 100 ML IVCONT ×2 (02:21→16:15)
[2025-05-15 04:00] VITALS: BP 126/60; PULSE 78; RESP 14; TEMP 36.1; O2SAT 93
[2025-05-15 07:11] VITALS: BP 147/68; PULSE 76; RESP 16; TEMP 36.7; O2SAT 92
[2025-05-15 07:18] LABS: Glucose, Whole Blood 105 mg/dL (60-115)
[2025-05-15 07:27] LABS: Hematocrit 24.1 % (37.0-47.0); Hemoglobin 7.4 g/dl (12.0-16.0); Mean Corpuscular HGB Conc 30.7 g/dl (31.0-35.0); Mean Corpuscular Hemoglobin 24.6 pg (27.0-33.0); Mean Corpuscular Volume 80.1 fL (80.0-98.0); NRBC Abs Auto 0.000 X10*3/uL (0.0-0.012); NRBC Pct Auto 0.0 /100WBC (0.0-0.2); Platelet Count 187 X10*3/uL (160-400); Red Blood Count 3.01 X10*6/uL (4.20-5.50); White Blood Count 17.2 X10*3/uL (4.8-10.8)
[2025-05-15 07:44] LABS: Anion Gap 11 (12-20); Blood Urea Nitrogen 25 mg/dL (9-16); Calcium 8.7 mg/dL (8.4-10.2); Carbon Dioxide 25 mmol/L (22-29); Chloride 109 mmol/L (96-108); Creatinine Clr Calc Pharmacy 34.5; Estimated Glomerular Filt Rate 50; Magnesium 1.9 mg/dL (1.6-2.6); Potassium 4.0 mmol/L (3.3-5.1); Sodium 141 mmol/L (135-145)
[2025-05-15] MEDS: 0.9 % Sodium Chloride Flush 3 ML SYRINGE IVFLUSH (07:59)
[2025-05-15] MEDS: Ferrous Sulfate 324 MG TABLET.DR PO (07:59)
--- NOTE | 2025-05-15 08:57 | P.PNIM_ITS ---
Subjective Subjective Date of Service: 05/15/25 Interval History: improving Physical Exam 2 Exam: Exam: General: AO X 3, frail, ill-appearing Resp: CTA bilateral, no accessory muscles used CVS: S1,S2,RRR GI: soft, non tender, non distended Neuro: motor grossly intact, alert Psych: appropriate affect, appropriate insight Vital Signs: Vital Signs: Last Vital Signs Temp 98.0 F 05/15/25 07:11 Pulse 76 05/15/25 07:11 Resp 16 05/15/25 07:11 BP 147/68 H 05/15/25 07:11 Pulse Ox 92 05/15/25 07:11 O2 Del Method Room Air 05/15/25 07:11 O2 Flow Rate 1 05/14/25 15:22 BMI result Body Mass Index 22.3 Objective Data Active Medications Acetaminophen (Acetaminophen 325 Mg Tablet) 650 mg PO Q6H PRN PRN Reason: Pain, Mild 1-3,fever,headache Calcium Carbonate (Calcium Carbonate 750 Mg Tab.Chew) 750 mg PO Q4H PRN PRN Reason: Heartburn Dextrose (Dextrose 50 % 25 Gm/50 Ml Syringe) 25 gm IVPUSH Q15M PRN; Protocol PRN Reason: per Hypoglycemia Standing Ord. Ferrous Sulfate (Ferrous Sulfate 324 Mg Tablet.Dr) 324 mg PO DAILY [facility] Last Admin: 05/15/25 07:59 Dose: 324 mg Documented By: DABNiyah Glucose (Glucose Gel 15 Gm Gel..Gram.) 15 gm PO Q15M PRN; Protocol PRN Reason: per Hypoglycemia Standing Ord. Heparin Sodium (Porcine) (Heparin Sodium,Porcine 5,000 Unit/Ml Vial) 5,000 unit SUBCUT Q8H [facility] Last Admin: 05/15/25 06:23 Dose: 5,000 unit Documented By: TRISTIAN Hydromorphone HCl (Hydromorphone Hcl 1 Mg/Ml Syringe) 0.5 mg IVPUSH Q4H PRN; Protocol PRN Reason: Breakthrough Pain Lactated Ringer's (Lr) 1,000 mls @ 100 mls/hr IVCONT .Q10H [facility] Last Admin: 05/15/25 02:21 Dose: 100 mls/hr Documented By: TRISTIAN Ceftriaxone Sodium 1 gm/ (Sodium Chloride) 50 mls @ 100 mls/hr IV Q24H [facility] Last Infusion: 05/14/25 19:00 Dose: Infused Documented By: TRISTIAN Dextrose (D5w) 100 mls @ 0 mls/hr IV .Q0M PRN PRN Reason: Per Protocol Last Infusion: 05/14/25 15:16 Dose: Infused Documented By: CATIE Insulin Human Lispro (Insulin Lispro 100 Unit/Ml 3 Ml Vial) 0 unit SUBCUT QIDACHS [facility]; Protocol Last Admin: 05/15/25 08:01 Dose: Not Given Documented By: CATIE Non-Admin Reason: No Insulin Coverage Magnesium Hydroxide (Milk Of Magnesia 30 Ml Oral.Susp) 30 ml PO DAILY PRN PRN Reason: Constipation Melatonin (Melatonin 3 Mg Tablet) 6 mg PO BEDTIME PRN PRN Reason: Insomnia Naloxone HCl (Naloxone Hcl 0.4 Mg/Ml Vial) 0.04 mg IVPUSH Q5M PRN PRN Reason: Excessive sedation or RR < 8 Sertraline HCl (Sertraline Hcl 50 Mg Tablet) 50 mg PO DAILY [facility] Last Admin: 05/15/25 07:59 Dose: 50 mg Documented By: CATIE Sodium Chloride (0.9 % Sodium Chloride Flush 3 Ml Syringe) 3 ml IVFLUSH QSHIFT [facility] Last Admin: 05/15/25 07:59 Dose: 3 ml Documented By: CATIE Vitamin D (Cholecalciferol (Vitamin D3) 25 Mcg Tablet) 50 mcg PO DAILY [facility] Last Admin: 05/15/25 07:58 Dose: 50 mcg Documented By: CATIE Labs 05/15/25 06:15 05/15/25 06:15 Labs: Laboratory Results - last 24 hr 05/14/25 05/14/25 05/14/25 08:52 11:03 13:04 MCV 79.7 L MCH 24.4 L MCHC 30.6 L RDW 16.0 Plt Count 171 MPV 8.4 L Immature Gran % (Auto) Cancelled Neut % (Auto) Cancelled Lymph % (Auto) Cancelled [place] % (Auto) Cancelled Eos % (Auto) Cancelled Baso % (Auto) Cancelled Lymph # (Auto) Cancelled [place] # (Auto) Cancelled Eos # (Auto) Cancelled Baso # (Auto) Cancelled Abs Immat Gran (auto) Cancelled Absolute Neuts (auto) Cancelled Absolute Nucleated RBC 0.000 Nucleated RBC % (auto) 0.0 Neutrophils % (Manual) 74 H Band Neutrophils % 22 H Lymphocytes % (Manual) 4 L Abs Neuts (Manual) 17.3 H Lymphocytes # (Manual) 0.7 L Platelet Estimate NORMAL Plt Morphology Comment NORMAL RBC Morphology NOTED Hypochromasia 1+ (5-14) Ovalocytes 1+ (5-14) Absolute Retic 0.035 Percent Retic 1.2 Immature Retic Fraction 14.7 Retic Hgb Equivalent 23.7 L Anion Gap Estim Creat Clear Calc Estimated GFR POC Glucose 70 69 Random Glucose Haptoglobin 198 Calcium Magnesium Lactate Dehydrogenase 296 H 05/14/25 05/14/25 05/14/25 14:27 15:25 20:00 MCV MCH MCHC RDW Plt Count MPV Immature Gran % (Auto) Neut % (Auto) Lymph % (Auto) [place] % (Auto) Eos % (Auto) Baso % (Auto) Lymph # (Auto) [place] # (Auto) Eos # (Auto) Baso # (Auto) Abs Immat Gran (auto) Absolute Neuts (auto) Absolute Nucleated RBC Nucleated RBC % (auto) Neutrophils % (Manual) Band Neutrophils % Lymphocytes % (Manual) Abs Neuts (Manual) Lymphocytes # (Manual) Platelet Estimate Plt Morphology Comment RBC Morphology Hypochromasia Ovalocytes Absolute Retic Percent Retic Immature Retic Fraction Retic Hgb Equivalent Anion Gap Estim Creat Clear Calc Estimated GFR POC Glucose 88 94 183 H Random Glucose Haptoglobin Calcium Magnesium Lactate Dehydrogenase 05/15/25 05/15/25 06:15 07:13 MCV 80.1 MCH 24.6 L MCHC 30.7 L RDW 16.3 H Plt Count 187 MPV 8.7 L Immature Gran % (Auto) Neut % (Auto) Lymph % (Auto) [place] % (Auto) Eos % (Auto) Baso % (Auto) Lymph # (Auto) [place] # (Auto) Eos # (Auto) Baso # (Auto) Abs Immat Gran (auto) Absolute Neuts (auto) Absolute Nucleated RBC 0.000 Nucleated RBC % (auto) 0.0 Neutrophils % (Manual) Band Neutrophils % Lymphocytes % (Manual) Abs Neuts (Manual) Lymphocytes # (Manual) Platelet Estimate Plt Morphology Comment RBC Morphology Hypochromasia Ovalocytes Absolute Retic Percent Retic Immature Retic Fraction Retic Hgb Equivalent Anion Gap 11 L Estim Creat Clear Calc 34.5 Estimated GFR 50 POC Glucose 105 Random Glucose 106 Haptoglobin Calcium 8.7 Magnesium 1.9 Lactate Dehydrogenase Microbiology Microbiology Results: Microbiology 05/13/25 18:59 Blood Culture - Preliminary Blood - Venous Gram negative zelda 05/13/25 18:56 Blood Culture - Preliminary Blood - Venous Gram negative zelda 05/13/25 20:35 Urine Culture - Preliminary Urine clean catch Culture too young to evaluate. Assessment and Plan (1) UTI (urinary tract infection): Status: Acute Plan 80F PMH HTN, DM, GERD, anemia, presented with weakness Sepsis due to acute urinary tract infection complicated by Gram-negative zelda bacteremia due to obstructing left ureteral stone Continue ceftriaxone, status post stent of the left ureter, follow up cultures Diabetes Insulin sliding scale Mood disorder Sertraline DVT prophylaxis heparin subQ Full code reason for continued hospitalization: bacteremia, awaiting cultures Quality Stroke Does the patient have a stroke diagnosis?: No VTE Prior VTE?: No VTE Risk Level:: Medical - moderate - high VTE Device Contraindication: Treatment Not Indicated VTE Drug Contraindication: N/A - Med Ordered
[2025-05-15 11:18] VITALS: BP 135/78; PULSE 77; RESP 16; TEMP 36.3; O2SAT 92
[2025-05-15 11:21] LABS: Glucose, Whole Blood 122 mg/dL (60-115)
--- NOTE | 2025-05-15 11:48 | P.CDIM_ITS ---
PROVIDER RESPONSE TEXT: To clarify, the appropriate diagnosis supported by the clinical indicators: Acute blood loss anemia QUERY TEXT: PHYSICIAN'S DOCUMENTATION REQUEST Date of Query: 05/15/2025 11:22 AM EST Patient Name: Aysha Wadsworth Admit Date: 05/14/2025 Dear Duglas Garsia MD, A review of the medical record indicates additional documentation may be needed. Please review below and update the documentation accordingly. Clinical Indicators: LABS: Iron 14 L Fatigue, weakness, anemia, hemoglobin dropped from 10 - 7 Transfuse 1 unit PRBC BP 102/50 99/50 L Based on the above, could you clarify which of the following is the most likely type of anemia you are evaluating, treating, and/or monitoring? Iron deficiency anemia Iron deficiency anemia secondary to chronic blood loss Iron deficiency anemia secondary to acute on chronic blood loss Acute blood loss anemia Other specified anemia Other (explain) Clinically unable to determine (explain) Thank you, Lizzie Noble, CCS, CDIS Use of terms such as suspected, likely, concern for, or probable (associated with a specific diagnosis that is being evaluated, monitored, or treated as if it exists) are acceptable and can be coded in the inpatient setting, when documented at the time of discharge. Please use your independent medical judgment in providing your response. THIS QUERY IS PART OF THE PERMANENT MEDICAL RECORD
--- NOTE | 2025-05-15 16:07 | P.PNUR_ITS ---
Subjective Subjective Date of Service: 05/17/25 Interval history: s/p left ureteral stent, for obstructing stone in distal ureter UTI Physical Exam 2 Vital Signs: Vital Signs: Last Vital Signs Temp 97.3 F 05/15/25 11:18 Pulse 77 05/15/25 11:18 Resp 16 05/15/25 11:18 BP 135/78 05/15/25 11:18 Pulse Ox 92 05/15/25 11:18 O2 Del Method Room Air 05/15/25 11:18 O2 Flow Rate 1 05/14/25 15:22 BMI result Body Mass Index 22.3 Urology Results Labs 05/16/25 05:48 05/16/25 05:48 Labs: Laboratory Results - last 24 hr 05/14/25 05/15/25 05/15/25 20:00 06:15 07:13 WBC 17.2 H RBC 3.01 L Hgb 7.4 L Hct 24.1 L MCV 80.1 MCH 24.6 L MCHC 30.7 L RDW 16.3 H Plt Count 187 MPV 8.7 L Absolute Nucleated RBC 0.000 Nucleated RBC % (auto) 0.0 Sodium 141 Potassium 4.0 Chloride 109 H Carbon Dioxide 25 Anion Gap 11 L BUN 25 H Creatinine 1.06 Estim Creat Clear Calc 34.5 Estimated GFR 50 POC Glucose 183 H 105 Random Glucose 106 Calcium 8.7 Magnesium 1.9 05/15/25 11:17 WBC RBC Hgb Hct MCV MCH MCHC RDW Plt Count MPV Absolute Nucleated RBC Nucleated RBC % (auto) Sodium Potassium Chloride Carbon Dioxide Anion Gap BUN Creatinine Estim Creat Clear Calc Estimated GFR POC Glucose 122 H Random Glucose Calcium Magnesium Progress Note: A&P Assessment and plan (1) UTI (urinary tract infection): Status: Acute (2) Acute unilateral obstructive uropathy: Status: Acute (3) Left ureteral stone: Status: Acute Plan blood c/s pending s/p left ureteral stent, pt will need outpatient follow up for stone management, to be arranged with urology office once UTI treated Time Spent With Patient Time: Total time managing care of this patient today ____ minutes. Progress Note: Quality Stroke Does the patient have a stroke diagnosis?: No
[2025-05-15 16:27] VITALS: BP 151/67; PULSE 86; RESP 14; TEMP 36.6; O2SAT 93
[2025-05-15 16:27] LABS: Glucose, Whole Blood 136 mg/dL (60-115)
[2025-05-15 19:23] VITALS: BP 145/89; PULSE 87; RESP 14; TEMP 36.6; O2SAT 92
[2025-05-15 20:59] LABS: Glucose, Whole Blood 114 mg/dL (60-115)
[2025-05-15 23:22] VITALS: BP 157/71; PULSE 92; RESP 14; TEMP 36.9; O2SAT 94
[2025-05-16 04:00] VITALS: BP 168/74; PULSE 84; RESP 16; TEMP 36.7; O2SAT 93
[2025-05-16 06:49] LABS: Hematocrit 24.9 % (37.0-47.0); Hemoglobin 7.6 g/dl (12.0-16.0); Mean Corpuscular HGB Conc 30.5 g/dl (31.0-35.0); Mean Corpuscular Hemoglobin 25.0 pg (27.0-33.0); Mean Corpuscular Volume 81.9 fL (80.0-98.0); NRBC Abs Auto 0.000 X10*3/uL (0.0-0.012); NRBC Pct Auto 0.0 /100WBC (0.0-0.2); Platelet Count 227 X10*3/uL (160-400); Red Blood Count 3.04 X10*6/uL (4.20-5.50); White Blood Count 10.8 X10*3/uL (4.8-10.8)
[2025-05-16 07:08] LABS: Anion Gap 10 (12-20); Blood Urea Nitrogen 19 mg/dL (9-16); Calcium 8.5 mg/dL (8.4-10.2); Carbon Dioxide 26 mmol/L (22-29); Chloride 110 mmol/L (96-108); Creatinine Clr Calc Pharmacy 43.1; Estimated Glomerular Filt Rate > 60; Potassium 4.0 mmol/L (3.3-5.1); Sodium 142 mmol/L (135-145)
[2025-05-16 07:12] VITALS: BP 166/76; PULSE 78; RESP 16; TEMP 36.5; O2SAT 93
[2025-05-16 07:16] LABS: Glucose, Whole Blood 97 mg/dL (60-115)
--- NOTE | 2025-05-16 08:38 | P.DS_ITS ---
DS: Providers Provider Date of Service: 05/16/25 Date of admission: 05/13/25 22:04 Date of discharge: 05/16/25 Primary care physician: Luma Lopez CNP Consults: 05/13/25 22:04 Consult to Hematology / Oncology Routine Consulting Provider: [facility] [place] Oncology/Hematology Reason for consultation: anemia Consult to Urology Routine Consulting Provider: [facility] [place] Urology Services Reason for consultation: stone/uti DS: Diagnosis Discharge Diagnosis (1) UTI (urinary tract infection): Status: Acute (2) Acute unilateral obstructive uropathy: Status: Acute (3) Left ureteral stone: Status: Acute DS: Summary Hospital Course Hospital Course: from initial hpi: 80-year-old female with a past medical history of HTN, HLD, dm, GERD, anemia, sciatica, CKD; presented to the hospital with a chief complaint of generalized weakness. Patient mentioned that for the past day she has been feeling generally weak and tired. Went to visit her sister in rehab and noted to be dizzy and exhausted. Fairly lethargic. Subsequently came to the hospital for further evaluation. Denies any fever chills. Denies any sick contacts. Denies any nausea vomiting. Denies any dysuria. Review of all other systems is negative except mentioned above ER course: Per ER team, patient on presentation noted to be afebrile; blood pressure on the soft side; urinalysis abnormal consistent with UTI. CT abdomen pelvis showed was done which showed UPJ stone with obstruction. Urology was notified who suggested admission to the medicine service and NPO after midnight for possible stenting. Patient received ceftriaxone. Patient hemoglobin also dropped from 10-7. Stool guaiac was negative. Patient denied any signs of bleeding. Patient given 1 unit of PRBC. Apparently patient being worked up for anemia as outpatient. hospital course: Patient was admitted for sepsis due to acute urinary tract infection complicated by E coli bacteremia due to obstructing left ureteral stone. She was treated with ceftriaxone and sepsis resolved. She was seen by Urology who placed stent in the left ureter. She will follow up outpatient with Urology. She will continue 7 more days of cefuroxime on discharge. For acute on chronic anemia likely inflammatory due to sepsis she was given 1 unit PRBC. Hemoglobin has remained stable between 7 and 8. For diabetes was continued insulin sliding scale. For mood disorder continued on sertraline. Patient is feeling better and she will be discharged home. Time Attestation Discharge Coordination Time (in mins): 34 Quality: Safe Use of Opioids Does Pt have an Active Cancer Diagnosis on the Problem List?: No Quality: Stroke Does the patient have a stroke diagnosis?: No Physical Exam Exam: Exam: General: AO X 3, frail, nad Resp: CTA bilateral, no accessory muscles used CVS: S1,S2,RRR GI: soft, non tender, non distended Neuro: motor grossly intact, alert Psych: appropriate affect, appropriate insight Vital Signs: Vital Signs: Last Vital Signs Temp 97.7 F 05/16/25 07:12 Pulse 78 05/16/25 07:12 Resp 16 05/16/25 07:12 BP 166/76 H 05/16/25 07:12 Pulse Ox 93 05/16/25 07:12 O2 Del Method Room Air 05/16/25 07:12 O2 Flow Rate 1 05/14/25 15:22 BMI result Body Mass Index 22.3 DS: Data Data Completed and Pending Labs on day of discharge: Laboratory Results - last 24 hr 05/15/25 05/15/25 05/15/25 11:17 16:22 20:55 WBC RBC Hgb Hct MCV MCH MCHC RDW Plt Count MPV Absolute Nucleated RBC Nucleated RBC % (auto) Sodium Potassium Chloride Carbon Dioxide Anion Gap BUN Creatinine Estim Creat Clear Calc Estimated GFR POC Glucose 122 H 136 H 114 Random Glucose Calcium 05/16/25 05/16/25 05:48 07:11 WBC 10.8 RBC 3.04 L Hgb 7.6 L Hct 24.9 L MCV 81.9 MCH 25.0 L MCHC 30.5 L RDW 16.5 H Plt Count 227 MPV 9.1 L Absolute Nucleated RBC 0.000 Nucleated RBC % (auto) 0.0 Sodium 142 Potassium 4.0 Chloride 110 H Carbon Dioxide 26 Anion Gap 10 L BUN 19 H Creatinine 0.85 Estim Creat Clear Calc 43.1 Estimated GFR > 60 POC Glucose 97 Random Glucose 98 Calcium 8.5 Discharge Plan Discharge Anticipated Discharge Date/Time: 05/16/25 08:35 Patient Disposition: Home, Self-Care Discharge Diagnosis: sepsis, uti Referrals: Bill Elder MD [Physician, Urology] - 1 Week Luma Lopez CNP [Primary Care Provider, Family Practice] - 1 Week Discharge Medications: New cefuroxime axetil 500 mg tablet 500 mg PO BID Qty: 14 0RF Continued metformin 500 mg tablet 500 mg PO DAILY Qty: 90 3RF sertraline 50 mg tablet 50 mg PO DAILY Qty: 90 3RF irbesartan 150 mg tablet 150 mg PO DAILY Qty: 90 3RF ferrous sulfate [FeroSul] 325 mg (65 mg iron) tablet 325 mg PO DAILY Dupixent Pen 300 mg/2 mL pen injector 300 mg SUBCUT Q14D (DME) compr.stocking,knee,long,x-lrg Misc See Rx Instructions .Route Qty: 2 2RF Rx Instructions: As directed (DME) comp.stocking,thigh,long,x-lrg Misc See Rx Instructions .Route Qty: 2 3RF Rx Instructions: As directed cholecalciferol (vitamin D3) 50 mcg (2,000 unit) capsule 50 mcg PO DAILY Discharge Orders: Discharge Order (Routine); Ordered 05/16/25 Ordered By: Duglas Garsia Diet: Advance to usual diet Activity on Discharge: As tolerated Stand Alone Forms: Patient Portal Discharge page Print Language: [place] Care Plan Goals: recovery Health Concerns: uti Plan of Treatment: Follow up with Urology, 7 more days of cefuroxime Assessment: See above
[2025-05-16] MEDS: 0.9 % Sodium Chloride Flush 3 ML SYRINGE IVFLUSH (08:39)
[2025-05-16] MEDS: Ferrous Sulfate 324 MG TABLET.DR PO (08:40)
--- NOTE | 2025-05-16 09:19 | MHC.CM.PN ---
pt dcd home self care
[2025-05-16 11:10] LABS: Glucose, Whole Blood 84 mg/dL (60-115)
[2025-05-16 11:44] VITALS: BP 171/70; PULSE 82; RESP 16; TEMP 36.4; O2SAT 92
== END 2025-05-16 12:45 | disposition home or self-care (01) | DRG 854 ==
LOC: HO.ED 21:51 → HO.EDOVER 22:10 → HO.S3 05-14 14:56
PROVIDERS: Internal Medicine; Physician Assistant; Urology; Admitting Provider Hospitalist; Emergency Provider Student in an Organized Health Care Education/Training Program; PCP Nurse Practitioner Primary Care; Visit Provider Internal Medicine
PROC: 0T778DZ Dilation of Left Ureter with Intraluminal Device, Via Natural or Artificial Opening Endoscopic (ICD-10-PCS; principal; 2025-05-14 13:30)
DX: A41.9 Sepsis, unspecified organism (principal); D62 Acute posthemorrhagic anemia; N13.6 Pyonephrosis; L30.9 Dermatitis, unspecified; B96.20 Unspecified Escherichia coli [E. coli] as the cause of diseases classified elsewhere; F39 Unspecified mood [affective] disorder; Z20.822 Contact with and (suspected) exposure to COVID-19; Z79.84 Long term (current) use of oral hypoglycemic drugs; Z79.899 Other long term (current) drug therapy
CPT/HCPCS: 36415; 71045; 74177; 80048; 80053; 81001; 82272; 82607; 82746; 82947; 83010; 83540; 83605; 83615; 83690; 83735; 85007; 85025; 85027; 85045; 86850; 86900; 86901; 86923; 87040; 87077; 87086; 87186; 87205; 87637; 93005; 99285; C1758; C1769; C2617; J0131; J0690; J0696; J1100; J1644; J2003; J2405; J2704; J3010; J7120; P9016; Q9967

== ENCOUNTER → 2025-05-13 18:45 | Outpatient (BNV) | payer MEDICARE, SELFPAY | PROVIDERS: PCP Nurse Practitioner Primary Care; Visit Provider Radiology Diagnostic Radiology | DX: N13.30 Unspecified hydronephrosis (principal); A41.9 Sepsis, unspecified organism | CPT/HCPCS: 71045; 74177 ==

== ENCOUNTER → 2025-05-13 18:45 | Outpatient (BNV) | payer MEDICARE, SELFPAY | PROVIDERS: Admitting Provider Hospitalist; Emergency Provider Student in an Organized Health Care Education/Training Program; PCP Nurse Practitioner Primary Care; Visit Provider Internal Medicine | DX: R00.0 Tachycardia, unspecified (principal); I49.3 Ventricular premature depolarization | CPT/HCPCS: 93010 ==

== ENCOUNTER → 2025-05-13 22:04 | Outpatient (BNV) | payer MEDICARE, SELFPAY | PROVIDERS: Admitting Provider Hospitalist; Emergency Provider Student in an Organized Health Care Education/Training Program; PCP Nurse Practitioner Primary Care; Visit Provider Internal Medicine | DX: D64.9 Anemia, unspecified (principal) | CPT/HCPCS: 99222; 99233; 99239 ==

== ENCOUNTER → 2025-05-13 22:04 | Outpatient (BNV) | payer MEDICARE, SELFPAY | PROVIDERS: Admitting Provider Hospitalist; Emergency Provider Student in an Organized Health Care Education/Training Program; PCP Nurse Practitioner Primary Care; Visit Provider Urology | DX: N13.2 Hydronephrosis with renal and ureteral calculous obstruction (principal); N39.0 Urinary tract infection, site not specified; N13.9 Obstructive and reflux uropathy, unspecified | CPT/HCPCS: 52332; 74420; 99232 ==